=== PATIENT | male | born 1950 | race Caucasian/White ===

== ENCOUNTER 2024-02-06 06:22 | Inpatient (IN) ==
--- NOTE | 2024-01-31 10:17 | Anesthesiology Consultation ---
Date of Service January 31, 2024 Assessment & Plan (1) Encounter for pre-operative examination: - cardiology office visit 01/10/24 S: "...shortness of breath with exertion and recurrent episodes of syncope...worsening since 2019...multiple falls...2 week monitor...cardiac MRI...aortic root dilatation..." - Per vocational evaluator on 01/31/24: No known infectious disease contacts, current infectious disease symptoms in past 10 days or COVID positive test result in the past 30 days. Chart Review Chart Review: data entry initiated History Surgery Operation Date: 02/06/24 07:15 Proposed Procedures p Transesophageal Echo w/Anesthesia - Angel Gooden, Height/Weight Height: 5 ft 10 in Weight: 106.594 kg Allergies Allergy/AdvReac Type Severity Reaction Status Date / Time NSAIDS (Non-Steroidal Allergy Unknown unknown, Verified 01/31/24 10:12 Anti-Inflamma listed in [facility] EMR Medications Home Medications Medication Instructions Recorded Confirmed Last Taken amlodipine 2.5 mg tablet 2.5 mg PO QAM 01/31/24 01/31/24 Unknown aspirin 81 mg capsule 81 mg PO DAILY 01/31/24 01/31/24 Unknown atorvastatin 20 mg tablet 20 mg PO QAM 01/31/24 01/31/24 Unknown furosemide 20 mg tablet 20 mg PO QAM 01/31/24 01/31/24 Unknown magnesium 200 mg tablet 400 mg PO QPM 01/31/24 01/31/24 Unknown multivit,Ca,min-iron 8 mg-folic 1 tab PO QPM 01/31/24 01/31/24 Unknown acid 200 mcg-lycopene 600 mcg tablet (Centrum Men) potassium chloride 10 mEq 10 meq PO QAM 01/31/24 01/31/24 Unknown capsule,extended release valsartan 320 mg tablet 320 mg PO HS 01/31/24 01/31/24 Unknown vitamin B complex 2 tab PO DAILY 01/31/24 01/31/24 Unknown Past Medical History Medical History (Updated 01/31/24 @ 10:10 by Mily Bob PA-C) Aortic valve regurgitation had cardiac MRI last week, Dr. Gooden, also had echo recently - [address] History of melanoma (1997) left arm, removed HLD (hyperlipidemia) Hx of Crohn's disease > 30 years ago Hx of lower gastrointestinal bleeding (1985) due to chron's, had 2 units prbc's Hx of vertigo started getting episodes in 2020, where he had "chest pounding" symptoms and dizziness- worked up by pcp and then got new pcp- then got to dr. gooden, currently being worked up Hypertension Peripheral edema more on left side, takes lasix daily Past Surgical History Surgical History History of bowel resection (1985) 1.5 foot removed at ileum-cecum removed, due to tumor - benign - History of tonsillectomy and adenoidectomy (1955) Hx of bilateral cataract extraction (2022) Hx of colonoscopy Hx of hernia repair (2013) [facility], several years ago, right inguinal Hx of melanoma excision (1997) left arm, also had ln removed in arm pit Social History Smoking Status: Never smoker Do You Dip or Chew Tobacco: No Hx Alcohol Use: No Alcohol Intake Frequency Comment: quit in the Hx Substance Use: No substance use type: does not use Testing Laboratory Results 01/10/24 SODIUM: 142 POTASSIUM: 4.1 CHLORIDE: 104 CO2: 26 BUN: 30 CREATININE: 1.2 GLUCOSE: 95 Electrocardiogram Date: 12/29/23 Sinus rhythm with 1st degree AV block and with fusion complexes, rate 91 bpm RBBB Left anterior fascicular block Bifascicular block LVH with secondary repolarization abnormality Chest X-Ray Date: 09/30/23 No pulmonary infiltrate. Aortic atherosclerosis and ectasia or aneurysmal dilatation. Echocardiogram Date: 12/29/23 EF 50-54% Moderate cLVH Septal motion is abnormal consistent with intraventricular conduction delay Aortic valve is mildly calcified with moderate to severe aortic insufficiency in an eccentric jet coursing across the anterior mitral valve leaflet. Severity may be underestimated by current study. Moderately enlarged aortic root and proximal ascending aorta Other Testing Cardiac MRI 01/25/24 Mild aortic regurgitation Ascending aorta moderately dilated at 45 mm, root measures 46 mm EF 34% Chest CT 10/06/23 Ectasia of ascending thoracic aorta which measures up to 4.8 cm Solid pulmonary nodules
--- OUTSIDE RECORDS SUMMARY | 2024-02-06 06:35 | External Medical Summary | Summary of Care ---
Author Name Unknown Organization [facility] Address [address] [place] [address] Phone [phone] Care Team Providers Care Control Analyst Name Role Phone Gabriela Rangel MD Primary Care Provider [phone] Reason for Visit * Reason Onset Date Comments Medication Refill 01/27/2024 Encounter Details Date Type Department Care Team (Late st Contact Info) Description 01/27/2024 Refill General Internal Medicine [facility] [address] [facility] [place] [address] Gabriela Rangel MD [address] [place] [address] Nonrheumatic aortic valve insufficiency; Chronic diastolic heart failure due to valvular disease (HCC) Allergies Active Allergy Reactions Criticality Noted Date Comments Lactose Intolerance 01/29/2008 Nsaids Other (Please comment) 01/29/2008 Internal bleeding documented as of this encounter (statuses as of 01/30/2024) Medications MULTIVITAL-M PO TABS 4 Active Vitamin B Complex-C Oral Capsule Take 1 Capsule by mouth in the morning. 30 Capsule 3 Active amLODIPine Besylate 2.5 MG Oral Tablet (Norvasc) Take 1 Tablet by mouth in the morning. Active Valsartan 320 MG Oral Tablet (Diovan)Indicat ions:HTN, goal below 140/90 Take 1 Tablet by mouth in the morning. 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 with food.. 100 Tablet 5 4 Active Additional Information Patient not taking.Reported on 01/10/2024 Atorvastatin Calcium 20 MG Oral Tablet (Lipitor)Indica tions:Atheroscl erosis of [place] coronary artery of [place] heart without angina pectoris Take 1 Tablet by mouth in the morning. 90 Tablet 5 4 Active Furosemide 20 MG Oral Tablet (Lasix)Indicati ons:Nonrheumati c aortic valve insufficiency,C hronic diastolic heart failure due to valvular disease (HCC) Take 1 Tablet by mouth in the morning. 90 Tablet 1 4 Active Potassium Chloride ER 10 MEQ Oral Capsule Extended ReleaseIndicati ons:Nonrheumati c aortic valve insufficiency,C hronic diastolic heart failure due to valvular disease (HCC) Take 1 Capsule by mouth in the morning. 90 Capsule 1 4 Active documented as of this encounter (statuses as of 01/30/2024) Active Problems Problem Noted Date Diagnosed Date Crohn's disease of large intestine without compl ication 05/09/2023 Hx of actinic keratosis 09/06/2019 Crohn's disease, unspecified, without complicati ons 12/22/2016 History of basal cell carcinoma 07/16/2013 Overview (09/06/2019): Back 2010 HTN, goal below 140/90 05/03/2012 Hx of melanoma of skin 05/31/2011 Overview (09/06/2019): MM date 1997, Depth 3.38mm, Location left posterior arm SLN negative BMI 32.0-32.9,adult 07/21/2009 Overview (07/21/2009): Per Obesity Protocol, #19 documented as of this encounter (statuses as of 01/30/2024) Resolved Problems Problem Noted Date Diagnosed Date Resolved Date Prediabetes 03/22/2017 02/24/2018 Overview: Per Prediabetes protocol #1 Hearing loss 05/03/2012 02/13/2018 ADVANCE DIRECTIVE INFORMATION 01/25/2012 12/12/2023 Hemorrhoids, external without complications 01/29/2008 12/22/2016 documented as of this encounter (statuses as of 01/30/2024) Immunizations Name Administration Dates Next Due COVID-19 mRNA, LNP-s, No Pre serve, 2-Dose Series (Lulu) 05/22/2021,04/30/2020,04/04/2020 HEP A - Hepatitis A (Adult > 18 yrs) 02/22/2017 Pneumococcal Conjugate Vacc, 13 Valent (Prevnar) 05/06/2014 Pneumococcal Polysaccharide PPV23 (Pneumovax) 08/08/2017,05/03/2012 Season Influenza, Quad, PF, Adjuvanted, 65+ Yrs, IM (FLUAD) 10/23/2019 Seasonal Influenza Vac., MDV , IM, 0.5 mL (Fluzone) 11/05/2013,11/03/2012,05/03/2012,11/21,11/08/2007 Seasonal Influenza Virus Vac cine, Unspecified Formulation 11/08/2019,10/29/2018 Seasonal Influenza, High Dos e, Trivalent, PF, IM (Fluzone HD) 12/12/2018 Seasonal Influenza, PF, 6 M & above, IM , (FluLaval or Fluzone) 10/21/2020,02/13/2018,12/22/2016 Seasonal Influenza, Quadriva lent, No Preserve, IM 11/13/2015,11/07/2014 TDAP (age 10 and older)(Boostrix) 07/26/2018 TDAP, Age 7 and older, IM (Adacel) 01/29/2008 Varicella Zoster Vaccine (Adult) 11/03/2012 Zoster Vaccine Recombinant (Shingrix) 10/21/2020 ,06/06/2020 documented as of this encounter Social History Tobacco Use Types Packs/Day Years Used Date Smoking Tobacco: Some Days Cigars Smokeless Tobacco: Never Comments:cigar 3-4 times per week Alcohol Use Standard Drinks/Week Comments No 0 (1 standard drink = 0.6 oz pur e alcohol) PHQ-2 Answer Date Recorded PHQ Adult Total Score 0 12/15/2022 Hunger Vital Sign Answer Date Recorded Within the past 12 months, y ou worried that your food would run out before you got the money to buy more. Never true 12/07/19 23 Within the past 12 months, t he food you bought just didn't last and you didn't have money to get more. Never true 12/06/2022 Childcare Answer Date Recorded Do you feel overwhelmed with taking care of a child, family member or friend? No 12/06/2022 Does your family need help f inding childcare? (Household - for ages 0-17 years) Not on file 12/06/2022 Clothing Answer Date Recorded Have you been unable to get clothing when it was really needed? No 12/06/2022 Is your family able to get c lothes or diapers when needed? (Household - for ages 0-17 years) Not on file 12/06/2022 Personal Safety Answer Date Recorded Do you feel unsafe or have concerns for your saf ety? No 12/06/2022 Do you have concerns for you r family's safety? (Household - for ages 0-17 years) Not on file 12/06/2022 Utilities Answer Date Recorded Do you have trouble paying y our heating, water, or electric bill? (Adult - for ages 18 years and over) Not on file 12/10/2023 Is your family able to pay t he heat, water, or electric bill? (Household - for ages 0-17 years) Not on file 12/10/2023 Does your family have access to good internet? (Household - for ages 0-17 years) Not on file 12/10/2023 Employment Status Answer Date Recorded Are you unemployed or without regular income? No 12/06/2022 Does the household have a re gular source of income? (Household - for ages 0-17 years) Not on file 12/06/2022 Social Connections Answer Date Recorded How often do you feel lonely or isolated from those around you? (Adult - for ages 18 years and over) Not on file 12/10/2023 Financial Resource Strain Answer Date R ecorded Do you have any trouble payi ng for your medications, or do you think you might in the future? No 12/06/2022 Does your family have troubl e paying for medicine? (Household - for ages 0-17 years) Not on file 12/06/2022 Transportation Needs Answer Date Record ed READ ONLY Do you have troubl e getting a ride to medical visits or work? Never True 12/06/2022 Does your family have a hard time getting a ride to doctors visits? (Household - for ages 0-17 years) Not on file 12/06/2022 Has lack of transportation k ept you from medical appointments, meetings, work, or from getting things needed for daily living? Check all that apply. (Adult - for ages 18 years and over) Not on file 12/06/2022 Do you (or your family) have trouble finding or paying for a ride (transportation)? (Household - for ages 0-17 years) Not on file 12/06/2022 Housing Stability Answer Date Recorded Do you currently live in a s helter or have no steady place to sleep at night? No 12/06/2022 READ ONLY Do you think you a re at risk of becoming homeless? No 12/06/2022 Does your family worry about paying for your home or becoming homeless? (Household - for ages 0-17 years) Not on file 1 Are you homeless or worried that you might be in the future? (Adult - for ages 18 years and over) Not on file Are you (or your family) yefri eless or worried that you might be in the future? (Household - for ages 0-17 years) Not on file Food Insecurity Answer Date Recorded Do you need food for this week? No 12/06/2022 Are you able to get enough f ood for your family? (Household - for ages 0-17 years) Not on file 12/06/2022 Does your family need food t his week? (Household - for ages 0-17 years) Not on file 12/06/2022 Do you always have enough fo od for your family? (Household - for ages 0-17 years) Not on file 12/06/2022 Sex and Gender Information Value Date Recorded Sex Assigned at Male 06/05/2018 9:11 AM EDT Legal Sex Male 6:40 AM EST Gender Identity Male 06/05/2018 9:11 AM EDT Sexual Orientation Straight 06/05/2018 9: 11 AM EDT Occupation Industry Job Start Date Job End Date Not on file Not on file Not on file Not on file documented as of this encounter Plan of Treatment Upcoming Encounters Date Type Department Care Team (Late st Contact Info) Description 03/19/2024 9:00 AM EST Office Visit Cardiology, [facility] [address] [place] [address] Krys Garcia CRNP [address] [facility] [place] [address] 08/03/2024 3:45 PM EDT Office Visit Dermatology [facility] [address] [facility] [place] [address] Darin Tolbert MD [address] [facility] [place] [address] 10/12/2024 9:00 AM EDT Imaging Radiology [facility] [address] [facility] [address] [place] [address] Scheduled Procedures Name Priority Associated Diagnoses Date/Ti me COLONOSCOPY FLEXIBLE PROXIMAL DIAGNOSTIC Recall Crohn's disease (HCC) Health Maintenance Due Date Last Done Comments Adult Wellness Visit 06/06/2019 06/05/2018 COVID-19 Vaccine ( season) 2023 05/22/2021, 04/30/2020, 04/04/2020 Influenza Vaccine (FLU shot) (#1) 2023 10/21/2020, 11/08/2019, 10/23/2019, Additional history exists Depression Screening 12/16/2023 12/15/2022 *NEPHROLOGY REFERRAL DUE TO RESISTANT HTN 01/12/2024 GFR 01/09/2025 01/10/2024, 09/08, 05/09/2023, Additional history exists Albumin/Creatinine Ratio 04/20/2025 04/20/2022 Colonoscopy 06/05/2026 06/06/2023, 05/09, 04/11/2019, Additional history exists DTap/Tdap Vaccines (3 - Td or Tdap) 07/26/2028 07/26/2018, 01/29/2008 Pneumococcal Vaccine: 65+ Years Completed 08/08/2017, 05/06/2014, 05/03/2012 Zoster Vaccines Completed 10/21/2020, 05/10, 11/03/2012 HPV (Gardasil) Vaccine Aged Out No lo nger eligible based on patient's age to complete this topic Hepatitis B Vaccine Aged Out No longe r eligible based on patient's age to complete this topic MENINGOCOCCAL (MENACTRA/MENVEO) Aged Out No longer eligible based on patient's age to complete this topic documented as of this encounter Medical Devices Implanted Type Area Project Controller Device Identifier Shelf Expiration Date Model / Serial / Lot Lens Li61ao 13.00mm 21.00 - [id number] - [id number] Implanted:Qty: 1 on 12/21/2022 by Jose Mittal MD at OR [facility] Left: Eye [employer]OM[employer] 07/08/2027 [id number] / [id number] / [id number] Lens Li61ao 13.00mm 20.50 - [id number] - [id number] Implanted:Qty: 1 on 12/28/2022 by Jose Mittal MD at OR [facility] Right: Eye [employer] LOMB 09/07/2027 [id number] / [id number] / [id number] documented as of this encounter Visit Diagnoses Diagnosis Nonrheumatic aortic valve insufficiency Aortic valve disorders Chronic diastolic heart failure due to valvular disease (HCC) documented in this encounter Advance Directives * Full Code (Latest Code Status on File) Date Activated Date Inactivated Comments 12/28/2022 1:35 PM 12/28/2022 6:57 PM This order reflects the patients wishes and were consensually agreed upon. Question Answer Comments Discussion of Advance Directives occurred with: Patient Does the patient have a Living Will? No Does the patient have Health Care Power of Attor josh? No * Full Code Date Activated Date Inactivated Comments 12/21/2022 10:16 AM 12/21/2022 4:02 PM This orde r reflects the patients wishes and were consensually agreed upon. Question Answer Comments Discussion of Advance Directives occurred with: Patient Does the patient have a Living Will? No Does the patient have Health Care Power of Attor josh? No Care Teams Control Analyst Relationship Specialty Start Date End Date Gabriela Rangel MD [address] [place] [address] PCP - General Internal Medicine 10/05/23 documented as of this encounter
--- OUTSIDE RECORDS SUMMARY | 2024-02-06 06:35 | External Medical Summary | Summary of Care ---
Author Name Unknown Organization [facility] Address [address] [place] [address] Phone [phone] Care Team Providers Care Manager Of Data Name Role Phone Gabriela Rangel MD Primary Care Provider [phone] Reason for Referral * Precert (Diagnostic Medical) (Within 10 days (routine)) - Authorized Specialty Diagnoses / Procedures Referred By Contac t Referred To Contact Cardiac Studies Diagnoses Nonrheumatic aortic valve insufficiency Syncope, unspecified syncope type Procedures TRANSESOPHAGEAL ECHO (COMPLETE) Angel Gooden DO [address] [place] [address] Phone: tel: fax: Referral ID Status Reason Start Date Expiration Date V isits Requested Visits Authorized [id number] Authorized Precert 01/31/2024 999 999 Reason for Visit * Reason Onset Date Comments Abnormal Test Results 01/30/2024 Encounter Details Date Type Department Care Team (Late st Contact Info) Description 01/30/2024 Telephone Cardiology, [facility] [address] [place] [address] Angel Gooden DO [address] [place] [address] Abnormal Test Results Allergies Active Allergy Reactions Criticality Noted Date Comments Lactose Intolerance 01/29/2008 Nsaids Other (Please comment) 01/29/2008 Internal bleeding documented as of this encounter (statuses as of 01/31/2024) Medications MULTIVITAL-M PO TABS 4 Active Vitamin [...] MG Oral Tablet ChewableIndicat ions:Atheroscle rosis of [place] coronary artery of [place] heart without angina pectoris Take 1 Tablet by mouth in the morning. with food.. 100 Tablet 5 4 Active Additional Information Patient not taking.Reported on 01/10/2024 Atorvastatin Calcium 20 MG Oral Tablet (Lipitor)Indica tions:Atheroscl erosis of [place] coronary artery of [place] heart without angina pectoris Take 1 Tablet [...] as of this encounter (statuses as of 01/31/2024) Active Problems Problem Noted Date Diagnosed Date [...] as of this encounter (statuses as of 01/31/2024) Resolved Problems Problem Noted Date Diagnosed Date Resolved Date Prediabetes 03/22/2017 02/24/2018 Overview: Per Prediabetes protocol #1 Hearing loss 05/03/2012 02/13/2018 ADVANCE DIRECTIVE INFORMATION 01/25/2012 12/12/2023 Hemorrhoids, external without complications 01/29/2008 12/22/2016 documented as of this encounter (statuses as of 01/31/2024) Immunizations Name Administration Dates Next Due COVID-19 mRNA, LNP-s, No Pre serve, 2-Dose Series ([address]) 05/22/2021,04/30/2020,04/04/2020 HEP A - Hepatitis A (Adult [...] on file documented as of this encounter Miscellaneous Notes * Telephone Encounter - Ken Heath LPN - 01/31/2024 9:01 AM EST Procedure set up. Patient aware via phone call and MyChart instructions. * Telephone Encounter - Angel Gooden DO - 01/30/2024 5:16 PM EST I called and discussed recent test results with the patient. Findings are consistent with severe aortic stenosis with left ventricular systolic dysfunction which would correlate with his recent complaints of shortness of breath with exertion. Although the initial cardiac MRI report described mild aortic regurgitation, the measurements were reassessed and an addendum is in process that on recalculation cardiac MRI results are consistent with severe aortic valve regurgitation. Left ventricular ejection fraction by MRI is moderately reduced at 34%. Recommend proceeding with a transesophageal echocardiogram further assessment. Patient agreeable. Cardiology nursing, please help schedule MOHAMUD, perhaps with me and anesthesia on Tuesday02/06/2024 at [place]. Repeat lab work including a CBC, basic metabolic panel, and coagulation studies he had been ordered. Patient agreeable to MOHAMUD. Future considerations include cardiac catheterization and CT surgery referral. Angel Gooden DO documented in this encounter Plan of Treatment Upcoming Encounters Date Type Department Care Team (Late st Contact Info) Description 03/19/2024 9:00 AM EST Office Visit Cardiology, [facility] [address] [place] [address] Krys Garcia CRNP [address] [facility] [place] [address] 08/03/2024 3:45 PM EDT Office Visit Dermatology [facility] [address] [facility] [place] [address] Darin Tolbert MD [address] [facility] [address] 10/12/2024 9:00 AM EDT Imaging Radiology [address] [place] [address] Scheduled Orders Name Type Priority Associated Diagnoses Orde r Schedule CBC Lab Routine Nonrheumatic aortic valve insufficiency Syncope, unspecified syncope type Preoperative cardiovascular examination Expected: 01/31/2024, Expires: 05/04/2024 BASIC METABOLIC PANEL Lab Routine Nonrheumatic aortic valve insufficiency Syncope, unspecified syncope type Preoperative cardiovascular examination Expected: 01/31/2024, Expires: 05/04/2024 APTT Lab Routine Nonrheumatic aortic valve insufficiency Syncope, unspecified syncope type Preoperative cardiovascular examination Expected: 01/31/2024, Expires: 05/04/2024 PT INR Lab Routine Nonrheumatic aortic valve insufficiency Syncope, unspecified syncope type Preoperative cardiovascular examination Expected: 01/31/2024, Expires: 05/04/2024 TRANSESOPHAGEAL ECHO (COMPLETE) Echocardiology Routine Nonrheumatic aortic valve insufficiency Syncope, unspecified syncope type Expected: 01/31/2024, Expires: 05/30/2024 Scheduled Procedures Name Priority Associated Diagnoses Date/Ti [...] this encounter Medical Devices Implanted Type Area Diesel Mechanic Farm Device Identifier Shelf Expiration Date Model / Serial / Lot Lens Li61ao 13.00mm 21.00 - [id number] - [id number] Implanted:Qty: 1 on 12/21/2022 by Jose Mittal MD at OR [facility] Left: Eye [employer]CH [employer] LOMB 07/08/2027 [id number] / [id number] / [id number] Lens Li61ao 13.00mm 20.50 - [id number] - [id number] Implanted:Qty: 1 on 12/28/2022 by Jose Mittal MD at OR [facility] Right: Eye [employer]CH [employer] LOMB 09/07/2027 [id number] / [id number] / [id number] documented as of this encounter Visit Diagnoses Diagnosis Nonrheumatic aortic valve insufficiency- Primary Aortic valve disorders Syncope, unspecified syncope type Preoperative cardiovascular examination Pre-operative cardiovascular examination documented in this encounter Advance Directives * [...] Power of Attor josh? No Care Teams Manager Of Data Relationship Specialty Start Date End Date Gabriela Rangel MD [address] [place] [address] PCP - General Internal Medicine 10/05/23 documented as of this encounter
--- OUTSIDE RECORDS SUMMARY | 2024-02-06 06:35 | External Medical Summary | Summary of Care ---
Author Name Unknown Organization [facility] Address [address] [place] [address] Phone [phone] Care Team Providers Care Cyber Operator Name Role Phone Segundo Rangel MD Primary Care Provider [phone] Reason for Visit * Reason Onset Date Comments Medication Refill 01/25/2024 Encounter Details Date Type Department Care Team (Late st Contact Info) Description 01/25/2024 Refill General Internal Medicine [facility] 200 [facility] [place] [address] Segundo Rangel MD [address] [place] [address] Nonrheumatic aortic valve insufficiency; Chronic diastolic heart failure due to valvular disease (HCC) Allergies Active Allergy Reactions Criticality Noted Date Comments Lactose Intolerance 01/29/2008 Nsaids Other (Please comment) 01/29/2008 Internal bleeding documented as of this encounter (statuses as of 01/25/2024) Medications MULTIVITAL-M PO TABS 4 Active Vitamin B Complex-C Oral Capsule Take 1 Capsule by mouth in the morning. 30 Capsule 3 Active amLODIPine Besylate 2.5 MG Oral Tablet (Norvasc) Take 1 Tablet by mouth in the morning. Active Valsartan 320 MG Oral Tablet (Diovan)Indica tions:HTN, goal below 140/90 Take 1 Tablet by mouth in the morning. 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 with food.. 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 90 Tablet 5 4 Active Furosemide 20 MG Oral Tablet (Lasix)Indicat ions:Nonrheuma tic aortic valve insufficiency, Chronic diastolic heart failure due to valvular disease (HCC) Take 1 Tablet by mouth in the morning. 90 Tablet 1 4 Active Potassium Chloride ER 10 MEQ Oral Capsule Extended ReleaseIndicat ions:Nonrheuma tic aortic valve insufficiency, Chronic diastolic heart failure due to valvular disease (HCC) Take 1 Capsule by mouth in the morning. 90 Capsule 1 4 Active Furosemide 20 MG Oral Tablet (Lasix)Indicat ions:Nonrheuma tic aortic valve insufficiency, Chronic diastolic heart failure due to valvular disease (HCC) Take 1 Tablet by mouth in the morning. 30 Tablet 1 4 01/25/20 24 Discontin ued(Refil l) Potassium Chloride ER 10 MEQ Oral Capsule Extended ReleaseIndicat ions:Nonrheuma tic aortic valve insufficiency, Chronic diastolic heart failure due to valvular disease (HCC) Take 1 Capsule by mouth in the morning. 30 Capsule 1 4 01/25/20 24 Discontin ued(Refil l) Hospital, Clinic, or Other Facility Administered Medication Ordered Dose Route Frequency Start Date End Date Status sodium chloride 0.9 % flush/inj 50 mL 50 mL IV PUSH ONCE 01/25/2024 01/25/2024 Active documented as of this encounter (statuses as of 01/25/2024) Active Problems Problem Noted Date Diagnosed Date [...] as of this encounter (statuses as of 01/25/2024) Resolved Problems Problem Noted Date Diagnosed Date Resolved Date Prediabetes 03/22/2017 02/24/2018 Overview: Per Prediabetes protocol #1 Hearing loss 05/03/2012 02/13/2018 ADVANCE DIRECTIVE INFORMATION 01/25/2012 12/12/2023 Hemorrhoids, external without complications 01/29/2008 12/22/2016 documented as of this encounter (statuses as of 01/25/2024) Immunizations Name Administration Dates Next Due COVID-19 mRNA, LNP-s, No Pre serve, 2-Dose Series ([employer]) 05/22/2021,04/30/2020,04/04/2020 HEP A - Hepatitis A (Adult [...] 18 years and over) Not on file 10/30/202 3 Are you (or your family) yefri eless [...] encounter Miscellaneous Notes * Telephone Encounter - Segundo Rangel MD - 01/25/2024 1:25 PM ESTSigned Prescriptions: Disp Refills Furosemide 20 MG Oral Tablet (Lasix) 90 Tab*1 Sig: Take 1 Tablet by mouth in the morning. Authorizing Provider: SEGUNDO RANGEL Potassium Chloride ER 10 MEQ Oral Capsule *90 Cap*1 Sig: Take 1 Capsule by mouth in the morning. Authorizing Provider: SEGUNDO RANGEL * Telephone Encounter - Sara Alvarado CMA - 01/25/2024 11:50 AM ESTPending Prescriptions: Disp Refills Furosemide 20 MG Oral Tablet (Lasix) 90 Tab*1 Sig: Take 1 Tablet by mouth in the morning. Potassium Chloride ER 10 MEQ Oral Capsule *90 Cap*1 Sig: Take 1 Capsule by mouth in the morning. * Telephone Encounter - Sara Alvarado CMA - 01/25/2024 11:49 AM EST Did you pend patient's preferred pharmacy and medication before forwarding?yes Pharmacy: [id number] [facility] Pending Prescriptions: Disp Refills Furosemide 20 MG Oral Tablet (Lasix) 90 Tab*1 Sig: Take 1 Tablet by mouth in the morning. Potassium Chloride ER 10 MEQ Oral Capsule*90 Cap*1 Sig: Take 1 Capsule by mouth in the morning. Last Visit: 10/31/2023 (in office), Visit date not found (telemedicine) Next Visit: Visit date not found If no future appointments scheduled, and last appointment is greater than a year ago, please schedule patient for a follow-up appointment Last date the medication was ordered: 12/30/23 Is this request for a controlled substance?No Urine Drug Screen:No results found for this or any previous visit. Patient Phone Numbers Labs: Lab Results Component Value Date/Time CREAT 1.2 01/10/2024 10:37 AM CREAT 1.2 03/09/2019 09:35 AM POTASSIUM 4.1 01/10/2024 10:37 AM POTASSIUM 4.2 03/09/2019 09:35 AM LDL 57 01/10/2024 10:37 AM LDL 74 05/09/2023 09:22 AM LDL 79 03/09/2019 09:35 AM LDL NOT APPLICABLE 03/09/2019 09:35 AM ALT 36 01/10/2024 10:37 AM ALT 31 03/09/2019 09:35 AM HGBA1C 5.5 06/09/2023 09:45 AM HGBA1C 5.5 02/13/2018 09:49 AM * Telephone Encounter - Pau Enrique OSA - 01/25/2024 11:34 AM EST 90 day request * Telephone Encounter - Pau Enrique OSA - 01/25/2024 11:33 AM EST Did you pend patient's preferred pharmacy and medication before forwarding?yes Pharmacy: [id number] [id number] [facility] Pending Prescriptions: Disp Refills Furosemide 20 MG Oral Tablet (Lasix) 30 Tab*1 Sig: Take 1 Tablet by mouth in the morning. Potassium Chloride ER 10 MEQ Oral Capsule*30 Cap*1 Sig: Take 1 Capsule by mouth in the morning. Last Visit: 10/31/2023 (in office), Visit date not found (telemedicine) Next Visit: Visit date not found If no future appointments scheduled, and last appointment is greater than a year ago, please schedule patient for a follow-up appointment Last date the medication was ordered: [id number] Is this request for a controlled substance?No Urine Drug Screen:No results found for this or any previous visit. Patient Phone Numbers Labs: Lab Results Component Value Date/Time CREAT 1.2 01/10/2024 10:37 AM CREAT 1.2 03/09/2019 09:35 AM POTASSIUM 4.1 01/10/2024 10:37 AM POTASSIUM 4.2 03/09/2019 09:35 AM LDL 57 01/10/2024 10:37 AM LDL 74 05/09/2023 09:22 AM LDL 79 03/09/2019 09:35 AM LDL NOT APPLICABLE 03/09/2019 09:35 AM ALT 36 01/10/2024 10:37 AM ALT 31 03/09/2019 09:35 AM HGBA1C 5.5 06/09/2023 09:45 AM HGBA1C 5.5 02/13/2018 09:49 AM documented in this encounter Plan of Treatment Upcoming Encounters Date Type Department Care Team (Late st Contact Info) Description 03/19/2024 9:00 AM EST Office Visit Cardiology, [facility] [address] [facility] [place] [address] Krys Garcia CRNP [address] [place] [address] 08/03/2024 3:45 PM EDT Office Visit Dermatology [facility] [address] [place] [address] Darin Tolbert MD [address] [place] [address] 10/12/2024 9:00 AM EDT Imaging Radiology [facility] [address] [facility] [place] [address] Scheduled Procedures Name Priority Associated Diagnoses Date/Ti [...] 08/08/2017, 05/06/2014, 05/03/2012 Zoster Vaccines Completed 10/21/2020, 04/3 , 11/03/2012 HPV (Gardasil) Vaccine Aged Out No lo nger eligible based on patient's age to complete this topic Hepatitis B Vaccine Aged Out No longe r eligible based on patient's age to complete this topic MENINGOCOCCAL (MENACTRA/MENVEO) Aged Out No longer eligible based on patient's age to complete this topic documented as of this encounter Medical Devices Implanted Type Area Director Television Device Identifier Shelf Expiration Date Model / Serial / Lot Lens Li61ao 13.00mm 21.00 - [id number] - [id number] Implanted:Qty: 1 on 12/21/2022 by Jose Mittal MD at OR [facility] Left: Eye [employer] LOMB 07/08/2027 [id number] / [id number] / [id number] Lens Li61ao 13.00mm 20.50 - [id number] - [id number] Implanted:Qty: 1 on 12/28/2022 by Jose Mittal MD at OR [facility] Right: Eye BAUSCH [employer] LOMB 09/07/2027 [id number] / [id number] / [id number] documented as of this encounter Visit Diagnoses [...] Power of Attor josh? No Care Teams Cyber Operator Relationship Specialty Start Date End Date Segundo Rangel MD 200 [place] [address] PCP - General Internal Medicine 10/05/23 documented as of this encounter
--- OUTSIDE RECORDS SUMMARY | 2024-02-06 06:35 | External Medical Summary | Summary of Care ---
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 with food.. 100 Tablet 5 4 Active Additional Information Patient not taking.Reported on 01/10/2024 Furosemide 20 MG Oral Tablet (Lasix)Indicati ons:Nonrheumati c aortic valve insufficiency,C hronic diastolic heart failure due to valvular disease (HCC) Take 1 Tablet by mouth in the morning. 30 Tablet 1 4 Active Potassium Chloride ER 10 MEQ Oral Capsule Extended ReleaseIndicati ons:Nonrheumati c aortic valve insufficiency,C hronic diastolic heart failure due to valvular disease (HCC) Take 1 Capsule by mouth in the morning. 30 Capsule 1 4 Active Atorvastatin Calcium 20 MG Oral Tablet (Lipitor)Indica tions:Atheroscl erosis of [place] coronary artery of [place] heart without angina pectoris Take 1 Tablet by mouth in the morning. 30 Tablet 5 4 Active documented as of this encounter [...] mRNA, LNP-s, No Pre serve, 2-Dose Series ([employer]) 05/22/2021,04/30/2020,04/04/2020 HEP A - Hepatitis A (Adult [...] Team (Late st Contact Info) Description 01/25/2024 9:30 AM EST Imaging Radiology [address] 132 [facility] [place] [address] 03/19/2024 9:00 AM EST Office Visit Cardiology, [facility] 132 [facility] [place] [address] Krys Garcia CRNP 400 [facility] [place] [address] 08/03/2024 3:45 PM EDT Office Visit Dermatology [facility] 200 [facility] [place] [address] Darin Tolbert MD 200 [facility] [place] [address] 10/12/2024 9:00 AM EDT Imaging Radiology [address] 132 [facility] [place] [address] Scheduled Procedures Name Priority Associated Diagnoses Date/Ti [...] this encounter Medical Devices Implanted Type Area Area Field Person Device Identifier Shelf Expiration Date Model / Serial / Lot Lens Li61ao 13.00mm 21.00 - [id number] - [id number] Implanted:Qty: 1 on 12/21/2022 by Jose Mittal MD at OR [facility] Left: Eye [employer]OMB 07/08/2027 [id number] / [id number] / [id number] Lens Li61ao 13.00mm 20.50 - [id number] - [id number] Implanted:Qty: 1 on 12/28/2022 by Jose Mittal MD at OR [facility] Right: Eye [employer]CH [employer] LOMB 09/07/2027 [id number] / [id number] / [id number] documented as of this encounter Advance Directives * Full Code [...] Power of Attor josh? No Care Teams Card Decorator Relationship Specialty Start Date End Date Gabriela Rangel MD 200 [facility] [place] [address] PCP - General Internal Medicine 10/05/23 documented as of this encounter
--- OUTSIDE RECORDS SUMMARY | 2024-02-06 06:35 | External Medical Summary | Summary of Care ---
Author Name Unknown Organization [facility] Address [address] [place] [address] Phone [phone] Care Team Providers Care Spinning Frame Fixer Name Role Phone Gabriela Rangel MD Primary Care Provider [phone] Reason for Visit * Reason Onset Date Comments Appointment 01/23/2024 Encounter Details Date Type Department Care Team (Late st Contact Info) Description 01/23/2024 Telephone Radiology [address] [place], [place] [phone] Bárbara Bolanos, RT (R) Appointment Allergies Active Allergy Reactions Criticality Noted Date Comments Lactose Intolerance 01/29/2008 Nsaids Other (Please comment) 01/29/2008 Internal bleeding documented as of this encounter (statuses as of 01/23/2024) Medications MULTIVITAL-M PO TABS 4 Active Vitamin [...] MG Oral Tablet ChewableIndicat ions:Atheroscle 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 30 Tablet 5 4 Active documented as of this encounter (statuses as of 01/23/2024) Active Problems Problem Noted Date Diagnosed Date [...] as of this encounter (statuses as of 01/23/2024) Resolved Problems Problem Noted Date Diagnosed Date Resolved Date Prediabetes 03/22/2017 02/24/2018 Overview: Per Prediabetes protocol #1 Hearing loss 05/03/2012 02/13/2018 ADVANCE DIRECTIVE INFORMATION 01/25/2012 12/12/2023 Hemorrhoids, external without complications 01/29/2008 12/22/2016 documented as of this encounter (statuses as of 01/23/2024) Immunizations Name Administration Dates Next Due COVID-19 mRNA, LNP-s, No Pre serve, 2-Dose Series ([employer]) 05/22/2021,04/30/2020,04/04/2020 HEP A - Hepatitis A (Adult [...] encounter Miscellaneous Notes * Telephone Encounter - Bárbara Bolanos RT (R) - 01/23/2024 9:31 AM EST Name: Roberto Moore Do you have any of the following: Pacemaker, stents, heart valves, aneurysm clips? No Have you ever worked with metal or have you ever gotten metal in your eyes? No Have you had a colonoscopy in the last 30 days? No On dialysis? No Do you have any dermals or body piercing's? No or ? Do you wear an insulin pump or diabetic monitor? NO RT Florin (R) documented in this encounter Plan of Treatment Upcoming Encounters Date Type Department Care Team (Late st Contact Info) Description 01/25/2024 9:30 AM EST Imaging Radiology [address] [address] 03/19/2024 9:00 AM EST Office Visit Cardiology, [address] [address] Krys Garcia CRNP [address] [place] [address] 08/03/2024 3:45 PM EDT [facility] [address] [place] [address] Darin Tolbert MD [address] [place] [address] 10/12/2024 9:00 AM EDT Imaging Radiology [address] [place] [address] Scheduled Procedures Name Priority Associated Diagnoses Date/Ti [...] this encounter Medical Devices Implanted Type Area Loft Worker Head Device Identifier Shelf Expiration Date Model / Serial / Lot Lens Li61ao 13.00mm 21.00 - [id number] - [id number] Implanted:Qty: 1 on 12/21/2022 by Jose Mittal MD at OR [facility] Left: Eye [employer]OMB 07/08/2027 [id number] / [id number] / [id number] Lens Li61ao 13.00mm 20.50 - [id number] - [id number] Implanted:Qty: 1 on 12/28/2022 by Jose Mittal MD at [facility] Right: Eye BAUSCH [employer] LOMB 09/07/2027 [id number] / [id number] / [id number] documented as of this encounter Advance Directives [...] Power of Attor josh? No Care Teams Spinning Frame Fixer Relationship Specialty Start Date End Date Gabriela Rangel MD 200 [place] [address] PCP - General Internal Medicine 10/05/23 documented as of this encounter
--- OUTSIDE RECORDS SUMMARY | 2024-02-06 06:35 | External Medical Summary | Summary of Care ---
Author Name Unknown Organization [facility] Address [address] [place] [address] Phone [phone] Care Team Providers Care Cloth Dyeing Range Tender Name Role Phone Gabriela Rangel MD Primary Care Provider [phone] Encounter Details Date Type Department Care Team (Late st Contact Info) Description 01/16/2024 Orders Only Outcomes Research Department [address], [place] [id number] Tari Bowens CHRA MyCode Research Other*[id number] Allergies Active Allergy Reactions Criticality Noted Date Comments Lactose Intolerance 01/29/2008 Nsaids Other (Please comment) 01/29/2008 Internal bleeding documented as of this encounter (statuses as of 01/16/2024) Medications MULTIVITAL-M PO TABS 4 Active Vitamin [...] MG Oral Tablet ChewableIndicat ions:Atheroscle 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 with food.. 100 Tablet 5 4 Active Additional Information Patient not taking.Reported on 01/10/2024 Atorvastatin Calcium 20 MG Oral Tablet (Lipitor)Indica tions:Atheroscl e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 30 Tablet 5 4 Active Furosemide 20 MG [...] the morning. 30 Capsule 1 4 Active documented as of this encounter (statuses as of 01/16/2024) Active Problems Problem Noted Date Diagnosed Date [...] as of this encounter (statuses as of 01/16/2024) Resolved Problems Problem Noted Date Diagnosed Date Resolved Date Prediabetes 03/22/2017 02/24/2018 Overview: Per Prediabetes protocol #1 Hearing loss 05/03/2012 02/13/2018 ADVANCE DIRECTIVE INFORMATION 01/25/2012 12/12/2023 Hemorrhoids, external without complications 01/29/2008 12/22/2016 documented as of this encounter (statuses as of 01/16/2024) Immunizations Name Administration Dates Next Due COVID-19 mRNA, LNP-s, No Pre serve, 2-Dose Series ([employer]) 05/22/2021,04/30/2020,04/04/2020 HEP A - Hepatitis A (Adult [...] 12/06/2022 Does the household have a re lar source of income? (Household - for ages [...] 03/19/2024 9:00 AM EST Office Visit Cardiology, [facility] 132 [facility] [place] [address] Krys Garcia CRNP [address] [place] [address] 08/03/2024 3:45 PM EDT Office Visit Dermatology [facility] 200 [facility] [place] [address] Darin Tolbert MD 200 [facility] [place] [address] 10/12/2024 9:00 AM EDT Imaging Radiology [address] 132 [facility] [place] [address] Scheduled Orders Name Type Priority Associated Diagnoses Orde r Schedule MYCODE SUBSEQUENT ADULT Lab Routine MyCode Research Other*[id number] Every 6 Months for 2 Occurrences starting 01/16/2024 until 02/04/2025 Scheduled Procedures Name Priority Associated Diagnoses Date/Ti [...] this encounter Medical Devices Implanted Type Area Seafood Harvester Device Identifier Shelf Expiration Date Model / Serial / Lot Lens Li61ao 13.00mm 21.00 - [id number] - [id number] Implanted:Qty: 1 on 12/21/2022 by Jose Mittal MD at OR [facility] Left: Eye [employer]USCH [employer] LOMB 07/08/2027 [id number] / [id number] / [id number] Lens Li61ao 13.00mm 20.50 - [id number] - [id number] Implanted:Qty: 1 on 12/28/2022 by Jose Mittal MD at OR [facility] Right: Eye BAUSCH & LOMB 09/07/2027 [id number] / [id number] / [id number] documented as of this encounter Visit Diagnoses Diagnosis MyCode Research Other*[id number] documented in this encounter Advance Directives * [...] Power of Attor josh? No Care Teams Cloth Dyeing Range Tender Relationship Specialty Start Date End Date Gabriela Rangel MD 200 [place] [address] PCP - General Internal Medicine 10/05/23 documented as of this encounter
--- OUTSIDE RECORDS SUMMARY | 2024-02-06 06:35 | External Medical Summary ---
Author Name Unknown Address Unknown Organization K01:[facility] - [facility] [address] Laboratory Report Ordering Provider Test Date Status JOSEPH BENAVIDEZ 02/02/2024 11:30:29 Final Anticoagulation may affect t esting. Refer to [facility] Test Catalog for a list of effects. Observation Date Value Abnormality Reference (Units ) Status aPTT panel - Platelet poor plasma 02/02/2024 11:30:29 28 21-38 (seconds) Final Performing Location [facility] [place] - [address] [facility] [address]
--- OUTSIDE RECORDS SUMMARY | 2024-02-06 06:35 | External Medical Summary | Summary of Care ---
Author Name Unknown Organization [facility] Address [address] [place] [address] Phone [phone] Care Team Providers Care Turnaround Planner Name Role Phone Gabriela Rangel MD Primary Care Provider [phone] Reason for Referral * Precert (Diagnostic Medical) (Within 10 days (routine)) - Authorized Specialty Diagnoses / Procedures Referred By Contac t Referred To Contact Cardiac Studies Diagnoses Nonrheumatic aortic valve insufficiency Syncope, unspecified syncope type Procedures TRANSESOPHAGEAL ECHO (COMPLETE) Angel Gooden DO [address] [place] [address] Phone: tel: fax: Referral ID Status Reason Start Date Expiration Date V isits Requested Visits Authorized [id number] Authorized Precert 01/31/2024 999 999 Reason for Visit * Reason Onset Date Comments Abnormal Test Results 01/30/2024 Encounter Details Date Type Department Care Team (Late st Contact Info) Description 01/30/2024 Telephone Cardiology, [facility] [address] [place] [address] Angel Gooden DO [address] [place] [address] Abnormal Test Results Allergies Active Allergy Reactions [...] MG Oral Tablet ChewableIndicat ions:Atheroscle rosis of [place] coronary artery of [place] heart without angina pectoris Take 1 Tablet by mouth in the morning. with food.. 100 Tablet 5 4 Active Additional Information Patient not taking.Reported on 01/10/2024 Atorvastatin Calcium 20 MG Oral Tablet (Lipitor)Indica tions:Atheroscl erosis of [place] coronary artery of [place] heart without angina pectoris Take 1 Tablet [...] mRNA, LNP-s, No Pre serve, 2-Dose Series ([employer] 05/22/2021,04/30/2020,04/04/2020 HEP A - Hepatitis A (Adult [...] Miscellaneous Notes * Telephone Encounter - Ken Hetah LPN - 01/31/2024 9:01 AM EST Procedure [...] with me and anesthesia on Tuesday02/06/2024 at ID. Repeat lab work including a CBC, basic metabolic panel, and coagulation studies he had been ordered. Patient agreeable to MOHAMUD. Future considerations include cardiac catheterization and CT surgery referral. Angel Gooden DO documented in this encounter Plan of Treatment Upcoming Encounters Date Type Department Care Team (Late st Contact Info) Description 03/19/2024 9:00 AM EST Office Visit Cardiology, [facility] [address] [place] [address] Krys Garcia CRNP [address] [facility] [place] [address] 08/03/2024 3:45 PM EDT Office Visit Dermatology [facility] 200 [facility] [place] [address] Darin Tolbert MD 200 [facility] [place] [address] 10/12/2024 9:00 AM EDT Imaging Radiology [address] [place] [address] Scheduled Orders Name Type Priority Associated Diagnoses [...] this encounter Medical Devices Implanted Type Area Customer Sales Distributor Device Identifier Shelf Expiration Date Model / Serial / Lot Lens Li61ao 13.00mm 21.00 - [id number] - [id number] Implanted:Qty: 1 on 12/21/2022 by Jose Mittal MD at OR [facility] Left: Eye [employer]OMB 07/08/2027 [id number] / [id number] / [id number] Lens Li61ao 13.00mm 20.50 - [id number] - [id number] Implanted:Qty: 1 on 12/28/2022 by Jose Mittal MD at OR [facility] Right: Eye [employer]CH [employer] LOMB 09/07/2027 [id number] / [id number] / [id number] documented as of this encounter Visit Diagnoses [...] Power of Attor josh? No Care Teams Turnaround Planner Relationship Specialty Start Date End Date Gabriela Rangel MD [address] [place] [address] PCP - General Internal Medicine 10/05/23 documented as of this encounter
--- OUTSIDE RECORDS SUMMARY | 2024-02-06 06:35 | External Medical Summary ---
Author Name Unknown Address Unknown Organization [facility] [address] [place] [address] Laboratory Report Ordering Provider Test Date Status JOSEPH BENAVIDEZ 02/02/2024 11:30:16 Final Warfarin Therapy
INR: 2 .0-3.0 conventional anticoagulation
INR: 2.5- 3.5 high intensity anticoagulation Observation Date Value Abnormality Reference (Units ) Status PT 02/02/2024 11:30:16 14.1 11.6-15.2 (seconds) Final INR 02/02/2024 11:30:16 1.1 0.8-1.2 Final Performing Location [facility] [place] [address]
--- OUTSIDE RECORDS SUMMARY | 2024-02-06 06:35 | External Medical Summary ---
Author Name Unknown Address Unknown Organization [facility] [place] [place] [address] Laboratory Report Ordering Provider Test Date Status JOSEPH BENAVIDEZ 02/02/2024 11:30:16 Final Observation Date Value Abnormality Reference (Units ) Status WBC, Total 02/02/2024 11:30:16 7.03 4.00-10.8 0 (K/uL) Final RBC 02/02/2024 11:30:16 4.69 4.50-5.25 (M/uL) Final Hemoglobin 02/02/2024 11:30:16 15.1 14.0-16.8 (g/dL) Final HCT 02/02/2024 11:30:16 44.1 40.0-48.4 (%) Final MCV 02/02/2024 11:30:16 94.0 82.0-99.5 (fL) Final MCH 02/02/2024 11:30:16 32.2 27.0-34.0 (pg) Final MCHC 02/02/2024 11:30:16 34.2 32.0-36.0 (g/dL) Final RDW 02/02/2024 11:30:16 13.0 11.5-15.5 (%) Final Platelets 02/02/2024 11:30:16 213 140-400 (K /uL) Final MPV 02/02/2024 11:30:16 10.6 6.6-11.1 ( fL) Final Performing Location [facility] [place] [address]
--- OUTSIDE RECORDS SUMMARY | 2024-02-06 06:35 | External Medical Summary | Summary of Care ---
Author Name Unknown Organization [facility] Address [address] [place] [address] Phone [phone] Care Team Providers Care Swing Frame Grinder Operator Name Role Phone Gabriela Rangel MD Primary Care Provider [phone] Reason for Visit * Reason Onset Date Comments Appointment 01/11/2024 PT- Roberto Pink RN: [id number] Please triage for MRI Cardiac Thank you Encounter Details Date Type Department Care Team (Late st Contact Info) Description 01/11/2024 Telephone Radiology, [address] [address] Requisition, External Radiology [address] [place] [address] Appointment (MENDOZA Moore/ ... Allergies Active Allergy Reactions Criticality Noted Date Comments Lactose Intolerance 01/29/2008 Nsaids Other (Please comment) 01/29/2008 Internal bleeding documented as of this encounter (statuses as of 01/11/2024) Medications MULTIVITAL-M PO TABS 4 Active Vitamin [...] MG Oral Tablet ChewableIndicat ions:Atheroscle rosis of [place] coronary artery of [place] heart without angina pectoris Take 1 Tablet by mouth in the morning. with food.. 100 Tablet 5 4 Active Additional Information Patient not taking.Reported on 01/10/2024 Atorvastatin Calcium 20 MG Oral Tablet (Lipitor)Indica tions:Atheroscl erosis of [place] coronary artery of [place] heart without angina pectoris Take 1 Tablet [...] as of this encounter (statuses as of 01/11/2024) Active Problems Problem Noted Date Diagnosed Date [...] as of this encounter (statuses as of 01/11/2024) Resolved Problems Problem Noted Date Diagnosed Date Resolved Date Prediabetes 03/22/2017 02/24/2018 Overview: Per Prediabetes protocol #1 Hearing loss 05/03/2012 02/13/2018 ADVANCE DIRECTIVE INFORMATION 01/25/2012 12/12/2023 Hemorrhoids, external without complications 01/29/2008 12/22/2016 documented as of this encounter (statuses as of 01/11/2024) Immunizations Name Administration Dates Next Due COVID-19 mRNA, LNP-s, No Pre serve, 2-Dose Series ([employer]) 05/22/2021,04/30/2020,04/04/2020 HEP A - Hepatitis A [...] encounter Miscellaneous Notes * Telephone Encounter - Melissa Walden OSA - 01/11/2024 1:38 PM EST PT- Roberto Moore Please triage for MRI Cardiac Thank you documented in this encounter Plan of Treatment Upcoming Encounters Date Type Department Care Team (Late st Contact Info) Description 03/19/2024 9:00 AM EST Office Visit Cardiology, [address] [place] [address] Krys Garcia CRNP 400 [facility] [place] [address] 08/03/2024 3:45 PM EDT Office Visit Dermatology [facility] 200 [facility] [place] [address] Darin Tolbert MD 200 [facility] [place] [address] 10/12/2024 9:00 AM EDT Imaging Radiology [facility] [address] [place] [address] Scheduled Procedures Name Priority Associated Diagnoses Date/Ti me COLONOSCOPY FLEXIBLE PROXIMAL DIAGNOSTIC Recall Crohn's disease (HCC) Health Maintenance Due Date Last Done Comments Adult Wellness Visit 06/06/2019 06/05/2018 COVID-19 Vaccine ( season) 2023 05/22/2021, 04/30/2020, 04/04/2020 Influenza Vaccine (FLU shot) (#1) 2023 10/21/2020, 11/08/2019, 10/23/2019, Additional history exists Depression Screening 12/16/2023 12/15/2022 GFR 01/09/2025 01/10/2024, 09/08, 05/09/2023, Additional history [...] this encounter Medical Devices Implanted Type Area Occasional Caregiver Device Identifier Shelf Expiration Date Model / Serial / Lot Lens Li61ao 13.00mm 21.00 - [id number] - [id number] Implanted:Qty: 1 on 12/21/2022 by Jose Mittal MD at OR [facility] Left: Eye [employer] LOMB 07/08/2027 [id number] / [id number] / [id number] Lens Li61ao 13.00mm 20.50 - [id number] - [id number] Implanted:Qty: 1 on 12/28/2022 by Jose Mittal MD at OR [facility] Right: Eye [employer]OMB 09/07/2027 [id number] / [id number] / [id number] documented as of this encounter Advance Directives [...] Power of Attor josh? No Care Teams Swing Frame Grinder Operator Relationship Specialty Start Date End Date Gabriela Rangel MD 200 [place] [address] PCP - General Internal Medicine 10/05/23 documented as of this encounter
--- OUTSIDE RECORDS SUMMARY | 2024-02-06 06:35 | External Medical Summary | Summary of Care ---
Author Name Unknown Organization [facility] Address [address] [place] [address] Phone [phone] Care Team Providers Care Workforce Planning Analyst Name Role Phone Gabriela Rangel MD Primary Care Provider [phone] Reason for Visit * Reason Onset Date Comments Appointment 01/16/2024 Encounter Details Date Type Department Care Team (Late st Contact Info) Description 01/16/2024 Telephone Radiology, [place] [address] [place], [place] [id number] Services, [facility] [address] [place] [address] Appointment Allergies Active Allergy Reactions Criticality Noted [...] MG Oral Tablet ChewableIndicat ions:Atheroscle rosis of [place] coronary artery of [place] heart without angina pectoris Take 1 Tablet [...] mRNA, LNP-s, No Pre serve, 2-Dose Series ([employer]) 05/22/2021,04/30/2020,04/04/2020 HEP A - Hepatitis A (Adult [...] encounter Miscellaneous Notes * Telephone Encounter - iBll Bah, BUDDY - 01/16/2024 2:01 PM EST Patient called to schedule his Cardiac MRI. I seen your triage notes, patient is scheduled on 01/25/24 and Labs were done on 01/10/24. documented in this encounter Plan of Treatment Upcoming Encounters Date Type Department Care Team (Late st Contact Info) Description 01/25/2024 9:30 AM EST Imaging Radiology [address] [place] [address] 03/19/2024 9:00 AM EST Office Visit Cardiology, [address] [place] [address] Krys Garcia CRNP 400 [facility] [place] [address] 08/03/2024 3:45 PM EDT Office Visit Dermatology [facility] 200 [facility] [place] [address] Darin Tolbert MD [address] [place] [address] 10/12/2024 9:00 AM EDT Imaging Radiology [address] [place] [address] Scheduled Procedures Name Priority Associated Diagnoses Date/Ti [...] this encounter Medical Devices Implanted Type Area Laser Set Up Operator Device Identifier Shelf Expiration Date Model / Serial / Lot Lens Li61ao 13.00mm 21.00 - [id number] - [id number] Implanted:Qty: 1 on 12/21/2022 by Jose Mittal MD at OR [facility] Left: Eye [employer]OMB 07/08/2027 [id number] / [id number] / [id number] Lens Li61ao 13.00mm 20.50 - [id number] - [id number] Implanted:Qty: 1 on 12/28/2022 by Jose Mittal MD at OR [facility] Right: Eye [employer]OMB 09/07/2027 [id number] / [id number] / [id number] documented as of this encounter Advance Directives [...] Power of Attor josh? No Care Teams Workforce Planning Analyst Relationship Specialty Start Date End Date Gabriela Rangel MD [address] [place] [address] PCP - General Internal Medicine 10/05/23 documented as of this encounter
--- OUTSIDE RECORDS SUMMARY | 2024-02-06 06:35 | External Medical Summary | Summary of Care ---
Author Name Unknown Organization [facility] Address [address] [place] [address] Phone [phone] Care Team Providers Care College Or University Business Manager Name Role Phone Gabriela Rangel MD Primary Care Provider [phone] Reason for Visit * Reason Onset Date Comments Medication Refill 01/25/2024 Encounter Details Date Type Department Care Team (Late st Contact Info) Description 01/25/2024 Refill General Internal Medicine [facility] 200 [place] [address] Gabriela Rangel MD [address] [place] [address] Atherosclerosis of [place] coronary artery of [place] heart without angina pectoris Allergies Active Allergy Reactions Criticality Noted Date [...] MG Oral Tablet ChewableIndica tions:Atherosc lerosis of [place] coronary artery of [place] heart without angina pectoris Take 1 Tablet by mouth in the morning. with food.. 100 Tablet 5 4 Active Additional Information Patient not taking.Reported on 01/10/2024 Furosemide 20 MG Oral Tablet (Lasix)Indicat ions:Nonrheuma [...] Active Atorvastatin Calcium 20 MG Oral Tablet (Lipitor)Indic ations:Atheros clerosis of [place] coronary artery of [place] heart without angina pectoris Take 1 Tablet by mouth in the morning. 90 Tablet 5 4 Active Atorvastatin Calcium 20 MG Oral Tablet (Lipitor)Indic ations:Atheros clerosis of [place] coronary artery of [place] heart without angina pectoris Take 1 Tablet by mouth in the morning. 30 Tablet 5 4 01/25/20 24 Discontin ued(Refil l) documented as of this encounter (statuses as [...] mRNA, LNP-s, No Pre serve, 2-Dose Series ([employer]) 05/22/2021,04/30/2020,04/04/2020 HEP A - Hepatitis A (Adult [...] encounter Miscellaneous Notes * Telephone Encounter - Gabriela Rangel MD - 01/25/2024 9:34 AM ESTSigned Prescriptions: Disp Refills Atorvastatin Calcium 20 MG Oral Tablet (Li*90 Tab*5 Sig: Take 1 Tablet by mouth in the morning. Authorizing Provider: GABRIELA RANGEL * Telephone Encounter - Sara Alvarado CMA - 01/25/2024 9:13 AM ESTPending Prescriptions: Disp Refills Atorvastatin Calcium 20 MG Oral Tablet (Li*90 Tab*5 Sig: Take 1 Tablet by mouth in the morning. * Telephone Encounter - Sara Alvarado CMA - 01/25/2024 9:12 AM EST Did you pend patient's preferred pharmacy and medication before forwarding?yes Pharmacy: [id number] [place] [address] Pending Prescriptions: Disp Refills Atorvastatin Calcium 20 MG Oral Tablet (L*90 Tab*5 Sig: Take 1 Tablet by mouth in the morning. Last Visit: 10/31/2023 (in office), Visit date not found (telemedicine) Next Visit: Visit date not found If no future appointments scheduled, and last appointment is greater than a year ago, please schedule patient for a follow-up appointment Last date the medication was ordered: 01/20/24 Is this request for a controlled substance?No [...] Encounter - Pau Enrique OSA - 01/25/2024 9:09 AM EST 90 day request * Telephone Encounter - Pau Enrique OSA - 01/25/2024 9:09 AM EST Did you pend patient's preferred pharmacy and medication before forwarding?yes Pharmacy: [id number] [facility] Pending Prescriptions: Disp Refills Atorvastatin Calcium 20 MG Oral Tablet (L*30 Tab*5 Sig: Take 1 Tablet by mouth in the morning. Last Visit: 10/31/2023 (in office), Visit date not found (telemedicine) Next Visit: Visit date not found If no future appointments scheduled, and last appointment is greater than a year ago, please schedule patient for a follow-up appointment Last date the medication was ordered: [id number] Is this request for a controlled substance?No [...] 03/19/2024 9:00 AM EST Office Visit Cardiology, [address] [place] [address] Krys Garcia CRNP [address] [place] [address] [place] [address] 08/03/2024 3:45 PM EDT Office [facility] [address] [place] [address] Darin Tolbert MD [address] [place] [address] 10/12/2024 9:00 AM EDT Imaging Radiology [facility] 1st [facility] 132 [facility] [place] [address] Scheduled Procedures Name Priority Associated Diagnoses Date/Ti [...] this encounter Medical Devices Implanted Type Area Descriptive Catalog Librarian Device Identifier Shelf Expiration Date Model / Serial / Lot Lens Li61ao 13.00mm 21.00 - [id number] - [id number] Implanted:Qty: 1 on 12/21/2022 by Jose Mittal MD at OR [facility] Left: Eye [employer]OMB 07/08/2027 [id number] / [id number] / [id number] Lens Li61ao 13.00mm 20.50 - [id number] - [id number] Implanted:Qty: 1 on 12/28/2022 by oJse Mittal MD at OR [facility] Right: Eye BA[employer]CH [employer] LOMB 09/07/2027 [id number] / [id number] / [id number] documented as of this encounter Visit Diagnoses Diagnosis Atherosclerosis of [place] coronary artery of [place] heart without angina pectoris documented in this encounter Advance Directives * [...] Power of Attor josh? No Care Teams College Or University Business Manager Relationship Specialty Start Date End Date Gabriela Rangel MD [address] [place] [address] PCP - General Internal Medicine 10/05/23 documented as of this encounter
--- OUTSIDE RECORDS SUMMARY | 2024-02-06 06:35 | External Medical Summary | Summary of Care ---
Author Name Unknown Organization [facility] Address [address] [place] [address] Phone [phone] Care Team Providers Care Household Chores Name Role Phone Gabriela Rangel MD Primary Care Provider [phone] Reason for Visit * Reason Comments Outpatient Testing Encounter Details Date Type Department Care Team (Late st Contact Info) Description 02/02/2024 11:30 AM EST Laboratory Laboratory [facility] [address] [place] [id number] [place], Lab Scenery [address] [place] [address] Nonrheumatic aortic valve insufficiency; Syncope, unspecified syncope type; Preoperative cardiovascular examination Allergies Active Allergy Reactions Criticality Noted Date Comments Lactose Intolerance 01/29/2008 Nsaids Other (Please comment) 01/29/2008 Internal bleeding documented as of this encounter (statuses as of 02/02/2024) Medications MULTIVITAL-M PO TABS 4 Active Vitamin [...] MG Oral Tablet ChewableIndicat ions:Atheroscle rosis of [place] coronary artery of [place] heart without angina pectoris Take 1 Tablet by mouth in the morning. with food.. 100 Tablet 5 4 Active Additional Information Patient not taking.Reported on 01/10/2024 Atorvastatin Calcium 20 MG Oral Tablet (Lipitor)Indica tions:Atheroscl erosis of [place] coronary artery of [place] heart without angina pectoris Take 1 Tablet [...] as of this encounter (statuses as of 02/02/2024) Active Problems Problem Noted Date Diagnosed Date [...] as of this encounter (statuses as of 02/02/2024) Resolved Problems Problem Noted Date Diagnosed Date Resolved Date Prediabetes 03/22/2017 02/24/2018 Overview: Per Prediabetes protocol #1 Hearing loss 05/03/2012 02/13/2018 ADVANCE DIRECTIVE INFORMATION 01/25/2012 12/12/2023 Hemorrhoids, external without complications 01/29/2008 12/22/2016 documented as of this encounter (statuses as of 02/02/2024) Immunizations Name Administration Dates Next Due COVID-19 mRNA, LNP-s, No Pre serve, 2-Dose Series ([email or web address]) 05/22/2021,04/30/2020,04/04/2020 HEP A - Hepatitis A (Adult [...] 03/19/2024 9:00 AM EST Office Visit Cardiology, [facility] [address] [place] [address] Krys Garcia CRNP 400 [facility] [place] [address] 08/03/2024 3:45 PM EDT Office Visit Dermatology [facility] 200 [facility] [place] [address] Darin Tolbert MD 200 [facility] [place] [address] 10/12/2024 9:00 AM EDT Imaging Radiology [facility] 1st [facility] [address] [place] [address] Pending Results Name Type Priority Associated Diagnoses Date /Time CBC Lab Routine Nonrheumatic aortic valve insufficiency Syncope, unspecified syncope type Preoperative cardiovascular examination 02/02/2024 11:30 AM EST BASIC METABOLIC PANEL Lab Routine Nonrheumatic aortic valve insufficiency Syncope, unspecified syncope type Preoperative cardiovascular examination 02/02/2024 11:30 AM EST PT INR Lab Routine Nonrheumatic aortic valve insufficiency Syncope, unspecified syncope type Preoperative cardiovascular examination 02/02/2024 11:30 AM EST APTT Lab Routine Nonrheumatic aortic valve insufficiency Syncope, unspecified syncope type Preoperative cardiovascular examination 02/02/2024 11:30 AM EST Scheduled Procedures Name Priority Associated Diagnoses Date/Ti [...] or Tdap) 07/26/2028 07/26/2018, 01/29/2008 Pneumococcal Vaccine: 50+ Years Completed 08/08/2017, 05/06/2014, 05/03/2012 Zoster Vaccines [...] this encounter Medical Devices Implanted Type Area Conference Producer Device Identifier Shelf Expiration Date Model / Serial / Lot Lens Li61ao 13.00mm 21.00 - [id number] - [id number] Implanted:Qty: 1 on 12/21/2022 by Jose Mittal MD at OR [facility] Left: Eye [employer]CH [employer] LOMB 07/08/2027 [id number] / [id number] / [id number] Lens Li61ao 13.00mm 20.50 - [id number] - [id number] Implanted:Qty: 1 on 12/28/2022 by Jose Mittal MD at OR [facility] Right: Eye [employer]CH [employer] LOMB 09/07/2027 [id number] / [id number] / [id number] documented as of this encounter Visit Diagnoses Diagnosis Nonrheumatic aortic valve insufficiency Aortic valve disorders Syncope, unspecified syncope type [...] Power of Attor josh? No Care Teams Household Chores Relationship Specialty Start Date End Date Gabriela Rangel MD [address] [place] [address] PCP - General Internal Medicine 10/05/23 documented as of this encounter
--- OUTSIDE RECORDS SUMMARY | 2024-02-06 06:35 | External Medical Summary ---
Author Name Unknown Address Unknown Organization K[facility] [place] [address] Laboratory Report Ordering Provider Test Date Status JOSEPH BENAVIDEZ 02/02/2024 11:30:16 Final Observation Date Value Abnormality Reference (Units ) Status BUN 02/02/2024 11:30:16 30 Above high normal 6-20 (mg/dL) Final Creatinine 02/02/2024 11:30:16 1.0 0.6-1.2 (mg/dL) Final Glomerular filtration rate/1.73 sq M.predicted [Volume Rate/Area] in Serum, Plasma or Blood by Creatinine-based formula (CKD-EPI) 02/02/2024 11:30:16 78 >=60 (mL/min) Final eGFR is calculated based on the CKD-EPI 2020 equation. Sodium 02/02/2024 11:30:16 142 135-146 (m mol/L) Final Potassium 02/02/2024 11:30:16 4.1 3.5-5.1 (m mol/L) Final Cl 02/02/2024 11:30:16 106 98-107 (mm ol/L) Final CO2 02/02/2024 11:30:16 26 22-32 (mmo l/L) Final Anion gap 02/02/2024 11:30:16 10 7-15 (mmol /L) Final Glucose 02/02/2024 11:30:16 97 70-120 (mg /dL) Final Calcium 02/02/2024 11:30:16 9.4 8.4-10.2 ( mg/dL) Final Performing Location [facility] [place] [address]
--- OUTSIDE RECORDS SUMMARY | 2024-02-06 06:35 | External Medical Summary | Summary of Care ---
Author Name Unknown Organization [facility] Address [address] [place] [address] Phone [phone] Care Team Providers Care Superintendent Oil Field Drilling Name Role Phone Gabriela Rangel MD Primary Care Provider [phone] Reason for Visit * Reason Onset Date Comments Medication Refill 01/20/2024 Encounter Details Date Type Department Care Team (Late st Contact Info) Description 01/20/2024 Refill General Internal Medicine [facility] 200 [facility] [place] [address] Gabriela Rangel MD [address] [place] [address] Atherosclerosis of [place] coronary artery of [place] heart without angina pectoris Allergies Active Allergy Reactions Criticality Noted Date Comments Lactose Intolerance 01/29/2008 Nsaids Other (Please comment) 01/29/2008 Internal bleeding documented as of this encounter (statuses as of 01/20/2024) Medications MULTIVITAL-M PO TABS 4 Active Vitamin [...] MG Oral Tablet ChewableIndica tions:Atherosc lerosis of [place] coronary artery of [place] heart without angina pectoris Take 1 Tablet [...] MG Oral Tablet (Lipitor)Indic ations:Atheros clerosis of [place] coronary artery of [place] heart without angina pectoris Take 1 Tablet by mouth in the morning. 30 Tablet 5 4 Active Atorvastatin Calcium 20 MG Oral Tablet (Lipitor)Indic ations:Atheros clerosis of [place] coronary artery of [place] heart without angina pectoris Take 1 Tablet by mouth in the morning. 30 Tablet 5 4 01/20/20 24 Discontin ued(Refil l) documented as of this encounter (statuses as of 01/20/2024) Active Problems Problem Noted Date Diagnosed Date [...] as of this encounter (statuses as of 01/20/2024) Resolved Problems Problem Noted Date Diagnosed Date Resolved Date Prediabetes 03/22/2017 02/24/2018 Overview: Per Prediabetes protocol #1 Hearing loss 05/03/2012 02/13/2018 ADVANCE DIRECTIVE INFORMATION 01/25/2012 12/12/2023 Hemorrhoids, external without complications 01/29/2008 12/22/2016 documented as of this encounter (statuses as of 01/20/2024) Immunizations Name Administration Dates Next Due COVID-19 mRNA, LNP-s, No Pre serve, 2-Dose Series (KienVe) 05/22/2021,04/30/2020,04/04/2020 HEP A - Hepatitis A (Adult [...] Telephone Encounter - Gabriela Rangel MD - 01/20/2024 4:15 PM ESTSigned Prescriptions: Disp Refills Atorvastatin Calcium 20 MG Oral Tablet (Li*30 Tab*5 Sig: Take 1 Tablet by mouth in the morning. Authorizing Provider: GABRIELA RANGEL * Telephone Encounter - Emory Amezcua CMA - 01/20/2024 3:05 PM ESTPending Prescriptions: Disp Refills Atorvastatin Calcium 20 MG Oral Tablet (Li*30 Tab*5 Sig: Take 1 Tablet by mouth in the morning. * Telephone Encounter - Pau Enrique OSA - 01/20/2024 1:12 PM EST 90 day request * Telephone Encounter - Pau Enrique OSA - 01/20/2024 1:11 PM EST Did you pend patient's preferred pharmacy and medication before forwarding?yes Pharmacy: [id number] [address] Pending Prescriptions: Disp Refills Atorvastatin Calcium 20 [...] appointment Last date the medication was ordered: [id number] Is this request for a controlled substance?No [...] Description 01/25/2024 9:30 AM EST Imaging Radiology [facility] 1st [facility] 132 [facility] [place] [address] 03/19/2024 9:00 AM EST Office Visit Cardiology, [address] [place] [address] Krys Garcia CRNP [address] [place] [address] [place] [address] 08/03/2024 3:45 PM EDT Office Visit [facility]at[facility] 200 [facility] [place] [address] Darin Tolbert MD [address] [place] [address] 10/12/2024 9:00 AM EDT Imaging Radiology [facility] 1st [facility] [address] [facility] [place] [address] Scheduled Procedures Name Priority Associated Diagnoses Date/Ti [...] this encounter Medical Devices Implanted Type Area Hand Assembler For Puller Over Device Identifier Shelf Expiration Date Model / Serial / Lot Lens Li61ao 13.00mm 21.00 - [id number] - [id number] Implanted:Qty: 1 on 12/21/2022 by Jose Mittal MD at OR [facility] Left: Eye [employer]OMB 07/08/2027 [id number] / [id number] / [id number] Lens Li61ao 13.00mm 20.50 - [id number] - [id number] Implanted:Qty: 1 on 12/28/2022 by Jose Mittal MD at OR [facility] Right: Eye BAUSCH [employer] LOMB 09/07/2027 [id number] / [id number] / [id number] documented as of this encounter Visit Diagnoses Diagnosis Atherosclerosis of [place] coronary artery of [place] heart without angina pectoris documented in this [...] Power of Attor josh? No Care Teams Superintendent Oil Field Drilling Relationship Specialty Start Date End Date Gabriela Rangel MD 200 [place] [address] PCP - General Internal Medicine 10/05/23 documented as of this encounter
--- OUTSIDE RECORDS SUMMARY | 2024-02-06 06:35 | External Medical Summary | Summary of Care ---
Author Name Unknown Organization [facility] Address [address] [place] [address] Phone [phone] Care Team Providers Care Boilermaking Supervisor Name Role Phone Gabriela Rangel MD Primary Care Provider [phone] Reason for Visit * Reason Onset Date Comments Nurse Documentation 01/13/2024 CMRI/Triaged Encounter Details Date Type Department Care Team (Late st Contact Info) Description 01/13/2024 Telephone Cardiac Studies [facility] [address] [place], [place] [id number] Miriam Townsend, RN Nurse Documentation (CMRI/Triaged) Allergies Active Allergy Reactions Criticality Noted Date Comments Lactose Intolerance 01/29/2008 Nsaids Other (Please comment) 01/29/2008 Internal bleeding documented as of this encounter (statuses as of 01/13/2024) Medications MULTIVITAL-M PO TABS 4 Active Vitamin [...] MG Oral Tablet ChewableIndicat ions:Atheroscle rosis of [place] coronary artery of [place] heart without angina pectoris Take 1 Tablet by mouth in the morning. with food.. 100 Tablet 5 4 Active Additional Information Patient not taking.Reported on 01/10/2024 Atorvastatin Calcium 20 MG Oral Tablet (Lipitor)Indica tions:Atheroscl erosis of [place] coronary artery of [place] heart without angina pectoris Take 1 Tablet [...] as of this encounter (statuses as of 01/13/2024) Active Problems Problem Noted Date Diagnosed Date [...] as of this encounter (statuses as of 01/13/2024) Resolved Problems Problem Noted Date Diagnosed Date Resolved Date Prediabetes 03/22/2017 02/24/2018 Overview: Per Prediabetes protocol #1 Hearing loss 05/03/2012 02/13/2018 ADVANCE DIRECTIVE INFORMATION 01/25/2012 12/12/2023 Hemorrhoids, external without complications 01/29/2008 12/22/2016 documented as of this encounter (statuses as of 01/13/2024) Immunizations Name Administration Dates Next Due COVID-19 mRNA, LNP-s, No Pre serve, 2-Dose Series ([employer]) 05/22/2021,04/30/2020,04/04/2020 HEP A - Hepatitis A (Adult [...] encounter Miscellaneous Notes * Telephone Encounter - Miriam Townsend RN - 01/13/2024 9:39 AM EST This patient has been triaged and cleared by the cardiac nurse to be scheduled for the CMRI. A message has been sent to the schedulers to please call the patient and they will need labs drawn within 30 days prior to the date of the CMRI. Miriam Townsend doctor of naprapathic medicine Imaging Nurse [phone] documented in this encounter Plan of Treatment Upcoming Encounters Date Type Department Care Team (Late st Contact Info) Description 03/19/2024 9:00 AM EST Office Visit Cardiology, [address] [place] [address] Krys Garcia CRNP [address] [place] [address] 08/03/2024 3:45 PM EDT Office Visit Dermatology [facility] 200 [facility] [place] [address] Darin Tolbert MD 200 [facility] [place] [address] 10/12/2024 9:00 AM EDT Imaging Radiology [facility] 1st [address] [place] [address] Scheduled Procedures Name Priority Associated Diagnoses Date/Ti [...] this encounter Medical Devices Implanted Type Area Correction Officer Device Identifier Shelf Expiration Date Model / Serial / Lot Lens Li61ao 13.00mm 21.00 - [id number] - [id number] Implanted:Qty: 1 on 12/21/2022 by Jose Mittal MD at OR [facility] Left: Eye [employer] LOMB 07/08/2027 [id number] / [id number] / [id number] Lens Li61ao 13.00mm 20.50 - [id number] - [id number] Implanted:Qty: 1 on 12/28/2022 by Jose Mittal MD at OR [facility] Right: Eye [employer]CH [employer] LOMB 09/07/2027 [id number] / [id number] / [id number] documented as of this encounter Advance Directives [...] Power of Attor josh? No Care Teams Boilermaking Supervisor Relationship Specialty Start Date End Date Gabriela Rangel MD [address] [place] [address] PCP - General Internal Medicine 10/05/23 documented as of this encounter
--- OUTSIDE RECORDS SUMMARY | 2024-02-06 06:36 | External Medical Summary | Summary of Care ---
Author Name Unknown Organization [facility] Address [address] [place] [address] Phone [phone] Care Team Providers Care Choker Hooker Name Role Phone Gabriela Rangel MD Primary Care Provider [phone] Reason for Visit * Reason Onset Date Comments Short of Breath 12/29/2023 Encounter Details Date Type Department Care Team (Late st Contact Info) Description 12/29/2023 Telephone General Internal Medicine [facility] 200 [place] [address] Gabriela Rangel MD [address] [place] [address] Short of Breath Allergies Active Allergy Reactions Criticality Noted Date Comments Lactose Intolerance 01/29/2008 Nsaids Other (Please comment) 01/29/2008 Internal bleeding documented as of this encounter (statuses as of 12/29/2023) Medications MULTIVITAL-M PO TABS 05/03/2013 Active Vitamin B Complex-C Oral Capsule Take 1 Capsule by mouth in the morning. 30 Capsule 04/28/2022 Active amLODIPine Besylate 2.5 MG Oral Tablet (Norvasc) Take 1 Tablet by mouth in the morning. Active Valsartan 320 MG Oral Tablet (Diovan)Indicat ions:HTN, goal below 140/90 Take 1 Tablet by mouth in the morning. 90 Tablet 1 09/29/2023 Active Fluticasone Propionate 50 MCG/ACT Nasal Suspension (Flonase) SPRAY 2 SPRAYS INTO EACH NOSTRIL EVERY DAY 48 mL 1 10/07/2023 Active Aspirin 81 MG Oral Tablet ChewableIndicat ions:Atheroscle rosis of [place] coronary artery of [place] heart without angina pectoris Take 1 Tablet by mouth in the morning. with food.. 100 Tablet 5 10/31/2023 Active Atorvastatin Calcium 20 MG Oral Tablet (Lipitor)Indica tions:Atheroscl erosis of [place] coronary artery of [place] heart without angina pectoris Take 1 Tablet by mouth in the morning. 30 Tablet 5 11/01/2023 Active documented as of this encounter (statuses as of 12/29/2023) Active Problems Problem Noted Date Diagnosed Date [...] as of this encounter (statuses as of 12/29/2023) Resolved Problems Problem Noted Date Diagnosed Date Resolved Date Prediabetes 03/22/2017 02/24/2018 Overview: Per Prediabetes protocol #1 Hearing loss 05/03/2012 02/13/2018 ADVANCE DIRECTIVE INFORMATION 01/25/2012 12/12/2023 Hemorrhoids, external without complications 01/29/2008 12/22/2016 documented as of this encounter (statuses as of 12/29/2023) Immunizations Name Administration Dates Next Due COVID-19 mRNA, LNP-s, No Pre serve, 2-Dose Series ([employer]) 05/22/2021,04/30/2020,04/04/2020 HEP A - Hepatitis A (Adult [...] encounter Miscellaneous Notes * Telephone Encounter - Kashif Mitchell RN - 12/29/2023 4:36 PM EST Pt in Echo dept. Noted irregular HB on auscultation Kashif Mitchell RN documented in this encounter Plan of Treatment Upcoming Encounters Date Type Department Care Team (Late st Contact Info) Description 08/03/2024 3:45 PM EDT Office Visit Dermatology [facility] 200 [facility] [place] [address] Darin Tolbert MD 200 [place] [address] 10/12/2024 9:00 AM EDT Imaging Radiology [facility] 1st [facility] [address] [facility] [place] [address] Scheduled Orders Name Type Priority Associated Diagnoses Orde r Schedule EKG COMPLETE (TRACING AND INTERP) EKG Routine VALDES (dyspnea on exertion) Ordered: 12/29/2023 Scheduled Procedures Name Priority Associated Diagnoses Date/Ti me COLONOSCOPY FLEXIBLE PROXIMAL DIAGNOSTIC Recall Crohn's disease (HCC) Health Maintenance Due Date Last Done Comments Adult Wellness Visit 06/06/2019 06/05/2018 COVID-19 Vaccine ( season) 2023 05/22/2021, 04/30/2020, 04/04/2020 Influenza Vaccine (FLU shot) (#1) 2023 10/21/2020, 11/08/2019, 10/23/2019, Additional history exists Depression Screening 12/16/2023 12/15/2022 GFR 10/02/2024 10/03/2023, 04/0 02/2023, 04/20/2022, Additional history exists Albumin/Creatinine Ratio 04/20/2025 04/20/2022 Colonoscopy 06/05/2026 06/06/2023, 042 10/2023, 04/11/2019, Additional history exists DTap/Tdap Vaccines (3 [...] this encounter Medical Devices Implanted Type Area Risk Control Consultant Device Identifier Shelf Expiration Date Model / Serial / Lot Lens Li61ao 13.00mm 21.00 - [id number] - [id number] Implanted:Qty: 1 on 12/21/2022 by Jose Mittal MD at OR [facility] Left: Eye BAUSCH [employer] LOMB 07/08/2027 [id number] / [id number] / [id number] Lens Li61ao 13.00mm 20.50 - [id number] - [id number] Implanted:Qty: 1 on 12/28/2022 by Jose Mittal MD at OR [facility] Right: Eye BAUSCH & LOMB 09/07/2027 [id number] / [id number] / [id number] documented as of this encounter Visit Diagnoses Diagnosis VALDES (dyspnea on exertion)- Primary Other dyspnea and respiratory abnormality documented in this encounter Advance Directives * [...] Power of Attor josh? No Care Teams Choker Hooker Relationship Specialty Start Date End Date Gabriela Rangel MD 200 [place] [address] PCP - General Internal Medicine 10/05/23 documented as of this encounter
--- OUTSIDE RECORDS SUMMARY | 2024-02-06 06:36 | External Medical Summary ---
Author Name Unknown Address Unknown Organization K01:[facility] - [facility] [address] [facility] [place] [address] Laboratory Report Ordering Provider Test Date Status FRANCESCO HIGGINS 01/10/2024 10:37:55 Final Observation Date Value Abnormality Reference (Units ) Status MYCODE SPECIMEN-SST 01/10/2024 10:37:55 Freezing of extracted DNA, whole blood and/or serum. Final Performing Location [facility] - [address] [place] [address]
--- OUTSIDE RECORDS SUMMARY | 2024-02-06 06:36 | External Medical Summary ---
Author Name Unknown Address Unknown Organization K09:[facility] [address] [place] [address] Laboratory Report Ordering Provider Test Date Status BRIAN RAYMOND 01/10/2024 10:37:55 Final Observation Date Value Abnormality Reference (Units ) Status BUN 01/10/2024 10:37:55 30 Above high normal 6-20 (mg/dL) Final Creatinine 01/10/2024 10:37:55 1.2 0.6-1.2 (mg/dL) Final Glomerular filtration rate/1.73 sq M.predicted [Volume Rate/Area] in Serum, Plasma or Blood by Creatinine-based formula (CKD-EPI) 01/10/2024 10:37:55 65 >=60 (mL/min) Final eGFR is calculated based on the CKD-EPI 2020 equation. Sodium 01/10/2024 10:37:55 142 135-146 (m mol/L) Final Potassium 01/10/2024 10:37:55 4.1 3.5-5.1 (m mol/L) Final Cl 01/10/2024 10:37:55 104 98-107 (mm ol/L) Final CO2 01/10/2024 10:37:55 26 22-32 (mmo l/L) Final Anion gap 01/10/2024 10:37:55 12 7-15 (mmol /L) Final Glucose 01/10/2024 10:37:55 95 70-120 (mg /dL) Final Albumin 01/10/2024 10:37:55 4.4 3.8-5.0 (g /dL) Final AST (Aspartate aminotransferase) 01/10/2024 10:37:55 34 10-50 (U/L) Final Alk Phos 01/10/2024 10:37:55 127 35-130 (U/ L) Final Bilirubin, Total 01/10/2024 10:37:55 0.8 <=1 .2 (mg/dL) Final Calcium 01/10/2024 10:37:55 9.7 8.4-10.2 ( mg/dL) Final Protein 01/10/2024 10:37:55 7.2 6.0-8.3 (g /dL) Final ALT (Alanine aminotransferase) 01/10/2024 10:37:55 36 10-50 (U/L) Final Performing Location [facility] [place] [address]
--- OUTSIDE RECORDS SUMMARY | 2024-02-06 06:36 | External Medical Summary | Summary of Care ---
Author Name Unknown Organization [facility] Address [address] [place] [address] Phone [phone] Care Team Providers Care Cop Name Role Phone Gabriela Rangel MD Primary Care Provider [phone] Reason for Visit * Reason Onset Date Comments MyCode Consent 10/31/2023 Encounter Details Date Type Department Care Team (Late st Contact Info) Description 10/31/2023 Orders Only Outcomes Research Department [address] [place], [place] [id number] Thomas Pickens CHRA MyCode Research Other*[id number]* Allergies Active Allergy Reactions Criticality Noted Date Comments Salicylates Other (Please comment) 05/12/2010 Internal bleeding Lactose Intolerance 01/29/2008 Nsaids Other (Please comment) 01/29/2008 Internal bleeding documented as of this encounter (statuses as of 10/31/2023) Medications Medication Sig Dispensed Refills Start Date End Date Status MULTIVITAL-M PO TABS 05/03/2013 Acti ve Vitamin B Complex-C Oral Capsule Take 1 Capsule by mouth in the morning. 30 Capsule 04/28/2022 Active amLODIPine Besylate 2.5 MG Oral Tablet (Norvasc) Take 1 Tablet by mouth in the morning. Active Valsartan 320 MG Oral Tablet (Diovan)Indications: HTN, goal below 140/90 Take 1 Tablet by mouth in the morning. 90 Tablet 1 09/29/2023 Active Fluticasone Propionate 50 MCG/ACT Nasal Suspension (Flonase) SPRAY 2 SPRAYS INTO EACH NOSTRIL EVERY DAY 48 mL 1 10/07/2023 Active Atorvastatin Calcium 20 MG Oral Tablet (Lipitor)Indications :Atherosclerosis of [place] coronary artery of [place] heart without angina pectoris Take 1 Tablet by mouth in the morning. 30 Tablet 5 10/27/2023 Active documented as of this encounter (statuses as of 10/31/2023) Active Problems Problem Noted Date Diagnosed Date Crohn's disease of large intestine without compl ication 05/09/2023 Hx of actinic keratosis 09/06/2019 Crohn's disease, unspecified, without complicati ons 12/22/2016 History of basal cell carcinoma 07/16/2013 Overview: Back 2010 HTN, goal below 140/90 05/03/2012 ADVANCE DIRECTIVE INFORMATION 01/25/2012 Hx of melanoma of skin 05/31/2011 Overview: MM date 1997, Depth 3.38mm, Location left posterior arm SLN negative BMI 32.0-32.9,adult 07/21/2009 Overview: Per Obesity Protocol, #19 documented as of this encounter (statuses as of 10/31/2023) Resolved Problems Problem Noted Date Diagnosed Date Resolved Date Prediabetes 03/22/2017 02/24/2018 Overview: Per Prediabetes protocol #1 Hearing loss 05/03/2012 02/13/2018 Hemorrhoids, external without complications 01/29/2008 12/22/2016 documented as of this encounter (statuses as of 10/31/2023) Immunizations Name Administration Dates Next Due COVID-19 mRNA, LNP-s, No Pre serve, 2-Dose Series ([employer]) 05/22/2021,04/30/2020,04/04/2020 HEP A - Hepatitis A (Adult > 18 yrs) 02/22/2017 Pneumococcal Conjugate Vacc, 13 Valent (Prevnar) 05/06/2014 Pneumococcal Polysaccharide PPV23 (Pneumovax) 08/08/2017,05/03/2012 Season Influenza, Quad, PF, Adjuvanted, 65+ Yrs, IM (FLUAD) 10/23/2019 Seasonal Influenza Virus Vac cine, Unspecified Formulation 11/08/2019,10/29/2018 Seasonal Influenza, High Dos e, Trivalent, PF, IM (Fluzone HD) 12/12/2018 Seasonal Influenza, PF, 6 M & above, IM , (FluLaval or Fluzone) 10/21/2020,02/13/2018,12/22/2016 Seasonal Influenza, Quadriva lent, No Preserve, IM 11/13/2015,11/07/2014 Seasonal Influenza, Trivalen t, (IIV3), with Preserv, (Fluzone) 11/05/2013,11/03/2012,05/03/2012,11/21,11/08/2007 TDAP (age 10 and older)(Boostrix) 07/26/2018 TDAP, [...] y our heating, water, or electric bill? No 12/06/2022 Is your family able to pay t he heat, water, or electric bill? (Household - for ages 0-17 years) Not on file 12/06/2022 Does your family have access to good internet? (Household - for ages 0-17 years) Not on file 12/06/2022 Employment Status Answer Date Recorded Are you unemployed or without regular income? No 12/06/2022 Does the household have a re gular source of income? (Household - for ages 0-17 years) Not on file 12/06/2022 Social Connections Answer Date Recorded How often do you feel lonely or isolated from th ose around you? Never 12/06/2022 Financial Resource Strain Answer Date R ecorded [...] Assigned at Male 06/05/2018 9:11 AM EDT Gender Identity Male 06/05/2018 9:11 AM EDT Sexual Orientation Straight 06/05/2018 9: 11 AM EDT Job Start Date Occupation Industry Not on file Not on file Not on file documented as of this encounter Progress Notes * Thomas Pickens CHRA - 10/31/2023 12:05 PM EDT MyCode Consent Documentation Roberto Moore provided consent/authorization to participate in the [employer]. documented in this encounter Plan of Treatment Upcoming Encounters Date Type Department Care Team (Late st Contact Info) Description 08/03/2024 3:45 PM EDT Office Visit Dermatology [facility] [place] [address] [place] [address] Darin Tolbert MD [address] [place] [address] 10/12/2024 9:00 AM EDT Imaging Radiology [address] 132 [facility] [place] [address] Scheduled Orders Name Type Priority Associated Diagnoses Orde r Schedule MYCODE INITIAL ADULT Lab Routine MyCode Research Other*[id number] Expected: 10/31/2023 (Approximate), Expires: 11/19/2024 Scheduled Procedures Name Priority Associated Diagnoses Date/Ti me COLONOSCOPY FLEXIBLE PROXIMAL DIAGNOSTIC Recall Crohn's disease (HCC) Health Maintenance Due Date Last Done Comments Adult Wellness Visit 06/06/2019 06/05/2018 Influenza Vaccine (FLU shot) (#1) 2023 10/21/2020, 11/08/2019, 10/23/2019, Additional history exists COVID-19 Vaccine ( season) 2023 05/22/2021, 04/30/2020, 04/04/2020 Postponed from 10/09/2023 (Unavailable) Depression Screening 12/16/2023 12/15/2022 GFR 10/02/2024 10/03/2023, 04/0 02/2023, 04/20/2022, Additional history exists Albumin/Creatinine Ratio 04/20/2025 04/20/2022 Colonoscopy 06/05/2026 06/06/2023, 04/2 10/2023, 04/11/2019, Additional history exists DTap/Tdap Vaccines (3 - Td or Tdap) 07/26/2028 07/26/2018, 01/29/2008 Pneumococcal Vaccine: 65+ Years Completed 08/08/2017, 05/06/2014, 05/03/2012 Zoster Vaccines Completed 10/21/2020, /3 , 11/03/2012 HPV (Gardasil) Vaccine Aged Out No lo nger eligible based on patient's age to complete this topic Hepatitis B Vaccine Aged Out No longe r eligible based on patient's age to complete this topic MENINGOCOCCAL (MENACTRA/MENVEO) Aged Out No longer eligible based on patient's age to complete this topic documented as of this encounter Medical Devices Implanted Type Area Back Grinder Device Identifier Shelf Expiration Date Model / Serial / Lot Lens Li61ao 13.00mm 21.00 - [id number] - [id number] Implanted:Qty: 1 on 12/21/2022 by Jose Mittal MD at OR [facility] Left: Eye [employer]CH [employer] LOMB 07/08/2027 [id number] / [id number] / [id number] Lens Li61ao 13.00mm 20.50 - [id number] - [id number] Implanted:Qty: 1 on 12/28/2022 by Jose Mittal MD at OR [facility] Right: Eye [employer]USCH [employer] LOMB 09/07/2027 [id number] / [id number] / [id number] documented as of this encounter Visit Diagnoses Diagnosis MyCode Research Other*[id number]- Primary documented in this encounter Advance Directives * [...] Power of Attor josh? No Care Teams Cop Relationship Specialty Start Date End Date Gabriela Rangel MD [address] [facility] [place] [address] PCP - General Internal Medicine 10/05/23 documented as of this encounter
--- OUTSIDE RECORDS SUMMARY | 2024-02-06 06:36 | External Medical Summary ---
Author Name Unknown Address Unknown Organization [id number]:[place] [facility] [place] [facility] [address] [facility] [place] [address] Laboratory Report Ordering Provider Test Date Status BRIAN RAYMOND 01/10/2024 10:37:55 Final Exclude Heart Failure: <300 pg/mL
Diagnose Heart Failure:
Age <50 yr: >450 pg/mL
50-75 yr: >900 pg/mL
>75 yr: >1800 pg/mL
GFR is 30-59 mL/min: >1200 pg/mL or Age- adjusted values
GFR <30 mL/min: do not use, not reliable

Prognostic threshold: 1000 pg/mL Observation Date Value Abnormality Reference (Units ) Status BNP, Pro-hormone 01/10/2024 10:37:55 371 Above high no rmal <300 (pg/mL) Final Performing Location [place] [facility] [place] [facility] [address] [place] [address]
--- OUTSIDE RECORDS SUMMARY | 2024-02-06 06:36 | External Medical Summary ---
Author Name Unknown Address Unknown Organization [id number]:LABORATORY [facility] [place] - [address] [facility] [address] Laboratory Report Ordering Provider Test Date Status BRIAN RAYMOND 10/31/2023 13:43:44 Final Observation Date Value Abnormality Reference (Units ) Status SARS Coronavirus 2 10/31/2023 13:43:44 Negative N egative Final No SARS-CoV2 Coronavirus RNA detected by PCR (amplified probe).
This express test was developed and its performance characteristics determined by [facility]. It has not been cleared or approved by the U.S. Food and Drug Administration (FDA). FDA does not require this test to go thru premarket FDA review. This test is used for clinical purposes. It should not be regarded as investigational or for research. This laboratory is certified under the Clinical Laboratory Improvement Amendments (CLIA) as qualified to perform high complexity clinical laboratory testing.

This test is a nucleic acid amplification test (NAAT), a reverse transcriptase polymerase chain reaction (RT-PCR) test, or a Centers for Disease Control-acceptable equivalent. The test is performed in a high complexity Clinical Laboratory Improvement Amendments-(CLIA) certified laboratory. The test is acceptable for SARS-CoV-2 diagnosis, surveillance, and travel within the [place] and to most countries. Please check with local testing authorities about requirements before travel.

The validation of bronchial specimens, tracheal aspirates, and sputum for this assay was developed and performance characteristics determined by [facility]. The validation of alternate specimen types has not been cleared or approved by the U.S. Food and Drug Administration (FDA). It has been determined that such clearance is not necessary. Influenza virus A RNA [Prese nce] in Specimen by L[facility]HA[facility] with probe detection 10/31/2023 13:43:44 Negative Negative Final No Influenza A RNA detected by PCR (amplified probe) Influenza virus B RNA [Prese nce] in Specimen by LASHAUN with probe detection 10/31/2023 13:43:44 Negative Negative Final No Influenza B RNA detected by PCR (amplified probe) Respiratory syncytial virus RNA [Identifier] in Specimen by LASHAUN with probe detection 10/31/2023 13:43:44 Negative Negative Final No Respiratory Syncytial Vir us RNA detected by PCR (amplified probe) Performing Location [address]ATORY [address] [facility] [address]
--- OUTSIDE RECORDS SUMMARY | 2024-02-06 06:36 | External Medical Summary | Summary of Care ---
Author Name Unknown Organization [facility] Address [address] [place] [address] Phone [phone] Care Team Providers Care Telesales Supervisor Name Role Phone Gabriela Rangel MD Primary Care Provider [phone] Reason for Referral * Precert (Diagnostic Medical) (Within 10 days (routine)) - Authorized Specialty Diagnoses / Procedures Referred By Contac t Referred To Contact Cardiac Studies Diagnoses VALDES (dyspnea on exertion) Procedures ECHO, COMPLETE (2D), TRANS-THORACIC Gabriela Rangel MD [address] [facility] [place] [address] Referral ID Status Reason Start Date Expiration Date V isits Requested Visits Authorized [id number] Authorized Precert 10/31/2023 999 999 Reason for Visit * Reason Comments Follow Up Encounter Details Date Type Department Care Team (Late st Contact Info) Description 10/31/2023 11:40 AM EDT Office Visit General Internal Medicine [facility] [place] [address] [place], [place] [address] Gabriela Rangel MD [address] [facility] [place] [address] VALDES (dyspnea on exertion)*; Upper respiratory tract infection, unspecified type; HTN, goal below 140/90; History of basal cell carcinoma; Crohn's disease of large intestine without complication (HCC); Atherosclerosis of [place] coronary artery of [place] heart without angina pectoris Allergies Active Allergy [...] 20 MG Oral Tablet (Lipitor)Indications :Atherosclerosis of [place] coronary artery of [place] heart without angina pectoris Take 1 Tablet by mouth in the morning. 30 Tablet 5 10/27/2023 Active Aspirin 81 MG Oral Tablet ChewableIndications: Atherosclerosis of [place] coronary artery of [place] heart without angina pectoris Take 1 Tablet by mouth in the morning. with food.. 100 Tablet 5 10/31/2023 Active documented as of this encounter (statuses [...] mRNA, LNP-s, No Pre serve, 2-Dose Series (Lagiar) 05/22/2021,04/30/2020,04/04/2020 HEP A - Hepatitis A (Adult [...] Tobacco: Some Days Cigars Smokeless Tobacco: Never Tobacco Cessation:Ready to Q uit: No; Counseling Given: No Comments:cigar 3-4 times per week Alcohol Use [...] on file documented as of this encounter Last Filed Vital Signs Vital Sign Reading Time Taken Comments Blood Pressure 156/88 10/31/2023 12:03 PM EDT Pulse 88 10/31/2023 12:03 PM EDT Temperature 36.7 C (98 F) 10/31/2023 12: 03 PM EDT Respiratory Rate 16 10/31/2023 12:0 3 PM EDT Oxygen Saturation 95% 10/31/2023 12: 03 PM EDT Inhaled Oxygen Concentration - - Weight 106.9 kg (235 lb 11.2 oz) 2023 12:03 PM EDT Height 177.8 cm (5' 10") 10/31/2023 12: 03 PM EDT Body Mass Index 33.82 10/31/2023 12:03 PM EDT documented in this encounter Progress Notes * Gabriela Rangel MD - 10/31/2023 12:15 PM EDT Images from the original note were not included. History of Present Illness Roberto Moore is a 73 year old male that presents for Follow Up 73 year oldYOmale with PMH significant for hypertension, hyperlipidemia, ectasia thoracic aorta presents here for recheck. Acute concern :- -some cold and congestion for last 3 days. No body aches, fever chills or shortness of breath more than usual. Has not had COVID booster and flu shot. Has been taking some DayQuil/NyQuil and ibuprofen until last night -patient continues to have short of breath with exertion especially walking up hill. No chest pain or palpitation. CT chest did show some pulmonary nodule and ectasia of thoracic aorta but no blood clots and nothing to explain the symptoms. Never had echocardiogram done Interimmedical history : As above. Blood pressure was overall better and leg swelling went away with medication change except today the blood pressure is a bit high. No more dizziness and happy Watching diet and exercise : Usually yes but can watch more diet and regular walks. Does play golf Routine labs : Due in December Routine HM : Agreeable to catch up except COVID booster Chronic medical problem: reviewed and stable Physical Exam Vitals: 10/31/23 1203 Temp: 36.7 C (98 F) Pulse: 88 Resp: 16 SpO2: 95% BP: 156/88 BMI: 33.82 Physical Exam Constitutional: General: He is not in acute distress. Appearance: Normal appearance. HENT: Head: Normocephalic. Right Ear: Ear canal and external ear normal. Left Ear: Ear canal and external ear normal. Nose: Congestion and rhinorrhea present. Mouth/Throat: Mouth: Mucous membranes are moist. Pharynx: Posterior oropharyngeal erythema present. No oropharyngeal exudate. Cardiovascular: Rate and Rhythm: Normal rate and regular rhythm. Heart sounds: No murmur heard. No gallop. Pulmonary: Effort: Pulmonary effort is normal. Breath sounds: No stridor. No wheezing or rhonchi. Chest: Chest wall: No tenderness. Abdominal: General: There is no distension. Palpations: Abdomen is soft. There is no mass. Tenderness: There is no abdominal tenderness. Musculoskeletal: General: No swelling or tenderness. Cervical back: No rigidity or tenderness. Right lower leg: No edema. Left lower leg: No edema. Lymphadenopathy: Cervical: No cervical adenopathy. Neurological: Mental Status: He is alert. I have reviewed the following results: Assessment and Plan VALDES (dyspnea on exertion) If echocardiogram is unremarkable suggest to get dobutamine stress echo and PFT - ECHO, COMPLETE (2D), TRANS-THORACIC; Future Upper respiratory tract infection, unspecified type Natural course of viral infection discussed Conservative measures like rest, fluid, humidifier in room Saline nasal drop 2-3 times a day OTC decongestant for congestion- only as needed otherwise none Tylenol every 6 hours for fever - INFLUENZA A/B RSV SARS-COV2,PCR; Future - INFLUENZA A/B RSV SARS-COV2,PCR HTN, goal below 140/90 Continue same medications as high blood pressure is likely from OTC cough medicine and ibuprofen Nurse check in 2 weeks and if it is still high will add hydrochlorothiazide 12.5 mg History of basal cell carcinoma Crohn's disease of large intestine without complication (HCC) In remission Atherosclerosis of [place] coronary artery of [place] heart without angina pectoris Continue Lipitor and tolerating well - Aspirin 81 MG Oral Tablet Chewable; Take 1 Tablet by mouth in the morning. with food.. Wrap-Up Time: I spent a total of 30-39 minutes (exact time 35 mins) on the date of service in preparation, delivery, and documentation of the care provided to Roberto Moore excluding any time spent in the performance of separately billed services. documented in this encounter Nursing Notes * Jasmyne Mcguire, MED ASSIST - 10/31/2023 12:03 PM EDT Roberto Moore presents for 1 month recheck. He has been checking his blood pressures at home and they have been elevated. He declines his flu vaccine today. Medications & HM reviewed. documented in this encounter Plan of Treatment Upcoming Encounters Date Type Department Care Team (Late st Contact Info) Description 08/03/2024 3:45 PM EDT Office Visit Dermatology [facility] [address] [facility] [place] [address] Darin Tolbert MD [address] [place] [address] 10/12/2024 9:00 AM EDT Imaging Radiology [facility] [facility] [address] [facility] [place] [id number] Pending Results Name Type Priority Associated Diagnoses Date /Time INFLUENZA A/B RSV SARS-COV2,PCR Lab Routine Upper respiratory tract infection, unspecified type 10/31/2023 1:43 PM EDT Scheduled Orders Name Type Priority Associated Diagnoses Orde r Schedule ECHO, COMPLETE (2D), TRANS-THORACIC Echocardiology Routine VALDES (dyspnea on exertion) Expected: 10/31/2023, Expires: 11/29/2025 INFLUENZA A/B RSV SARS-COV2,PCR Lab Routine Upper respiratory tract infection, unspecified type Expected: 10/31/2023 (Approximate), Expires: 10/30/2024 Scheduled Procedures Name Priority Associated Diagnoses Date/Ti [...] this encounter Medical Devices Implanted Type Area Online Services Manager Device Identifier Shelf Expiration Date Model / Serial / Lot Lens Li61ao 13.00mm 21.00 - [id number] - [id number] Implanted:Qty: 1 on 12/21/2022 by Jose Mittal MD at OR [facility] Left: Eye [employer] 07/08/2027 [id number] / [id number] / [id number] Lens Li61ao 13.00mm 20.50 - [id number] - [id number] Implanted:Qty: 1 on 12/28/2022 by Jose Mittal MD at OR [facility] Right: Eye [employer]OM[employer] 09/07/2027 [id number] / [id number] / [id number] documented as of this encounter Visit Diagnoses Diagnosis VALDES (dyspnea on exertion)- Primary Other dyspnea and respiratory abnormality Upper respiratory tract infection, unspecified type HTN, goal below 140/90 Unspecified essential hypertension History of basal cell carcinoma Personal history of other malignant neoplasm of skin Crohn's disease of large intestine without complication (HCC) Regional enteritis of large intestine Atherosclerosis of [place] coronary artery of [place] heart without angina pectoris documented in this [...] Power of Attor josh? No Care Teams Telesales Supervisor Relationship Specialty Start Date End Date Gabriela Rangel MD [address] [place] [id number] PCP - General Internal Medicine 10/05/23 documented as of this encounter
--- OUTSIDE RECORDS SUMMARY | 2024-02-06 06:36 | External Medical Summary ---
Author Name Unknown Address Unknown Organization K01:LABORATORY [facility] [place] - [address] [place] [address] Laboratory Report Ordering Provider Test Date Status BRIAN RAYMOND 01/10/2024 10:37:55 Final Observation Date Value Abnormality Reference (Units ) Status LDL, (direct) 01/10/2024 10:37:55 57 <=129 (mg/dL) Final LDL Cholesterol Reference Ra nges (mg/dL):
<70 Target level for high risk ASCVD patient
<100 Optimal for general population
100-129 Near optimal for general population
130-159 Borderline high
160-189 High
>=190 Very high Performing Location LABORATORY [facility] - [address] [place] [address]
--- OUTSIDE RECORDS SUMMARY | 2024-02-06 06:36 | External Medical Summary ---
Author Name Unknown Address Unknown Organization K01:LABORATORY [facility] [place] - [address] [place] [address] Laboratory Report Ordering Provider Test Date Status FRANCESCO HIGGINS 01/10/2024 10:37:55 Final Observation Date Value Abnormality Reference (Units ) Status JOSÉ MIGUEL SPECIMEN-LAV 01/10/2024 10:37:55 Freezing of extracted DNA, whole blood and/or serum. Final Performing Location LABORATORY [facility] [place] - [address] [place] [address]
--- OUTSIDE RECORDS SUMMARY | 2024-02-06 06:36 | External Medical Summary | Summary of Care ---
Author Name Unknown Organization [facility] Address [address] [place] [address] Phone [phone] Care Team Providers Care Solution Make Up Operator Name Role Phone Gabriela Rangel MD Primary Care Provider [phone] Reason for Visit * Reason Onset Date Comments Medication Refill 11/01/2023 Encounter Details Date Type Department Care Team (Late st Contact Info) Description 11/01/2023 Refill General Internal Medicine [facility] [address] [place] [address] Gabriela Rangel MD [address] [place] [address] Atherosclerosis of [place] coronary artery of [place] heart without angina pectoris Allergies Active Allergy Reactions Criticality Noted Date Comments Lactose Intolerance 01/29/2008 Nsaids Other (Please comment) 01/29/2008 Internal bleeding documented as of this encounter (statuses as of 11/01/2023) Medications Medication Sig Dispensed Refills Start Date End Date Status MULTIVITAL-M PO TABS 05/03/2013 Active Vitamin B Complex-C Oral Capsule Take 1 Capsule by mouth in the morning. 30 Capsule 04/28/2022 Active amLODIPine Besylate 2.5 MG Oral Tablet (Norvasc) Take 1 Tablet by mouth in the morning. Active Valsartan 320 MG Oral Tablet (Diovan)Indicatio ns:HTN, goal below 140/90 Take 1 Tablet by mouth in the morning. 90 Tablet 1 09/29/2023 Active Fluticasone Propionate 50 MCG/ACT Nasal Suspension (Flonase) SPRAY 2 SPRAYS INTO EACH NOSTRIL EVERY DAY 48 mL 1 10/07/2023 Active Aspirin 81 MG Oral Tablet ChewableIndicatio ns:Atherosclerosi s of [place] coronary artery of [place] heart without angina pectoris Take 1 Tablet by mouth in the morning. with food.. 100 Tablet 5 10/31/2023 Active Atorvastatin Calcium 20 MG Oral Tablet (Lipitor)Indicati ons:Atheroscleros is of [place] coronary artery of [place] heart without angina pectoris Take 1 Tablet by mouth in the morning. 30 Tablet 5 11/01/2023 Active Atorvastatin Calcium 20 MG Oral Tablet (Lipitor)Indicati ons:Atheroscleros is of [place] coronary artery of [place] heart without angina pectoris Take 1 Tablet by mouth in the morning. 30 Tablet 5 10/27/2023 11/01/2023 Discontinued (Refill) documented as of this encounter (statuses as of 11/01/2023) Active Problems Problem Noted Date Diagnosed Date [...] as of this encounter (statuses as of 11/01/2023) Resolved Problems Problem Noted Date Diagnosed Date Resolved Date Prediabetes 03/22/2017 02/24/2018 Overview: Per Prediabetes protocol #1 Hearing loss 05/03/2012 02/13/2018 Hemorrhoids, external without complications 01/29/2008 12/22/2016 documented as of this encounter (statuses as of 11/01/2023) Immunizations Name Administration Dates Next Due COVID-19 mRNA, LNP-s, No Pre serve, 2-Dose Series ([employer]) 05/22/2021,04/30/2020,04/04/2020 HEP A - Hepatitis A (Adult [...] No 12/06/2022 Does the household have a [facility] source of income? (Household - for ages [...] Telephone Encounter - Gabriela Rangel MD - 11/01/2023 2:07 PM EDTSigned Prescriptions: Disp Refills Atorvastatin Calcium 20 MG Oral Tablet (Li*30 Tab*5 Sig: Take 1 Tablet by mouth in the morning. Authorizing Provider: GABRIELA RANGEL * Telephone Encounter - Demi Yao, [employer] - 11/01/2023 1:57 PM EDT Pending Prescriptions: Disp Refills Atorvastatin Calcium 20 MG Oral Tablet (Li*30 Tab*5 Sig: Take 1 Tablet by mouth in the morning. * Telephone Encounter - Demi Yao [employer] - 11/01/2023 1:55 PM EDT Did you pend patient's preferred pharmacy and medication before forwarding?yes Pharmacy: [id number] [address] [place] [address] Pending Prescriptions: Disp Refills Atorvastatin Calcium 20 [...] appointment Last date the medication was ordered: 10/27/23 Is this request for a controlled substance?No Urine Drug Screen:No results found for this or any previous visit. Patient Phone Numbers Labs: Lab Results Component Value Date/Time CREAT 1.0 10/03/2023 10:27 AM CREAT 1.2 03/09/2019 09:35 AM POTASSIUM 4.2 10/03/2023 10:27 AM POTASSIUM 4.2 03/09/2019 09:35 AM LDL 74 05/09/2023 09:22 AM LDL 79 03/09/2019 09:35 AM LDL NOT APPLICABLE 03/09/2019 09:35 AM ALT 29 05/09/2023 09:22 AM ALT 31 03/09/2019 09:35 AM HGBA1C 5.5 06/09/2023 09:45 AM HGBA1C 5.5 02/13/2018 09:49 AM * Telephone Encounter - Cindy Rangel OSA - 11/01/2023 10:35 AM EDT Did you pend patient's preferred pharmacy and medication before forwarding?yes Pharmacy: [id number] [address] [place] [address] Pending Prescriptions: Disp Refills Atorvastatin Calcium 20 [...] appointment Last date the medication was ordered: 10/27/2023 Is this request for a controlled substance?No Urine Drug Screen:No results found for this or any previous visit. Patient Phone Numbers Labs: Lab Results Component Value Date/Time CREAT 1.0 10/03/2023 10:27 AM CREAT 1.2 03/09/2019 09:35 AM POTASSIUM 4.2 10/03/2023 10:27 AM POTASSIUM 4.2 03/09/2019 09:35 AM LDL 74 05/09/2023 09:22 AM LDL 79 03/09/2019 09:35 AM LDL NOT APPLICABLE 03/09/2019 09:35 AM ALT 29 05/09/2023 09:22 AM ALT 31 03/09/2019 09:35 AM HGBA1C 5.5 06/09/2023 09:45 AM HGBA1C 5.5 02/13/2018 09:49 AM documented in this encounter Plan of Treatment Upcoming Encounters Date Type Department Care Team (Late st Contact Info) Description 08/03/2024 3:45 PM EDT Office Visit Dermatology [facility] [address] [place] [address] Darin Tolbert MD [address] [place] [address] 10/12/2024 9:00 AM EDT Imaging Radiology [address] [place] [address] Scheduled Procedures Name Priority Associated Diagnoses Date/Ti me COLONOSCOPY FLEXIBLE PROXIMAL DIAGNOSTIC Recall Crohn's disease (HCC) Health Maintenance Due Date Last Done Comments Adult Wellness Visit 06/06/2019 06/05/2018 Influenza Vaccine (FLU shot) (#1) 2023 10/21/2020, 11/08/2019, 10/23/2019, Additional history exists COVID-19 Vaccine (2023- season) 2023 05/22/2021, 04/30/2020, 04/04/2020 Postponed from [...] this encounter Medical Devices Implanted Type Area Senior Lead Project Manager Device Identifier Shelf Expiration Date Model / Serial / Lot Lens Li61ao 13.00mm 21.00 - [id number] - [id number] Implanted:Qty: 1 on 12/21/2022 by Jose Mittal MD at OR [facility] Left: Eye [employer] 07/08/2027 [id number] / [id number] / [id number] Lens Li61ao 13.00mm 20.50 - [id number] - [id number] Implanted:Qty: 1 on 12/28/2022 by Jose Mittal MD at OR [facility] Right: Eye [employer] 09/07/2027 [id number] / [id number] / [id number] documented as of this encounter Visit Diagnoses Diagnosis Atherosclerosis of [place] coronary artery of [place] heart without angina pectoris documented in this [...] Power of Attor josh? No Care Teams Solution Make Up Operator Relationship Specialty Start Date End Date Gabriela Rangel MD [address] [place] [address] PCP - General Internal Medicine 10/05/23 documented as of this encounter
--- OUTSIDE RECORDS SUMMARY | 2024-02-06 06:36 | External Medical Summary | Summary of Care ---
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 [facility] To which of the following clinics are you referring your patient? General Cardiology Clinic Comments Abnormal Echo and VALDES Reason for Visit * Reason Onset Date Comments Test Results 12/30/2023 Encounter Details Date Type Department Care Team (Late st Contact Info) Description 12/30/2023 Telephone General Internal Medicine [place] [place] 200 [facility] [place] [address] Gabriela Rangel MD 200 [facility] [place] [address] Test Results Allergies Active Allergy Reactions Criticality [...] MG Oral Tablet ChewableIndicat ions:Atheroscle rosis of [place] coronary artery of [place] heart without angina pectoris Take 1 Tablet by mouth in the morning. with food.. 100 Tablet 5 4 Active Additional Information Patient not taking.Reported on 01/10/2024 Atorvastatin Calcium 20 MG Oral Tablet (Lipitor)Indica tions:Atheroscl erosis of [place] coronary artery of [place] heart without angina pectoris Take 1 Tablet [...] mRNA, LNP-s, No Pre serve, 2-Dose Series ([employer]) 05/22/2021,04/30/2020,04/04/2020 HEP A - Hepatitis A (Adult [...] encounter Miscellaneous Notes * Telephone Encounter - Marcelina Thayer OSA - 01/11/2024 12:04 PM EST Pt seen cardio on 01/09. * Telephone Encounter - Cydney Ramírez RN - 12/30/2023 3:14 PM EST Spoke with Roberto, he verbalizes understanding and will comply. He will await cardiology schedulingto reach out to set up appt. * Telephone Encounter - Gabriela Rangel MD - 12/30/2023 2:57 PM EST Yes I would start him on Lasix and potassium while waiting for cardiology appoint - please clarify potassium dose to be 10 meq . - sent to pharmacy . Reminder to get lab in 1 week. Please convey to him "it's my pleasure " Cariology within 10 days okay - sending to scheduling * Telephone Encounter - Cydney Ramírez RN - 12/30/2023 2:06 PM EST Spoke with patient, he denies having any swelling. Would you still recommend lasix without swellingpresent? He wanted to thank you for your great care Dr. Rangel, Cardio referral pended (3 day urgent?) thanks Provider to address: Reason for Call: Test Results Contact: Telephone Call Contact Type: Test Results Provider In-Basket: Yes Outcome: spoke with patient in detail. He verbalizes understanding and is agreeable to cardiology referral. Face to face time spent with Patient (minutes): 0 Total Time including non face to face (minutes): 10 * Telephone Encounter - Cydney Ramírez RN - 12/30/2023 1:54 PM EST ----- Message from Gabriela Rangel MD sent at 12/29/2023 9:53 PM EST ----- ECHO - at least moderate to severe aortic valve leaking with left ventricle wall borderline weak ( hypokinesis ) - this could be causing shortness of breath with exertion -significant 1st degree AV block with interventricular conduction delay - these are abnormal rhythmissue -stiffness of heart due to abnormal valve and rhythm issue -moderately enlarged aortic root and enlarged ascending aorta Suggest cardiology consult for further eval - within few weeks . Since his last BP was high and if he has some swelling suggest to lasix 20 mg daily along with KCL 20 meq daily and repeat BMP and pro-BNP in 1 week. Let me know documented in this encounter Plan of Treatment Upcoming Encounters Date Type Department Care Team (Late st Contact Info) Description 03/19/2024 9:00 AM EST Office Visit Cardiology, [facility] 132 [facility] [place] [address] Krys Garcia CRNP [address] [place] [address], [place] [address] 08/03/2024 3:45 PM EDT Office Visit Dermatology [facility] 200 [facility] [place] [address] Darin Tolbert MD 200 [facility] [place] [address] 10/12/2024 9:00 AM EDT Imaging Radiology [address] 132 [facility] [place] [address] Scheduled Procedures Name Priority Associated Diagnoses Date/Ti me COLONOSCOPY FLEXIBLE PROXIMAL DIAGNOSTIC Recall Crohn's disease (HCC) Scheduled Referrals Name Type Priority Associated Diagnoses Orde r Schedule CARDIOLOGY REFERRAL OP Referral Within 10 days (routine) 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) Ordered: 12/30/2023 Health Maintenance Due Date Last Done Comments [...] this encounter Medical Devices Implanted Type Area Fibreglass Laminator Device Identifier Shelf Expiration Date Model / Serial / Lot Lens Li61ao 13.00mm 21.00 - [id number] - [id number] Implanted:Qty: 1 on 12/21/2022 by Jose Mittal MD at OR [facility] Left: Eye [employer]OM[employer] 07/08/2027 [id number] / [id number] / [id number] Lens Li61ao 13.00mm 20.50 - [id number] - [id number] Implanted:Qty: 1 on 12/28/2022 by Jose Mittal MD at OR [facility] Right: Eye BAUSCH [employer] LOMB 09/07/2027 [id number] / [id number] / [id number] documented as of this encounter Results * (ABNORMAL) BNP, NT-PRO (01/10/2024 10:37 AM EST) BNP, NT-Pro 371(H) <300 pg/mL 01/10/2024 6:18 PM EST LAB[facility] Blood Venous blood specimen / Unknown Venipuncture / Unknown 01/10/2024 10:37 AM EST 01/10/2024 10:37 AM EST Narrative LAB[facility]ORY [facility] - 01/10/2024 6:18 PM EST Exclude Heart Failure: <300 pg/mL Diagnose Heart Failure: Age <50 yr: >450 pg/mL 50-75 yr: >900 pg/mL >75 yr: >1800 pg/mL GFR is 30-59 mL/min: >1200 pg/mL or Age-adjusted values GFR <30 mL/min: do not use, not reliable Prognostic threshold: 1000 pg/mL us Gabriela Rangel MD LAB BLOOD ORDERABLES Final Res ult LABORATORY [facility] [address] [place] [address] documented in this encounter Visit Diagnoses Diagnosis Nonrheumatic aortic valve insufficiency- Primary Aortic valve disorders Chronic diastolic heart failure [...] Power of Attor josh? No Care Teams Regulatory Affairs Assistant Relationship Specialty Start Date End Date Gabriela Rangel MD 200 [place] [address] PCP - General Internal Medicine 10/05/23 documented as of this encounter
--- OUTSIDE RECORDS SUMMARY | 2024-02-06 06:36 | External Medical Summary | Summary of Care ---
Author Name Unknown Organization [facility] Address [address] [place] [address] Phone [phone] Care Team Providers Care Management Intern Name Role Phone Segundo Rangel MD Primary Care Provider [phone] Reason for Visit * Reason Onset Date Comments Medication Refill 10/27/2023 Encounter Details Date Type Department Care Team (Late st Contact Info) Description 10/27/2023 Refill General Internal Medicine [facility] 200 [place] [address] Segundo Rangel MD 200 [place] [address] Atherosclerosis of [place] coronary artery of [place] heart without angina pectoris Allergies Active Allergy Reactions Criticality Noted Date Comments Salicylates Other (Please comment) 05/12/2010 Internal bleeding Lactose Intolerance 01/29/2008 Nsaids Other (Please comment) 01/29/2008 Internal bleeding documented as of this encounter (statuses as of 10/27/2023) Medications Medication Sig Dispensed Refills Start Date [...] MG Oral Tablet (Lipitor)Indicati ons:Atheroscleros is of [place] coronary artery of [place] heart without angina pectoris Take 1 Tablet by mouth in the morning. 30 Tablet 5 10/27/2023 Active Atorvastatin Calcium 20 MG Oral Tablet (Lipitor)Indicati ons:Atheroscleros is of [place] coronary artery of [place] heart without angina pectoris Take 1 Tablet by mouth in the morning. 30 Tablet 5 10/04/2023 10/27/2023 Discontinued (Refill) documented as of this encounter (statuses as of 10/27/2023) Active Problems Problem Noted Date Diagnosed Date [...] Location left posterior arm SLN negative BMI 35-39 ISOLATED (SEE ACTUAL BMI) 07/21/2009 Overview: Per Obesity Protocol, #19 documented as of this encounter (statuses as of 10/27/2023) Resolved Problems Problem Noted Date Diagnosed Date Resolved Date Prediabetes 03/22/2017 02/24/2018 Overview: Per Prediabetes protocol #1 Hearing loss 05/03/2012 02/13/2018 Hemorrhoids, external without complications 01/29/2008 12/22/2016 documented as of this encounter (statuses as of 10/27/2023) Immunizations Name Administration Dates Next Due COVID-19 mRNA, LNP-s, No Pre serve, 2-Dose Series ([employer]) 05/22/2021,04/30/2020,04/04/2020 HEP A - Hepatitis A (Adult [...] No 12/06/2022 Does the household have a [facility] hospital[facility] source of income? (Household - for ages [...] Telephone Encounter - Segundo Rangel MD - 10/27/2023 7:23 PM EDTSigned Prescriptions: Disp Refills Atorvastatin Calcium 20 MG Oral Tablet (Li*30 Tab*5 Sig: Take 1 Tablet by mouth in the morning. Authorizing Provider: SEGUNDO RANGEL * Telephone Encounter - Emoyr Amezcua CMA - 10/27/2023 3:07 PM EDTPending Prescriptions: Disp Refills Atorvastatin Calcium 20 MG Oral Tablet (Li*30 Tab*5 Sig: Take 1 Tablet by mouth in the morning. * Telephone Encounter - Cindy Rangel OSA - 10/27/2023 2:09 PM EDT Did you pend patient's preferred pharmacy and medication before forwarding?yes Pharmacy: [id number] [address] [facility] Pending Prescriptions: Disp Refills Atorvastatin Calcium 20 MG Oral Tablet (L*30 Tab*5 Sig: Take 1 Tablet by mouth in the morning. Last Visit: 09/29/2023 (in office), Visit date not found (telemedicine) Next Visit: 11/15/2023 If no future appointments scheduled, and last appointment is greater than a year ago, please schedule patient for a follow-up appointment Last date the medication was ordered: 10/04/2023 Is this request for a controlled substance?No [...] Care Team (Late st Contact Info) Description 11/15/2023 9:40 AM EDT Office Visit General Internal Medicine [facility] 200 [place] [address] Segundo Rangel MD 200 [place] [address] 08/03/2024 3:45 PM EDT Office Visit Dermatology [facility] 200 [place] [address] Darin Tolbert MD 200 [place] [address] 10/12/2024 9:00 AM EDT Imaging Radiology [address] 132 [facility] [place] [address] Scheduled Procedures Name Priority Associated Diagnoses Date/Ti [...] this encounter Medical Devices Implanted Type Area Campaign Director Device Identifier Shelf Expiration Date Model / Serial / Lot Lens Li61ao 13.00mm 21.00 - [id number] - [id number] Implanted:Qty: 1 on 12/21/2022 by Jose Mittal MD at OR [facility] Left: Eye [employer]OMB 07/08/2027 [id number] / [id number] / [id number] Lens Li61ao 13.00mm 20.50 - [id number] - [id number] Implanted:Qty: 1 on 12/28/2022 by Jose Mittal MD at OR [facility] Right: Eye [employer]CH [employer] LOMB 09/07/2027 [id number] / [id number] / [id number] documented as of this encounter Visit Diagnoses Diagnosis Atherosclerosis of [place] coronary artery of [place] heart without angina pectoris documented in this [...] Power of Attor josh? No Care Teams Management Intern Relationship Specialty Start Date End Date Segundo Rangel MD [address] [place] [address], [place] [address] PCP - General Internal Medicine 10/05/23 documented as of this encounter
--- OUTSIDE RECORDS SUMMARY | 2024-02-06 06:36 | External Medical Summary | Summary of Care ---
Author Name Unknown Organization [facility] Address [address] [place] [address] Phone [phone] Care Team Providers Care Mortgage Closing Clerk Name Role Phone Gabriela Rangel MD Primary Care Provider [phone] Reason for Visit * Reason Comments Outpatient Testing Encounter Details Date Type Department Care Team (Latest Contact Info) Description 01/10/2024 10:40 AM EST Laboratory Laboratory 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 with food.. 100 Tablet 5 10/31/2023 Active Atorvastatin Calcium 20 MG Oral Tablet (Lipitor)Indica tions:Atheroscl erosis of [place] coronary artery of [place] heart without angina pectoris Take 1 Tablet by mouth in the morning. 30 Tablet 5 11/01/2023 Active Furosemide 20 MG Oral Tablet (Lasix)Indicati ons:Nonrheumati c aortic valve insufficiency,C hronic diastolic heart failure due to valvular disease (HCC) Take 1 Tablet by mouth in the morning. 30 Tablet 1 12/30/2023 Active Potassium Chloride ER 10 MEQ Oral Capsule Extended ReleaseIndicati ons:Nonrheumati c aortic valve insufficiency,C hronic diastolic heart failure due to valvular disease (HCC) Take 1 Capsule by mouth in the morning. 30 Capsule 1 12/30/2023 Active documented as of this encounter (statuses as of 01/10/2024) Active Problems Problem Noted Date Diagnosed Date [...] as of this encounter (statuses as of 01/10/2024) Resolved Problems Problem Noted Date Diagnosed Date Resolved Date Prediabetes 03/22/2017 02/24/2018 Overview: Per Prediabetes protocol #1 Hearing loss 05/03/2012 02/13/2018 ADVANCE DIRECTIVE INFORMATION 01/25/2012 12/12/2023 Hemorrhoids, external without complications 01/29/2008 12/22/2016 documented as of this encounter (statuses as of 01/10/2024) Immunizations Name Administration Dates Next Due COVID-19 mRNA, LNP-s, No Pre serve, 2-Dose Series ([employer]) 05/22/2021,04/30/2020,04/04/2020 HEP A - Hepatitis A (Adult [...] Care Team (Late st Contact Info) Description 01/10/2024 2:00 PM EST Office Visit Cardiology, [facility] 132 [facility] [place] [address] Angel Gooden, 132 [facility] [place] [address] 08/03/2024 3:45 PM EDT Office Visit Dermatology [facility] 200 [facility] [place] [address] Darin Tolbert MD 200 [facility] [place] [address] 10/12/2024 9:00 AM EDT Imaging Radiology [facility] 1st [facility] 132 [facility] [place] [address] Pending Results Name Type Priority Associated Diagnoses Date /Time COMPREHENSIVE METABOLIC PANEL Lab Routine Atherosclerosis of [place] coronary artery of [place] heart without angina pectoris 01/10/2024 10:37 AM EST LIPID PANEL WITH DIRECT LDL IF TG IS HIGH Lab Routine Atherosclerosis of [place] coronary artery of [place] heart without angina pectoris 01/10/2024 10:37 AM EST MYCODE INITIAL ADULT Lab Routine [employer] Other*[id number] 01/10/2024 10:37 AM EST BNP, NT-PRO Lab Routine 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) 01/10/2024 10:37 AM EST MYCODE INITIAL ADULT-PINK Lab Routine [employer] Other*[id number] 01/10/2024 10:37 AM EST MYCODE SST1 Lab Routine [employer] Other*[id number] 01/10/2024 10:37 AM EST MYCODE SST2 Lab Routine [employer] Other*[id number] 01/10/2024 10:37 AM EST Scheduled Procedures Name Priority Associated [...] this encounter Medical Devices Implanted Type Area Correspondence Review Clerk Device Identifier Shelf Expiration Date Model / Serial / Lot Lens Li61ao 13.00mm 21.00 - [id number] - [id number] Implanted:Qty: 1 on 12/21/2022 by Jose Mittal MD at OR [facility] Left: Eye [employer] LOMB 07/08/2027 [id number] / [id number] / [id number] Lens Li61ao 13.00mm 20.50 - [id number] - [id number] Implanted:Qty: 1 on 12/28/2022 by Jose Mittal MD at OR [facility] Right: Eye BAUSCH & LOMB 09/07/2027 [id number] / [id number] / [id number] documented as of this encounter Visit Diagnoses Diagnosis Atherosclerosis of [place] coronary artery of [place] heart without angina pectoris [employer] Other*[id number] Nonrheumatic aortic valve insufficiency Aortic valve disorders [...] Power of Attor josh? No Care Teams Mortgage Closing Clerk Relationship Specialty Start Date End Date Gabriela Rangel MD 200 [place] [address] PCP - General Internal Medicine 10/05/23 documented as of this encounter
--- OUTSIDE RECORDS SUMMARY | 2024-02-06 06:36 | External Medical Summary | Summary of Care ---
Author Name Unknown Organization [facility] Address [address] [place] [address] Phone [phone] Care Team Providers Care Director Of Diagnostic Imaging Name Role Phone Gabriela Rangel MD Primary Care Provider [phone] Reason for Visit * Reason Onset Date Comments Appointment 01/10/2024 Encounter Details Date Type Department Care Team (Late st Contact Info) Description 01/10/2024 Telephone Cardiology, [facility] [address] [place] [address] Angel Gooden, [address] [place] [address] Appointment Allergies Active Allergy Reactions Criticality Noted Date Comments Lactose Intolerance 01/29/2008 Nsaids Other (Please comment) 01/29/2008 Internal bleeding documented as of this encounter (statuses as of 01/10/2024) Medications MULTIVITAL-M PO TABS 4 Active Vitamin [...] MG Oral Tablet ChewableIndicat ions:Atheroscle rosis of [place] coronary artery of [place] heart without angina pectoris Take 1 Tablet by mouth in the morning. with food.. 100 Tablet 5 4 Active Additional Information Patient not taking.Reported on 01/10/2024 Atorvastatin Calcium 20 MG Oral Tablet (Lipitor)Indica tions:Atheroscl erosis of [place] coronary artery of [place] heart without angina pectoris Take 1 Tablet [...] mRNA, LNP-s, No Pre serve, 2-Dose Series ([employer]) 05/22/2021,04/30/2020,04/04/2020 HEP A - Hepatitis A (Adult [...] encounter Miscellaneous Notes * Telephone Encounter - Jessica Murphy OSA - 01/10/2024 3:36 PM EST Patient is ordered a cardiac study, please assist patient to schedule, thank you. MRI CARDIAC, ADULT W WO CONTRAST [[id number]] (Order [id number]) documented in this encounter Plan of Treatment Upcoming Encounters Date Type Department Care Team (Late st Contact Info) Description 03/19/2024 9:00 AM EST Office Visit Cardiology, [address] [place] [address] Krys Garcia CRNP 400 [facility] [place] [address] 08/03/2024 3:45 PM EDT Office Visit Dermatology [facility] 200 [facility] [place] [address] Darin Tolbert MD 200 [facility] [place] [address] 10/12/2024 9:00 AM EDT Imaging Radiology [facility] [address] [place] [address] Scheduled Procedures Name Priority Associated Diagnoses Date/Ti [...] this encounter Medical Devices Implanted Type Area Telemarketing Fundraiser Device Identifier Shelf Expiration Date Model / Serial / Lot Lens Li61ao 13.00mm 21.00 - [id number] - [id number] Implanted:Qty: 1 on 12/21/2022 by Jose Mittal MD at OR [facility] Left: Eye BAUSCH [employer] LOMB 07/08/2027 [id number] / [id number] / [id number] Lens Li61ao 13.00mm 20.50 - [id number] - [id number] Implanted:Qty: 1 on 12/28/2022 by Jose Mittal MD at OR [facility] Right: Eye BAUSCH & LOMB 09/07/2027 [id number] / [id number] / [id number] documented as of this encounter Advance Directives [...] Power of Attor josh? No Care Teams Director Of Diagnostic Imaging Relationship Specialty Start Date End Date Gabriela Rangel MD 200 [facility] [place] [address] PCP - General Internal Medicine 10/05/23 documented as of this encounter
--- OUTSIDE RECORDS SUMMARY | 2024-02-06 06:36 | External Medical Summary ---
Author Name Unknown Address Unknown Organization [id number]:[facility] [address] [facility] [place] [address] Laboratory Report Ordering Provider Test Date Status FRANCESCO HIGGINS 01/10/2024 10:37:55 Final Observation Date Value Abnormality Reference (Units ) Status MYCODE SPECIMEN-SST 01/10/2024 10:37:55 Freezing of extracted DNA, whole blood and/or serum. Final Performing Location [facility] [place] [address] [place] [address]
--- OUTSIDE RECORDS SUMMARY | 2024-02-06 06:36 | External Medical Summary ---
Author Name Unknown Address Unknown Organization [id number]:[facility] [place] - [address] [facility] [address] Laboratory Report Ordering Provider Test Date Status BRIAN RAYMOND 01/10/2024 10:37:55 Final Observation Date Value Abnormality Reference (Units ) Status Triglyceride 01/10/2024 10:37:55 157 <=174 ( mg/dL) Final Triglyceride Reference Range s (mg/dL):
<150 Acceptable
150-174 Borderline high
175-499 High
>=500 Very high Cholesterol 01/10/2024 10:37:55 132 <200 (mg /dL) Final Total Cholesterol Reference Ranges (mg/dL):
<200 Desirable
200-239 Borderline high
>=240 High HDL 01/10/2024 10:37:55 55 >39 (mg/dL ) Final HDL Cholesterol Reference Ra nges (mg/dL):
>=60 High (Desirable)
<50 Low (Undesirable) For Females
<40 Low (Undesirable) For Males NON-HDL CHOLESTEROL 01/10/2024 10:37:55 77 <=159 (mg/dL) Final Non-HDL Cholesterol Referenc e Range (mg/dL):
<100 Target level for high risk ASCVD patient
<130 Optimal for general population
130-159 Near optimal for general population
160-189 Borderline High
190-219 High
>=220 Very High Performing Location LABORATORY [facility] - [address] [place] [address]
--- OUTSIDE RECORDS SUMMARY | 2024-02-06 06:36 | External Medical Summary | Summary of Care ---
Author Name Unknown Organization [facility] Address [address] [place] [address] Phone [phone] Care Team Providers Care Animal Keeper Head Name Role Phone Gabriela Rangel MD Primary Care Provider Reason for Referral * Precert (Within 10 days (routine)) - Authorized Specialty Diagnoses / Procedures Referred By Contac t Referred To Contact Radiology Diagnoses Nonrheumatic aortic valve insufficiency Aortic root enlargement (HCC) Ascending aorta enlargement (HCC) Procedures MRI CARDIAC, ADULT W WO CONTRAST Angel Gooden DO [address] [place] [address] Phone: tel: fax: Referral ID Status Reason Start Date Expiration Date V isits Requested Visits Authorized [id number] Authorized Precert 01/11/2024 999 999 Reason for Visit * Reason Comments NEW PATIENT * Evaluate & Treat - Unlimited Visits (Within 10 days (routine)) - Authorized Specialty Diagnoses / Procedures Referred By Contact Referred To Contact Cardiovascular Medicine / Cardiology Diagnoses 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) Gabriela Rangel MD [address] [place] [address] Phone: tel: fax: Referral ID Status Reason Start Date Expiration Date Visits Requested Visits Authorized [id number] Authorized Specialty Services Required 4 [id number] Encounter Details Date Type Department Care Team (Late st Contact Info) Description 01/10/2024 2:00 PM EST Office Visit Cardiology, [facility] [address] [place] [address] Angel Gooden DO [address] [place] [address] Syncope, unspecified syncope type*; Bifascicular bundle branch block; Nonrheumatic aortic valve insufficiency; Aortic root enlargement (HCC); Ascending aorta enlargement (HCC) Allergies Active Allergy Reactions Criticality Noted [...] MG Oral Tablet ChewableIndicat ions:Atheroscle rosis of [place] coronary artery of [place] heart without angina pectoris Take 1 Tablet by mouth in the morning. with food.. 100 Tablet 5 4 Active Additional Information Patient not taking.Reported on 01/10/2024 Atorvastatin Calcium 20 MG Oral Tablet (Lipitor)Indica tions:Atheroscl erosis of [place] coronary artery of [place] heart without angina pectoris Take 1 Tablet [...] mRNA, LNP-s, No Pre serve, 2-Dose Series (MyFeelBack) 05/22/2021,04/30/2020,04/04/2020 HEP A - Hepatitis A (Adult [...] No 12/06/2022 Does the household have a [facility]? (Household - for ages [...] Sign Reading Time Taken Comments Blood Pressure 148/86 01/10/2024 2:10 PM EST Pulse 82 01/10/2024 2:10 PM EST Temperature - - Respiratory Rate 16 01/10/2024 2:10 PM EST Oxygen Saturation - - Inhaled Oxygen Concentration - - Weight 107.6 kg (237 lb 3.2 oz) 01/10/2024 2:10 PM EST Height - - Body Mass Index 34.03 10/31/2023 12:03 PM EDT documented in this encounter Progress Notes * Angel Gooden, - 01/10/2024 2:09 PM EST Cardiology Consultation [facility] 01/10/2024 Reason for Consultation: Syncope, dyspnea on exertion, abnormal EKG, abnormal echocardiogram. Provider Requesting Consultation: PCP: [place] [address] [phone] History of Present Illness Roberto Moore, a 73-year-old male with a history of high blood pressure and Crohn's disease, presents with a chief complaint of shortness of breath with exertion and recurrent episodes of syncope. The patient reports that these symptoms have been progressively worsening since 2019. The patient's episodes of syncope are often preceded by dizziness and have resulted in multiple falls, including instances at home, in public places, and while golfing. The patient has also experienced episodes of seeing stars at night and has had to reduce physical activity due to these symptoms. The patient's shortness of breath has been particularly noticeable during physical exertion, such as walking up stairs or golfing. The patient has adapted by pacing himself during these activities and has received assistance from family members for more strenuous tasks. The patient's medical history includes high blood pressure, for which he is currently taking amlodipine and valsartan, and Crohn's disease, which was diagnosed approximately 40 years ago. The patientalso has a family history of heart disease, with a sister who may have had a stent placement. The patient's symptoms prompted a series of diagnostic tests, including an EKG and an echocardiogram. The EKG revealed a bifascicular block and a prolonged FL interval, suggesting conduction system disease. The echocardiogram showed moderate to severe aortic valve regurgitation and an enlarged aorta. The patient's ejection fraction was at the lower limit of normal, suggesting possible heart failure. In summary, this patient presents with a complex constellation of symptoms, including shortness of breath, recurrent syncope, and dizziness, in the context of an abnormal EKG and echocardiogram. These findings suggest possible conduction system disease and aortic valve dysfunction, which will require further investigation and management. Review of Systems: All systems reviewed & are unremarkable except as noted in HPI & below Past Medical History: Patient Active Problem List Diagnosis BMI 32.0-32.9,adult Hx of melanoma of skin HTN, goal below 140/90 History of basal cell carcinoma Crohn's disease, unspecified, without complications (HCC) Hx of actinic keratosis Crohn's disease of large intestine without complication (HCC) Past Surgical History: Procedure Laterality Date COLONOSCOPY W/ BIOPSY (RECTUM) 05/12/2010 diverticulosis,bxs done path shows some inflammation but negative for dysplasia repeat in 3 years COLONOSCOPY, DIAGNOSTIC (RECTUM) 06/20/2013 inflammation at anastamosis site, repeat 3 yrs/COLONOSCOPY FLEXIBLE PROXIMAL DIAGNOSTIC performed by Lance Fried MD at ENDOSCOPY [facility] COLONOSCOPY, DIAGNOSTIC (RECTUM) 11/02/2016 inflammation on bx, repeat 2 yrs/COLONOSCOPY FLEXIBLE PROXIMAL DIAGNOSTIC performed by Lance Fried MD at ENDOSCOPY [facility] COLONOSCOPY, DIAGNOSTIC (RECTUM) 04/11/2019 normal bx, repeat 3 yrs / COLONOSCOPY FLEXIBLE PROXIMAL DIAGNOSTIC performed by Lance Fried MD at ENDOSCOPY [facility] COLONOSCOPY, DIAGNOSTIC (RECTUM) 06/06/2023 patent end-side ileo-colonic anastomosis/mild diverticulosis/hemorrhoids/biopsies normal/recall 3 years/COLONOSCOPY FLEXIBLE PROXIMAL DIAGNOSTIC performed by Apollo Seay DO at ENDOSCOPY [facility] MELANOMA EDU 1 melanoma OTHER 1989 bowel non cancer probable Crohn's resection OTHER sebacious cyst back REMOVE CATARACT, INSERT LENS PROSTH Left 12/21/2022 LEFT EXTRACAPSULAR CATARACT REMOVAL WITH INTRAOCULAR LENS performed by Jose Mittal MD at OR [facility] REMOVE CATARACT, INSERT LENS PROSTH Right 12/28/2022 RIGHT EXTRACAPSULAR CATARACT REMOVAL WITH INTRAOCULAR LENS performed by Jose Mittal MDa OR [facility] REMOVE TONSILS & ADENOIDS, UNDER 12 REPAIR INITIAL INGUINAL HERNIA REDUCIBLE AGE 5 OR MORE R Family History: Father: at the age of 54, metastatic cancer, details unknown Mother: at the age of 93, of "old age" Sibling: sister , possibly has coronary heart disease Social History: Social History Socioeconomic History Marital status: Spouse name: Susu Number of children: 3 sons, two are local, one lives in [place], [place] Occupational History Comment: retired Sales and management with [employer] Tobacco Use Smoking status: Some Days Types: Cigars Smokeless tobacco: Never Tobacco comments: cigar 3-4 times per week Vaping Use Vaping status: Never Used Substance and Sexual Activity Alcohol use: No Drug use: No Sexual activity: Yes Partners: Female Allergies: Lactose intolerance and Nsaids Medications: Current Outpatient Medications Medication Sig Dispense Refill MULTIVITAL-M PO TABS Vitamin B Complex-C Oral Capsule Take 1 Capsule by mouth in the morning. 30 Capsule 0 amLODIPine Besylate 2.5 MG Oral Tablet (Norvasc) Take 1 Tablet by mouth in the morning. Valsartan 320 MG Oral Tablet (Diovan) Take 1 Tablet by mouth in the morning. 90 Tablet 1 Fluticasone Propionate 50 MCG/ACT Nasal Suspension (Flonase) SPRAY 2 SPRAYS INTO EACH NOSTRIL EVERYDAY 48 mL 1 Aspirin 81 MG Oral Tablet Chewable Take 1 Tablet by mouth in the morning. with food.. 100 Tablet 5 Atorvastatin Calcium 20 MG Oral Tablet (Lipitor) Take 1 Tablet by mouth in the morning. 30 Tablet 5 Furosemide 20 MG Oral Tablet (Lasix) Take 1 Tablet by mouth in the morning. 30 Tablet 1 Potassium Chloride ER 10 MEQ Oral Capsule Extended Release Take 1 Capsule by mouth in the morning. 30 Capsule 1 No current facility-administered medications for this visit. OBJECTIVE/PHYSICAL EXAMINATION: BP 148/86 (BP Site: Left Arm) | Pulse 82 | Resp 16 | Wt 107.6 kg (237 lb 3.2 oz) | BMI 34.03 kg/m| BSA 2.31 m BP Readings from Last 4 Encounters: 01/10/24 148/86 10/31/23 156/88 09/29/23 132/86 06/09/23 140/84 General: no acute distress and stated age Eyes: conjunctiva are pink and non-injected, sclera clear Neck: normal jugular venous pulse, no hepatojugular reflux Chest: normal shape and normal respiratory effort Lungs: clear to auscultation and percussion Cardiac Exam: - regular heart sounds, 1/6 diastolic murmur Abdomen: abdomen soft, non-tender, no abnormal masses and no hepatosplenomegaly Musculoskeletal: no gait disturbance, no weakness Extremities: no edema and no cyanosis Neuro: grossly normal exam Psych: appropriate affect and insight. Data: Summary of ttecho performed 12/29/23: The left ventricular cavity size is normal. The LV wall thickness is moderately increased (concentric). The septal motion is abnormal consistent with intrventricular conduction delay. The remaining left ventricular wall segments are borderline hypokinetic. The qualitative LV ejection fraction is 50-54% (normal). The left ventricular diastolic function is abnormal by 2-D findings. The aortic valve is mildly calcified. There is moderate to severe aortic insufficiency in an eccentric jet coursing across the anterior mitral valve leaflet. Severity may be underestimated by current study The aortic root and proximal ascending aorta are moderately enlarged. (4.6 cm/4.4 cm) There is no evidence of pulmonary hypertension. Rhythm during procedure sinus with marked first-degree AV block and interventricular conduction delay Summary of non contrast CT chest 10/06/23: 1. There is ectasia of the ascending thoracic aorta which measures up to 4.8 cm. 2. Solid pulmonary nodules measuring less than 6 mm. For patients at low risk (minimal or absent history of smoking and of other known risk factors), no routine follow-up is indicated. For patients at high risk (history of smoking or of other known risk factors), consider optional CT Chest at 12 months. (Reference: JeetUt). Latest Reference Range & Units 05/09/23 09:22 Triglycerides <=174 mg/dL 129 Cholesterol <200 mg/dL 159 Non-HDL Cholesterol <=159 mg/dL 100 HDL Cholesterol >39 mg/dL 59 LDL Cholesterol <=129 mg/dL 74 Results LABS Kidney panel: Normal (01/10/2024) RADIOLOGY CT scan: Aortic root 4.8 cm (09/2023) DIAGNOSTIC EKG: Heart rate 91 bpm, bifascicular block, prolonged conduction time, electrical system disease (12/29/2023) Echocardiogram: Moderate to severe aortic valve regurgitation, ejection fraction 50-54%, mild calcification of aortic valve, aortic root 4.6 cm, ascending aorta 4.4 cm Assessment & Plan Syncope Recurrent episodes of syncope and dizziness since 2020, progressively worsening. Associated with exertion and positional changes. Differential includes cardiac etiology due to abnormal EKG findings (bifascicular block, prolonged conduction times) and possible conduction system disease. Discussed potential heart rhythm abnormalities causing syncope, including the risk of heart rate dropping below t he threshold of maintaining blood pressure, leading to syncope. - Order 2-week heart monitor to screen for heart rhythm abnormalities Aortic Valve Regurgitation Moderate to severe aortic valve regurgitation with symptoms of shortness of breath and decreased activity tolerance. Echocardiogram shows mild aortic valve calcification and incomplete closure of theaortic valve. Ejection fraction is at the lower limit of normal (50-54%). Discussed potential need for aortic valve replacement and aortic root repair surgery depending on MRI results. Transcatheter aortic valve implantation is not typically the treatment of choice for aortic regurgitation, especially with an enlarged aorta. - Order cardiac MRI to assess ejection fraction and for quantification of aortic regurgitation. - Discuss potential need for aortic valve replacement and aortic root repair surgery depending on MRI results Aortic Root Dilation Mild to moderate enlargement of the aortic root (4.6-4.8 cm) noted on echocardiogram and CT scan. Requires monitoring due to risk of aortic dissection. Discussed risk of aortic dissection if the aorta enlarges beyond 5 cm, necessitating surgical intervention. If valve surgery is indicated, aortic root repair may be performed simultaneously to prevent future complications. - Monitor aortic root size with cardiac MRI - Discuss potential surgical intervention if aortic root size exceeds 5 cm or if valve surgery is indicated Hypertension Hypertension managed with valsartan and amlodipine. Recent adjustment of amlodipine dose due to legswelling. Blood pressure improved but not optimal. Discussed importance of blood pressure control in managing aortic valve regurgitation and aortic root dilation. - Continue valsartan 320 mg daily - Continue amlodipine 2.5 mg daily - Monitor blood pressure regularly Hyperlipidemia Well-controlled on atorvastatin 20 mg daily. Cholesterol levels are within target range. - Continue atorvastatin 20 mg daily General Health Maintenance Routine health maintenance discussed. No new issues identified. - Continue current medications including furosemide 20 mg daily and potassium supplement - Monitor kidney function if MRI is delayed beyond 4 weeks Follow-up - Schedule cardiac MRI - Follow-up with cardiology after MRI results Follow Up: Return in about 2 months (around 03/12/2024) for Clinic Visit. | For: Clinic Visit Angel Gooden DO Cardiology, [address] [address] This chart was completed in part utilizing [employer] Speech Voice Recognition Software. Grammatical errors, random word insertions, prounoun errors, and incomplete sentences are an occasional consequence of this system due to software limitations, ambient noise, and hardware issues. Any formal questions or concerns about the content, text, or information contained within the body of this dictation should be directly addressed to the provider for clarification. documented in this encounter Nursing Notes * Brittnee Levy CMA - 01/10/2024 2:01 PM EST Examination Room: 10 Name: Roberto Moore Date of : (1950). Reason for Visit: 10 Interim Hospitalization(s): denies Problems/Concerns: Discuss echo, EKG, dizzy spells, says this came on after covid. Chest Pain/SOB: SOB with exertion. SOB sometimes accompanies dizzy spells. Chest pain with minimal-moderate exertion, did have palps that havent been a problem recently. [facility] Discussed: Not applicable [facility] is a way you can talk to your provider online through e-mail. Would you like to sign up? I can activate it for you? ALREADY ACTIVE Patient was instructed to not get up on the exam table until directed and assisted by their provider; patient is to remain seated in the chair/ wheelchair/ exam table for fall prevention and safety reasons. Patient is aware to have assistance to step down off exam table with personnel. Patient voiced full comprehension of instructions. documented in this encounter Plan of Treatment Upcoming Encounters Date Type Department Care Team (Late st Contact Info) Description 03/19/2024 9:00 AM EST Office Visit [facility], [facility] [address] [facility] [facility] [address] Krys Garcia CRNP [address] [facility] [place] [address] 08/03/2024 3:45 PM EDT Office Visit Dermatology [facility] [address] [facility] [place] [address] Darin Tolbert MD [address] [facility] [place] [address] 10/12/2024 9:00 AM EDT Imaging Radiology [address] [facility] [place] [address] Scheduled Orders Name Type Priority Associated Diagnoses Orde r Schedule EXTERNAL EKG 8 TO 15 DAYS Holter Routine Syncope, unspecified syncope type Bifascicular bundle branch block Expected: 01/11/2024 (Approximate), Expires: 01/09/2025 MRI CARDIAC, ADULT W WO CONTRAST Medical Imaging Routine Nonrheumatic aortic valve insufficiency Aortic root enlargement (HCC) Ascending aorta enlargement (HCC) Expected: 01/11/2024, Expires: 02/09/2025 BASIC METABOLIC PANEL Lab Routine Nonrheumatic aortic valve insufficiency Expected: 01/17/2024, Expires: 01/09/2025 Scheduled Procedures Name Priority Associated Diagnoses Date/Ti [...] this encounter Medical Devices Implanted Type Area Snath Handle Assembler Device Identifier Shelf Expiration Date Model / Serial / Lot Lens Li61ao 13.00mm 21.00 - [id number] - [id number] Implanted:Qty: 1 on 12/21/2022 by Jose Mittal MD at OR [facility] Left: Eye [employer] 07/08/2027 [id number] / [id number] / [id number] Lens Li61ao 13.00mm 20.50 - [id number] - [id number] Implanted:Qty: 1 on 12/28/2022 by Jose Mittal MD at OR [facility] Right: Eye [employer] 09/07/2027 [id number] / [id number] / [id number] documented as of this encounter Visit Diagnoses Diagnosis Syncope, unspecified syncope type- Primary Bifascicular bundle branch block Other bilateral bundle branch block Nonrheumatic aortic valve insufficiency Aortic valve disorders Aortic root enlargement (HCC) Other specified disorders of arteries and arterioles Ascending aorta enlargement (HCC) Other specified disorders of arteries and arterioles documented in this encounter Advance Directives * [...] Power of Attor josh? No Care Teams Animal Keeper Head Relationship Specialty Start Date End Date Gabriela Rangel MD [address] [facility] [place] [address] PCP - General Internal Medicine 10/05/23 documented as of this encounter
--- OUTSIDE RECORDS SUMMARY | 2024-02-06 06:36 | External Medical Summary | Summary of Care ---
Author Name Unknown Organization [facility] Address [address] [place] [address] Phone [phone] Care Team Providers Care Lumber Material Handler Name Role Phone Gabriela Rangel MD Primary Care Provider [phone] Reason for Referral * Precert (Within 10 days (routine)) - Authorized Specialty Diagnoses / Procedures Referred By Shalini sandoval Referred To Contact Radiology Diagnoses Atherosclerosis of [place] coronary artery of [place] heart without angina pectoris Pulmonary nodule Procedures CT CHEST WO CONTRAST Gabriela Rangel MD [address] [place] [address] Referral ID Status Reason Start Date Expiration Date V isits Requested Visits Authorized [id number] Authorized 10/11/2024 999 999 * Precert (Within 10 days (routine)) - Authorized Specialty Diagnoses / Procedures Referred By Shalini sandoval Referred To Contact Radiology Diagnoses Atherosclerosis of [place] coronary artery of [place] heart without angina pectoris Abnormal chest x-ray Procedures CT CHEST WO CONTRAST Gabriela Rangel MD [address] [place] [address] Referral ID Status Reason Start Date Expiration Date V isits Requested Visits Authorized [id number] Authorized 10/04/2023 999 999 Reason for Visit * Reason Onset Date Comments Appointment 10/03/2023 Encounter Details Date Type Department Care Team (Late st Contact Info) Description 10/03/2023 Telephone General Internal Medicine [facility] [address] [facility] [place] [address] Gabriela Rangel MD [address] [facility] [place] [address] Appointment Allergies Active Allergy Reactions Criticality Noted Date Comments Salicylates Other (Please comment) 05/12/2010 Internal bleeding Lactose Intolerance 01/29/2008 Nsaids Other (Please comment) 01/29/2008 Internal bleeding documented as of this encounter (statuses as of 10/12/2023) Medications Medication Sig Dispensed Refills Start Date [...] the morning. 90 Tablet 1 09/29/2023 Active Atorvastatin Calcium 20 MG Oral Tablet (Lipitor)Indicati ons:Atheroscleros is of [place] coronary artery of [place] heart without angina pectoris Take 1 Tablet by mouth in the morning. 30 Tablet 5 10/04/2023 Active Fluticasone Propionate 50 MCG/ACT Nasal Suspension (Flonase) SPRAY 2 SPRAYS INTO EACH NOSTRIL EVERY DAY 48 mL 1 04/04/2023 10/07/2023 Discontinued documented as of this encounter (statuses as of 10/12/2023) Active Problems Problem Noted Date Diagnosed Date [...] as of this encounter (statuses as of 10/12/2023) Resolved Problems Problem Noted Date Diagnosed Date Resolved Date Prediabetes 03/22/2017 02/24/2018 Overview: Per Prediabetes protocol #1 Hearing loss 05/03/2012 02/13/2018 Hemorrhoids, external without complications 01/29/2008 12/22/2016 documented as of this encounter (statuses as of 10/12/2023) Immunizations Name Administration Dates Next Due COVID-19 mRNA, LNP-s, No Pre serve, 2-Dose Series ([employer]) 05/22/2021,04/30/2020,04/04/2020 HEP A - Hepatitis A (Adult [...] as of this encounter Miscellaneous Notes * Addendum Note - Gabriela Rangel MD - 10/12/2023 2:09 PM EDTAddended by: GABRIELA RANGEL on: 10/12/2023 02:09 PM Modules accepted: Orders * Telephone Encounter - Gabriela Rangel MD - 10/04/2023 3:17 PM EDT Signed and sent to scheduling * Telephone Encounter - Kari Frederick LPN - 10/04/2023 2:55 PM EDT Called patient, he is agreeable to CT scan and starting Lipitor * Telephone Encounter - Kari Frederick LPN - 10/04/2023 2:53 PM EDT ----- Message from Gabriela Rangel MD sent at 09/30/2023 4:04 PM EDT ----- CXR - no heart failure but incidental aortic atherosclerosis which means plaques build up with ? Aneurysm. Suggest to gets CT chest without contrast for eval if agreeable, can discuss with PCP in next appoint as well Although his cholesterol is not bad due to atherosclerosis suggest to take lipitor 20 mg at night to reduce risk of heart attack - can discuss with PCP as well * Telephone Encounter - Gabriela Rangel MD - 10/03/2023 1:16 PM EDT Noted I see he is already scheduled * Telephone Encounter - Khloe Riddle LPN - 10/03/2023 11:03 AM EDT Ok to schedule him for a follow up with you, please advise? * Telephone Encounter - Kassandra De La Rosa OSA - 10/03/2023 10:42 AM EDT Pt asking to see Uche for a follow up Nothing avail added pt to the list Pt stated he really wants to see her only documented in this encounter Plan of Treatment Upcoming Encounters Date Type Department Care Team (Late st Contact Info) Description 11/15/2023 9:40 AM EDT Office Visit General Internal Medicine [facility] [address] [facility] [place] [address] Gabriela Rangel MD [address] [facility] [place] [address] 08/03/2024 3:45 PM EDT Office Visit Dermatology [facility] [address] [facility] [place] [address] Darin Tolbert MD [address] [facility] [place] [address] Scheduled Orders Name Type Priority Associated Diagnoses Orde r Schedule COMPREHENSIVE METABOLIC PANEL Lab Routine Atherosclerosis of [place] coronary artery of [place] heart without angina pectoris Expected: 01/04/2024, Expires: 10/03/2024 LIPID PANEL WITH DIRECT LDL IF TG IS HIGH Lab Routine Atherosclerosis of [place] coronary artery of [place] heart without angina pectoris Expected: 01/04/2024, Expires: 10/03/2024 CT CHEST WO CONTRAST Medical Imaging Routine Atherosclerosis of [place] coronary artery of [place] heart without angina pectoris Pulmonary nodule Expected: 10/11/2024, Expires: 11/10/2024 Scheduled Procedures Name Priority Associated Diagnoses Date/Ti [...] this encounter Medical Devices Implanted Type Area Field Hand Device Identifier Shelf Expiration Date Model / Serial / Lot Lens Li61ao 13.00mm 21.00 - [id number] - [id number] Implanted:Qty: 1 on 12/21/2022 by Jose Mittal MD at OR [facility] Left: Eye [employer] 07/08/2027 [id number] / [id number] / [id number] Lens Li61ao 13.00mm 20.50 - [id number] - [id number] Implanted:Qty: 1 on 12/28/2022 by Jose Mittal MD at OR [facility] Right: Eye [employer]OM[employer] 09/07/2027 [id number] / [id number] / [id number] documented as of this encounter Results * CT CHEST WO CONTRAST (10/06/2023 7:52 AM EDT) Anatomical Region Laterality Modality Chest, Body, Cardio Computed Yuri ography 10/06/2023 7:38 AM EDT Impressions 10/09/2023 12:02 AM EDT IMPRESSION: 1. There is ectasia of the ascending [...] optional CT Chest at 12 months. (Reference: Gracie). REFERENCES: Gracie Pereyra, et al. Guidelines for Management of Incidental Pulmonary Nodules Detected on CT Images: From the Fleischner Society 2017. Radiology. 2017;284(1):228-243. THIS DOCUMENT HAS BEEN ELECTRONICALLY SIGNED BY TIMUR JACKSON MD Narrative 10/09/2023 12:02 AM EDT PROCEDURE INFORMATION: Exam: CT Chest Without Contrast; Diagnostic Exam date and time: 10/06/2023 7:38 AM Age: 73 years old Clinical indication: Atherosclerotic heart disease of [place] coronary artery without angina pectoris; Abnormal findings on diagnostic imaging of other specified body structures; Additional info: Atherosclerosis with ectasia vs aortic aneurysm on chest x-ray TECHNIQUE: Imaging protocol: Diagnostic computed tomography of the chest without contrast. Radiation optimization: All CT scans at this facility use at least one of these dose optimization techniques: automated exposure control; mA and/or kV adjustment per patient size (includes targeted exams where dose is matched to clinical indication); or iterative reconstruction. COMPARISON: 1. CR CHEST PA 09/30/2023 11:46 AM 2. US AAA SCREEN, RADIOLOGY 05/17/2018 8:33 AM FINDINGS: Lungs: There are small pulmonary nodules such as a 6 mm nodule (image 198 series 9) and a 4 mm left upper lobe subpleural nodule (image 78 series 9). Fleischner Society guidelines for follow-up are detailed below. Pleural spaces: Pleural surfaces are smooth, and there are no pleural effusions, pneumothoraces, or pleural plaques noted. Heart: The heart size is within normal limits, and the pericardium appears clear with no signs of pericardial effusion or thickening. Coronary arteries: The coronary arteries are not well-visualized in this non-gated study, but nosignificant calcification is seen. Mediastinal space: The mediastinum appears unremarkable with no evidence of masses, lymphadenopathy, or mediastinal widening. Hilar structures including the major bronchi and vessels appear intact. Lymph nodes: Unremarkable. No enlarged lymph nodes. Vasculature: There is a bovine configuration of the aortic arch. There is ectasia of the ascending thoracic aorta which measures up to 4.8 cm. Bones/joints: Osseous structures within the field of view, including the ribs and the visualized portions of the thoracic spine, are normal in appearance. There is no evidence of acute fractures, lytic lesions, or sclerotic foci. The osseous structures appear age-appropriate, with no abnormal curvature or deformity. Soft tissues: Unremarkable. Procedure Note Timur Jackson MD - 10/09/2023 PROCEDURE INFORMATION: Exam: CT Chest Without Contrast; Diagnostic Exam date and time: 10/06/2023 7:38 AM Age: 73 years old Clinical indication: Atherosclerotic heart disease of [place] coronaryartery without angina pectoris; Abnormal findings on diagnostic imaging of other specified body structures; Additional info: Atherosclerosis with ectasiavs aortic aneurysm on chest x-ray TECHNIQUE: Imaging protocol: Diagnostic computed tomography of the chest withoutcontrast. Radiation optimization: All CT scans at this facility use at least one ofthese dose optimization techniques: automated exposure control; mA and/or kV adjustment per patient size (includes targeted exams where dose is matchedto clinical indication); or iterative reconstruction. COMPARISON: 1. CR CHEST PA 09/30/2023 11:46 AM 2. US AAA SCREEN, RADIOLOGY 05/17/2018 8:33 AM FINDINGS: Lungs: There are small pulmonary nodules such as a 6 mm nodule (image 198 series 9) and a 4 mm left upper lobe subpleural nodule (image 78 series9). Fleischner Society guidelines for follow-up are detailed below. Pleural spaces: Pleural surfaces are smooth, and there are no pleural effusions, pneumothoraces, or pleural plaques noted. Heart: The heart size is within normal limits, and the pericardium appears clear with no signs of pericardial effusion or thickening. Coronary arteries: The coronary arteries are not well-visualized in this non-gated study, but nosignificant calcification is seen. Mediastinal space: The mediastinum appears unremarkable with no evidenceof masses, lymphadenopathy, or mediastinal widening. Hilar structuresincluding the major bronchi and vessels appear intact. Lymph nodes: Unremarkable. No enlarged lymph nodes. Vasculature: There is a bovine configuration of the aortic arch. There is ectasia of the ascending thoracic aorta which measures up to 4.8 cm. Bones/joints: Osseous structures within the field of view, including theribs and the visualized portions of the thoracic spine, are normal inappearance. There is no evidence of acute fractures, lytic lesions, or sclerotic foci.The osseous structures appear age-appropriate, with no abnormal curvature or deformity. Soft tissues: Unremarkable. IMPRESSION IMPRESSION: 1. There is ectasia of the ascending thoracic aorta which measures up to4.8 cm. 2. Solid pulmonary nodules measuring less than 6 mm. For patients at lowrisk (minimal or absent history of smoking and of other known risk factors), no routine follow-up is indicated. For patients at high risk (history ofsmoking or of other known risk factors), consider optional CT Chest at 12 months. (Reference: Gracie). REFERENCES: Gracie H, et al. Guidelines for Management of Incidental PulmonaryNodules Detected on CT Images: From the Fleischner Society 2017. Radiology. 2017;284(1):228-243. THIS DOCUMENT HAS BEEN ELECTRONICALLY SIGNED BY TIMUR JACKSON MD Gabriela Rangel MD RAD CT documented in this encounter Visit Diagnoses Diagnosis Atherosclerosis of [place] coronary artery of [place] heart without angina pectoris- Primary Abnormal chest x-ray Other nonspecific abnormal finding of lung field Pulmonary nodule Solitary pulmonary nodule Atherosclerosis of [place] coronary artery of [place] heart without angina pectoris Abnormal chest x-ray Other nonspecific abnormal finding of lung field documented in this encounter Advance Directives * [...] Power of Attor josh? No Care Teams Lumber Material Handler Relationship Specialty Start Date End Date Gabriela Rangel MD [address] [place] [address] PCP - General Internal Medicine 10/05/23 documented as of this encounter
--- OUTSIDE RECORDS SUMMARY | 2024-02-06 06:36 | External Medical Summary | Summary of Care ---
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) Gabriela Rangel MD [address] [place] [address] [place] [address] Phone: tel: fax: Referral ID Status Reason Start Date Expiration Date Visits Requested Visits Authorized [id number] Authorized Specialty Services Required 4 999 999 [...] 12/30/2023 Telephone General Internal Medicine [facility] [place] [address] [facility] [place] [address] Gabriela Rangel MD [address] [facility] [place] [address] Test Results Allergies Active Allergy Reactions Criticality Noted Date Comments Lactose Intolerance 01/29/2008 Nsaids Other (Please comment) 01/29/2008 Internal bleeding documented as of this encounter (statuses as of 12/30/2023) Medications MULTIVITAL-M PO TABS 05/03/2013 Active Vitamin [...] MG Oral Tablet ChewableIndicat ions:Atheroscle rosis of [place] coronary artery of [place] heart without angina pectoris Take 1 Tablet by mouth in the morning. with food.. 100 Tablet 5 10/31/2023 Active Atorvastatin Calcium 20 MG Oral Tablet (Lipitor)Indica tions:Atheroscl erosis of [place] coronary artery of [place] heart without angina pectoris Take 1 Tablet [...] as of this encounter (statuses as of 12/30/2023) Active Problems Problem Noted Date Diagnosed Date [...] as of this encounter (statuses as of 12/30/2023) Resolved Problems Problem Noted Date Diagnosed Date Resolved Date Prediabetes 03/22/2017 02/24/2018 Overview: Per Prediabetes protocol #1 Hearing loss 05/03/2012 02/13/2018 ADVANCE DIRECTIVE INFORMATION 01/25/2012 12/12/2023 Hemorrhoids, external without complications 01/29/2008 12/22/2016 documented as of this encounter (statuses as of 12/30/2023) Immunizations Name Administration Dates Next Due COVID-19 mRNA, LNP-s, No Pre serve, 2-Dose Series ([employer]) 05/22/2021,04/30/2020,04/04/2020 HEP A - Hepatitis A (Adult [...] encounter Miscellaneous Notes * Telephone Encounter - Cydney Ramírez RN [...] 08/03/2024 3:45 PM EDT Office Visit Dermatology [facility] [address] [facility] [place] [address] Darin Tolbert MD [address] [facility] [place] [address] 10/12/2024 9:00 AM EDT Imaging Radiology [facility] [address] [facility] [address] [facility] [place] [address] Scheduled Orders Name Type Priority Associated Diagnoses Orde r Schedule BASIC METABOLIC PANEL Lab Routine 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) Expected: 01/06/2024, Expires: 12/29/2024 BNP, NT-PRO Lab Routine 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) Expected: 01/06/2024, Expires: 12/29/2024 Scheduled Procedures Name Priority Associated Diagnoses Date/Ti [...] this encounter Medical Devices Implanted Type Area Airline Pilot Flight Instructor Device Identifier Shelf Expiration Date Model / Serial / Lot Lens Li61ao 13.00mm 21.00 - [id number] - [id number] Implanted:Qty: 1 on 12/21/2022 by Jose Mittal MD at OR [facility] Left: Eye [employer] 07/08/2027 [id number] / [id number] / [id number] Lens Li61ao 13.00mm 20.50 - [id number] - [id number] Implanted:Qty: 1 on 12/28/2022 by Jose Mittal MD at OR [facility] Right: Eye [employer]OM[employer] 09/07/2027 [id number] / [id number] / [id number] documented as of this encounter Visit Diagnoses [...] Power of Attor josh? No Care Teams Senior Pensions Administrator Relationship Specialty Start Date End Date Gabriela Rangel MD [address] [place] [address] PCP - General Internal Medicine 10/05/23 documented as of this encounter
--- OUTSIDE RECORDS SUMMARY | 2024-02-06 06:37 | External Medical Summary | Summary of Care ---
Author Name Unknown Organization [facility] Address [address] [place] [address] Phone [phone] Care Team Providers Care Auto Fleet Maintenance Manager Name Role Phone Vick HALE MD, Abdullahi Mcleod Primary Care Provider [phone] Reason for Visit * Reason Comments Blood Pressure Check Encounter Details Date Type Department Care Team (Late st Contact Info) Description 09/29/2023 6:40 PM EDT Office Visit General Internal Medicine [facility] [address] [place] [address] Gabriela Rangel MD [address] [place] [address] HTN, goal below 140/90*; VALDES (dyspnea on exertion); Generalized edema; Crohn's disease of large intestine without complication (HCC) Allergies Active Allergy Reactions Criticality Noted Date Comments Salicylates Other (Please comment) 05/12/2010 Internal bleeding Lactose Intolerance 01/29/2008 Nsaids Other (Please comment) 01/29/2008 Internal bleeding documented as of this encounter (statuses as of 10/07/2023) Medications Medication Sig Dispensed Refills Start Date End Date Status MULTIVITAL-M PO TABS 05/03/2013 Active Vitamin B Complex-C Oral Capsule Take 1 Capsule by mouth in the morning. 30 Capsule 04/28/2022 Active amLODIPine Besylate 2.5 MG Oral Tablet (Norvasc) Take 1 Tablet by mouth in the morning. Active Valsartan 320 MG Oral Tablet (Diovan)Indicati ons:HTN, goal below 140/90 Take 1 Tablet by mouth in the morning. 90 Tablet 1 09/29/2023 Active Vitamin D 25 MCG (1000 UT) Oral Tablet Take by mouth . 4 Discontinued(Keila ent preference/discon tinuation) NATURAL SUPPLEMENT Takes two 200mg coq 10 tabs 60 mg 04/28/2022 4 Discontinued(Keila ent preference/discon tinuation) Fluticasone Propionate 50 MCG/ACT Nasal Suspension (Flonase) SPRAY 2 SPRAYS INTO EACH NOSTRIL EVERY DAY 48 mL 1 04/04/2023 4 Discontinued amLODIPine Besylate 5 MG Oral Tablet (Norvasc) Take 1 Tablet by mouth in the morning. 90 Tablet 3 08/24/2023 4 Discontinued(End of Procedure) documented as of this encounter (statuses as of 10/07/2023) Active Problems Problem Noted Date Diagnosed Date [...] as of this encounter (statuses as of 10/07/2023) Resolved Problems Problem Noted Date Diagnosed Date Resolved Date Prediabetes 03/22/2017 02/24/2018 Overview: Per Prediabetes protocol #1 Hearing loss 05/03/2012 02/13/2018 Hemorrhoids, external without complications 01/29/2008 12/22/2016 documented as of this encounter (statuses as of 10/07/2023) Immunizations Name Administration Dates Next Due COVID-19 mRNA, LNP-s, No Pre serve, 2-Dose Series (Melophone) 05/22/2021,04/30/2020,04/04/2020 HEP A - Hepatitis A (Adult [...] Sign Reading Time Taken Comments Blood Pressure 132/86 09/29/2023 6:46 PM EDT Pulse 88 09/29/2023 6:46 PM EDT Temperature 37.1 C (98.8 F) 09/29/2023 6:46 PM ED T Respiratory Rate 14 09/29/2023 6:46 PM EDT Oxygen Saturation 96% 09/29/2023 6:46 PM EDT Inhaled Oxygen Concentration - - Weight 105.9 kg (233 lb 8 oz) 09/29/2023 6:46 PM EDT Height 177.8 cm (5' 10") 09/29/2023 6:46 PM EDT Body Mass Index 33.5 09/29/2023 6:46 PM EDT documented in this encounter Progress Notes * Gabriela Rangel MD - 09/29/2023 6:53 PM EDT Images from the original note were not included. History of Present Illness Roberto Moore is a 73 year old male that presents for Blood Pressure Check Patient has a history of hypertension for a long time was on different medications including hydrochlorothiazide different kind of ACEI and on valsartan and was doing okay except lately that blood pressures been running high so he was switched from valsartan to amlodipine 2.5 mg 1st it was better bu t not under control so increase to 5 mg since when he started to notice leg swelling. Upon questioning also has some shortness of breath with climbing stairs and going up hill but no chest pain. Never has echo or stress echo done before. No history of lung disease or heart failure butno chest x-ray available Hypertension This is a chronic problem. The current episode started more than 1 month ago. The problem has been waxing and waning since onset. The problem is uncontrolled. Associated symptoms include peripheral edema and shortness of breath. Pertinent negatives include no chest pain, orthopnea, palpitations or sweats. There are no associated agents to hypertension. Risk factors for coronary artery disease incl ude male gender, obesity and family history. Past treatments include VERNELL inhibitors and calcium channel blockers. Improvement on treatment: Not completely controlled with valsartan and went switch toamlodipine under control but developed leg swelling. Compliance problems include medication side effects. There is no history of angina, kidney disease, CVA, heart failure or PVD. Physical Exam Vitals: 09/29/23 1846 Temp: 37.1 C (98.8 F) Pulse: 88 Resp: 14 SpO2: 96% BP: 132/86 BMI: 33.5 Physical Exam Vitals and nursing note reviewed. Constitutional: General: He is not in acute distress. Appearance: He is normal weight. HENT: Head: Normocephalic. Cardiovascular: Rate and Rhythm: Normal rate and regular rhythm. Pulmonary: Effort: Pulmonary effort is normal. No respiratory distress. Breath sounds: No wheezing. Abdominal: General: Bowel sounds are normal. There is no distension. Palpations: Abdomen is soft. There is no mass. Musculoskeletal: General: No swelling, tenderness or signs of injury. Cervical back: Neck supple. No rigidity. Right lower leg: Edema present. Left lower leg: Edema present. Skin: General: Skin is warm. Findings: No lesion or rash. Neurological: Mental Status: He is alert. I have reviewed the following results: CMP Assessment and Plan HTN, goal below 140/90 - Valsartan 320 MG Oral Tablet (Diovan); Take 1 Tablet by mouth in the morning. Resumed Also take amlodipine 2.5 mg daily VALDES (dyspnea on exertion) We will rule out heart failure or angina equivalent if continues - CBC WITH WBC DIFFERENTIAL AND ANEMIA REFLEX WORKUP; Future - BASIC METABOLIC PANEL; Future - XR CHEST 2 VIEWS; Future Generalized edema Likely from amlodipine but need to rule out heart failure - BASIC METABOLIC PANEL; Future - XR CHEST 2 VIEWS; Future Crohn's disease of large intestine without complication (HCC) Wrap-Up Time: I spent a total of 30-39 minutes (exact time 35 mins) on the date of service in preparation, delivery, and documentation of the care provided to Roberto Moore excluding any time spent in the performance of separately billed services. documented in this encounter Nursing Notes * Jasmyne Mcguire MED ASSIST - 09/29/2023 6:48 PM EDT Patient was at the eye doctor and his blood pressure was extremely elevated. Was previously on amlodipine 5mg and 2.5 mg. Then stopped due to swelling and not feeling well. He restarted the 5mg and 2.5mg 2 days ago. documented in this encounter Plan of Treatment Upcoming Encounters Date Type Department Care Team (Late st Contact Info) Description 11/15/2023 9:40 AM EDT Office Visit General Internal Medicine [facility] [place] [address] [place] [address] Gabriela Rangel MD [address] [place] [address] 08/03/2024 3:45 PM EDT Office Visit Dermatology [facility] [place] [address] [facility] [place] [address] Darin Tolbert MD [address] [place] [address] Scheduled Procedures Name Priority Associated Diagnoses Date/Ti me COLONOSCOPY FLEXIBLE PROXIMAL DIAGNOSTIC Recall Crohn's disease (HCC) Health Maintenance Due Date Last Done Comments Adult Wellness Visit 06/06/2019 06/05/2018 COVID-19 Vaccine ( season) 2022 05/22/2021, 04/30/2020, 04/04/2020 Influenza Vaccine (FLU shot) [...] this encounter Medical Devices Implanted Type Area Avionics Safety Inspector Device Identifier Shelf Expiration Date Model / Serial / Lot Lens Li61ao 13.00mm 21.00 - [id number] - [id number] Implanted:Qty: 1 on 12/21/2022 by Jose Mittal MD at OR [facility] Left: Eye BAUSCH [employer] LOMB 07/08/2027 [id number] / [id number] / [id number] Lens Li61ao 13.00mm 20.50 - [id number] - [id number] Implanted:Qty: 1 on 12/28/2022 by Jose Mittal MD at OR [facility] Right: Eye BAUSCH [employer] LOMB 09/07/2027 [id number] / [id number] / [id number] documented as of this encounter Results * (ABNORMAL) BASIC METABOLIC PANEL (10/03/2023 10:27 AM EDT) BUN 27(H) 6 - 20 mg/dL 10/03/2023 11:51 AM EDT [address] Creatinine 1.0 0.6 - 1.2 mg/dL 10/03/2023 11:51 AM EDT [place] [address]- Estimated Glomerular Filtration Rate 78 >=60 mL/min 10/03/2023 11:51 AM T [facility] 56 Comment:eGFR is calculated b ased on the CKD-EPI 2020 equation. Sodium 141 135 - 146 mmol/L 10/03/2023 11:51 AM EDT [facility] 56- Potassium 4.2 3.5 - 5.1 mmol/L 10/03/2023 11:51 AM EDT [facility] 56- Chloride 106 98 - 107 mmol/L 10/03/2023 11:51 AM EDT [facility] 56- CO2 24 22 - 32 mmol/L 10/03/2023 11:51 AM EDT [facility] 56- Anion Gap 11 7 - 15 mmol/L 10/03/2023 11:51 AM EDT [facility] 56- Glucose 97 70 - 120 mg/dL 10/03/2023 11:51 AM EDT [facility] 56- Calcium 9.4 8.4 - 10.2 mg/dL 10/03/2023 11:51 AM T [facility] 56- Blood Venous blood specimen / Unknown Venipuncture / Unknown 10/03/2023 10:27 AM EDT 10/03/2023 10:29 AM EDT Gabriela Rangel MD LAB BLOOD ORDERABLES [facility] [address] [place] [address] * XR CHEST 2 VIEWS (09/30/2023 11:52 AM EDT) Anatomical Region Laterality Modality Chest Computed Radiogr aphy 09/30/2023 2:34 PM EDT Impressions 09/30/2023 2:31 PM EDT IMPRESSION 1. No pulmonary infiltrate. 2. Aortic atherosclerosis and ectasia or aneurysmal dilation. Consider further evaluation with nonurgent chest CT. Narrative 09/30/2023 2:31 PM EDT EXAM XR CHEST 2 VIEWS - 09/30/2023 11:52 am HISTORY "edema and VALDES" TECHNIQUE Frontal and lateral views of the chest were obtained. COMPARISON None. FINDINGS No pneumothorax. No pleural effusion. Eventration of right hemidiaphragm. No pulmonary infiltrate. Cardiac silhouette is not enlarged. Aortic atherosclerosis and ectasia or aneurysmal dilation. Procedure Note Ez Fletcher MD - 09/30/2023 EXAM XR CHEST 2 VIEWS - 09/30/2023 11:52 am HISTORY "edema and VALDES" TECHNIQUE Frontal and lateral views of the chest were obtained. COMPARISON None. FINDINGS No pneumothorax. No pleural effusion. Eventration of righthemidiaphragm. No pulmonary infiltrate. Cardiac silhouette is notenlarged. Aortic atherosclerosis and ectasia or aneurysmal dilation. IMPRESSION IMPRESSION 1. No pulmonary infiltrate. 2. Aortic atherosclerosis and ectasia or aneurysmal dilation. Considerfurther evaluation with nonurgent chest CT. Gabriela Rangel MD RADIOLOGY (RAD GENER AL) documented in this encounter Visit Diagnoses Diagnosis HTN, goal below 140/90- Primary Unspecified essential hypertension VALDES (dyspnea on exertion) Other dyspnea and respiratory abnormality Generalized edema Edema Crohn's disease of large intestine without complication (HCC) Regional enteritis of large intestine Generalized edema Edema VALDES (dyspnea on exertion) Other dyspnea and respiratory abnormality documented in [...] Power of Attor josh? No Care Teams Auto Fleet Maintenance Manager Relationship Specialty Start Date End Date Abdullahi Hickman III, MD [address] [place] [address] PCP - General Family Medicine 05/17/18 10/04/23 documented as of this encounter
--- OUTSIDE RECORDS SUMMARY | 2024-02-06 06:37 | External Medical Summary | Summary of Care ---
Author Name Unknown Organization [facility] Address [address] [place] [address] Phone [phone] Care Team Providers Care Procurement Director Name Role Phone Gabriela Rangel MD Primary Care Provider [phone] Reason for Visit * Reason Comments eRx-Medication Refill Encounter Details Date Type Department Care Team (Late st Contact Info) Description 10/06/2023 Refill Family Practice [facility] [address] [place] [address] Bebo Lamb III, MD [address] [place] [address] Allergies Active Allergy Reactions Criticality Noted Date [...] MG Oral Tablet (Lipitor)Indicati ons:Atheroscleros is of [place] coronary artery of [place] heart without angina pectoris Take 1 Tablet by mouth in the morning. 30 Tablet 5 10/04/2023 Active Fluticasone Propionate 50 MCG/ACT Nasal Suspension (Flonase) SPRAY 2 SPRAYS INTO EACH NOSTRIL EVERY DAY 48 mL 1 10/07/2023 Active Fluticasone Propionate 50 MCG/ACT Nasal Suspension [...] mRNA, LNP-s, No Pre serve, 2-Dose Series (EaglEyeMed) 05/22/2021,04/30/2020,04/04/2020 HEP A - Hepatitis A (Adult [...] encounter Miscellaneous Notes * Telephone Encounter - Sherin Costa RPh - 10/07/2023 9:56 AM EDTSigned Prescriptions: Disp Refills Fluticasone Propionate 50 MCG/ACT Nasal Braun*48 mL 1 Sig: SPRAY 2 SPRAYS INTO EACH NOSTRIL EVERY DAYAuthorizing Provider: BEBO LAMB III User: SHERIN COSTA documented in this encounter Plan of Treatment Upcoming Encounters Date Type Department Care Team (Late st Contact Info) Description 11/15/2023 9:40 AM EDT Office Visit General Internal [facility] [place] [address] [facility] [place] [address] Gabriela Rangel MD [address] [facility] [place] [address] 08/03/2024 3:45 PM EDT Office Visit Dermat[facility] [place] [address] [facility] [place] [address] Darin Tolbert MD 200 [facility] [place] [address] Scheduled Procedures Name Priority Associated Diagnoses Date/Ti [...] this encounter Medical Devices Implanted Type Area In Process Inspector Device Identifier Shelf Expiration Date Model / Serial / Lot Lens Li61ao 13.00mm 21.00 - [id number] - [id number] Implanted:Qty: 1 on 12/21/2022 by Jose Mittal MD at OR [facility] Left: Eye BAUSCH [employer] LOMB 07/08/2027 [id number] / [id number] / [id number] Lens Li61ao 13.00mm 20.50 - [id number] - [id number] Implanted:Qty: 1 on 12/28/2022 by Jose Mittal MD at OR [facility] Right: Eye BAUSCH [employer] LOMB 09/07/2027 [id number] / [id number] / [id number] documented as of this encounter Advance Directives [...] Power of Attor josh? No Care Teams Procurement Director Relationship Specialty Start Date End Date Gabriela Rangel MD [address] [facility] [address] PCP - General Internal Medicine 10/05/23 documented as of this encounter
--- OUTSIDE RECORDS SUMMARY | 2024-02-06 06:37 | External Medical Summary ---
Author Name Unknown Address Unknown Organization K01:[facility] [place] [address] [facility] [address] Laboratory Report Ordering Provider Test Date Status BRIAN RAYMOND 10/03/2023 10:27:08 Final Observation Date Value Abnormality Reference (Units ) Status SYNC LEUKOCYTES IN BLOOD BY AUTOMATED COUNT 10/03/2023 10:27:08 8.01 4.00-10.80 (K/uL) Final Segs 10/03/2023 10:27:08 63.2 40.0-75.0 (%) Final Lymphs % 10/03/2023 10:27:08 24.6 18.0-42.0 (%) Final Monos 10/03/2023 10:27:08 7.5 1.0-11.0 (%) Final Eosinophils 10/03/2023 10:27:08 3.1 0.0-6.0 (%) Final Basos 10/03/2023 10:27:08 0.5 0.0-2.0 (%) Final Immature Granulocyte, Percent 10/03/2023 10:27:08 1.1 0.0-2.0 (%) Final Absolute Segs 10/03/2023 10:27:08 5.06 1.80-7.70 (K/uL) Final Lymphs, absolute 10/03/2023 10:27:08 1.97 1.00-4.80 (K/ul) Final Monos, Abs 10/03/2023 10:27:08 0.60 0.00-1.10 (K/uL) Final Eos, Abs 10/03/2023 10:27:08 0.25 0.00-0.70 (K/uL) Final Basos, Abs 10/03/2023 10:27:08 0.04 0.00-0.20 (K/uL) Final Immature Granulocytes, Number 10/03/2023 10:27:08 0.09 0.00-0.20 (K/uL) Final Performing Location [facility] [place] [address] [facility] [address]
--- OUTSIDE RECORDS SUMMARY | 2024-02-06 06:37 | External Medical Summary | Summary of Care ---
Author Name Unknown Organization [facility] Address [address] [place] [address] Phone [phone] Care Team Providers Care Oil Derrick Operator Name Role Phone Vick HALE MD, Abdullahi Mcleod Primary Care Provider [phone] Encounter Details Date Type Department Care Team (Late st Contact Info) Description 10/03/2023 Orders Only PATIENT PORTAL DO NOT DELETE THIS DEPT USED BY [place] [address] Allergies Active Allergy Reactions Criticality Noted Date Comments Salicylates Other (Please comment) 05/12/2010 Internal bleeding Lactose Intolerance 01/29/2008 Nsaids Other (Please comment) 01/29/2008 Internal bleeding documented as of this encounter (statuses as of 10/03/2023) Medications Medication Sig Dispensed Refills Start Date End Date Status MULTIVITAL-M PO TABS 05/03/2013 Active Vitamin B Complex-C Oral Capsule Take 1 Capsule by mouth in the morning. 30 Capsule 04/28/2022 Active Fluticasone Propionate 50 MCG/ACT Nasal Suspension (Flonase) SPRAY 2 SPRAYS INTO EACH NOSTRIL EVERY DAY 48 mL 1 04/04/2023 Active Additional Information Patient taking differently: 2 [place] Nasal Daily(AM), Indications: as needed, Reported on 05/31/2023 amLODIPine Besylate 2.5 MG Oral Tablet (Norvasc) Take 1 Tablet by mouth in the morning. Active Valsartan 320 MG Oral Tablet (Diovan)Indication s:HTN, goal below 140/90 Take 1 Tablet by mouth in the morning. 90 Tablet 1 09/29/2023 Active documented as of this encounter (statuses as of 10/03/2023) Active Problems Problem Noted Date Diagnosed Date [...] as of this encounter (statuses as of 10/03/2023) Resolved Problems Problem Noted Date Diagnosed Date Resolved Date Prediabetes 03/22/2017 02/24/2018 Overview: Per Prediabetes protocol #1 Hearing loss 05/03/2012 02/13/2018 Hemorrhoids, external without complications 01/29/2008 12/22/2016 documented as of this encounter (statuses as of 10/03/2023) Immunizations Name Administration Dates Next Due COVID-19 mRNA, LNP-s, No Pre serve, 2-Dose Series (Smart Wire Grid) 05/22/2021,04/30/2020,04/04/2020 HEP A - Hepatitis A (Adult > 18 yrs) 02/22/2017 Pneumococcal Conjugate Vacc, 13 Valent (Prevnar) 05/06/2014 Pneumococcal Polysaccharide PPV23 (Pneumovax) 08/08/2017,05/03/2012 Season Influenza, Quad, PF, Adjuvanted, 65+ Yrs, IM (FLUAD) 10/23/2019 Seasonal Influenza Virus Vac cine, Unspecified Formulation 11/08/2019,10/29/2018 Seasonal Influenza, PF, 6 M & above, IM , (FluLaval or Fluzone) 10/21/2020,02/13/2018,12/22/2016 Seasonal Influenza, Quadriva lent, No Preserve, IM 11/13/2015,11/07/2014 Seasonal Influenza, Split, I IV3, With Preserve, Inj 11/05/2013,11/03/2012,05/03/2012,11/21,11/08/2007 Seasonal Influenza, Trivalen t, High Dose, No Preserve, IM 12/12/2018 TDAP (age 10 and older)(Boostrix) 07/26/2018 TDAP, [...] Care Team (Late st Contact Info) Description 11/09/2023 8:40 AM EDT Office Visit Family [facility] [place] [address] Abdullahi Hickman III, MD 200 [facility] [place] [address] 08/03/2024 3:45 PM EDT Office Visit [facility]ermatology [facility] [place] [facility] [place] [address] Darin Tolbert MD 200 [facility] [place] [address] Scheduled Procedures Name Priority Associated Diagnoses Date/Ti me COLONOSCOPY FLEXIBLE PROXIMAL DIAGNOSTIC Recall Crohn's disease (HCC) Health Maintenance Due Date Last Done Comments Adult Wellness Visit 06/06/2019 06/05/2018 COVID-19 Vaccine ( season) 2023 05/22/2021, 04/30/2020, 04/04/2020 Postponed from 10/08/2022 (Patient Declined After Education) Influenza Vaccine (FLU shot) (#1) 2023 10/21/2020, 11/08/2019, 10/23/2019, Additional history exists Depression Screening 12/16/2023 12/15/2022 GFR 05/08/2024 05/09/2023, 04/07, 04/01/2021, Additional history exists Albumin/Creatinine Ratio 04/20/2025 04/20/2022 Colonoscopy 06/05/2026 06/06/2023, 05/09, 04/11/2019, Additional history exists DTaP,Tdap,and Td Vaccines (3 - Td or Tdap) 07/26/2028 [...] this encounter Medical Devices Implanted Type Area Computer Training Specialist Device Identifier Shelf Expiration Date Model / Serial / Lot Lens Li61ao 13.00mm 21.00 - [id number] - [id number] Implanted:Qty: 1 on 12/21/2022 by Jose Mittal MD at OR [facility] Left: Eye BAUSCH [employer] LOMB 07/08/2027 [id number] / [id number] / [id number] Lens Li61ao 13.00mm 20.50 - [id number] - [id number] Implanted:Qty: 1 on 12/28/2022 by Jose Mittal MD at OR [facility] Right: Eye BAUSCH & LOMB 09/07/2027 [id number] / [id number] / [id number] documented as of this encounter Advance Directives [...] Power of Attor josh? No Care Teams Oil Derrick Operator Relationship Specialty Start Date End Date Abdullahi Hickman III, MD [address] [place] [address] PCP - General Family Medicine 05/17/18 documented as of this encounter
--- OUTSIDE RECORDS SUMMARY | 2024-02-06 06:37 | External Medical Summary | Summary of Care ---
Author Name Unknown Organization [facility] Address [address] [place] [address] Phone [phone] Care Team Providers Care Labor And Employment Paralegal Name Role Phone Vick HALE MD, Abdullahi Mcleod Primary Care Provider [phone] Reason for Visit * Reason Comments Outpatient Testing Encounter Details Date Type Department Care Team (Late st Contact Info) Description 10/03/2023 10:30 AM EDT Laboratory Laboratory [facility] [address] [place] [place] [id number] [place], Lab Scenery [address] [facility] [address] VALDES (dyspnea on exertion); Generalized edema Allergies Active Allergy Reactions Criticality Noted Date [...] Active Additional Information Patient taking differently: 2 [place] Nasal Daily(AM), Indications: as needed, Reported on [...] mRNA, LNP-s, No Pre serve, 2-Dose Series (DrinkSendo) 05/22/2021,04/30/2020,04/04/2020 HEP A - Hepatitis A (Adult [...] 8:40 AM EDT Office Visit Family Practice [facility] [address] [place] [address] Abdullahi Hickman III, MD [address] [place] [address] [address] [address] 11/15/2023 9:40 AM EDT Office Visit General Internal Medicine [facility] [address] [place] [address] [address] Gabriela Rangel MD [address] [place] [address] [address] [address] 08/03/2024 3:45 PM EDT Office Visit Dermatology [facility] [place] [address] [place] [address] [address] Darin Tolbert MD [address] [place] [address] [address] [address] Pending Results Name Type Priority Associated Diagnoses Date /Time CBC WITH WBC DIFFERENTIAL AND ANEMIA REFLEX WORKUP Lab Routine VALDES (dyspnea on exertion) 10/03/2023 10:27 AM EDT BASIC METABOLIC PANEL Lab Routine Generalized edema VALDES (dyspnea on exertion) 10/03/2023 10:27 AM EDT ANEMIA CBC Lab Routine VALDES (dyspnea on exertion) 10/03/2023 10:27 AM EDT DIFFERENTIAL, AUTOMATED Lab Routine VALDES (dyspnea on exertion) 10/03/2023 10:27 AM EDT ANEMIA REFLEX CHEMISTRY HOLD Lab Routine VALDES (dyspnea on exertion) 10/03/2023 10:27 AM EDT Scheduled Procedures Name Priority Associated Diagnoses Date/Ti [...] this encounter Medical Devices Implanted Type Area Petrologist Device Identifier Shelf Expiration Date Model / Serial / Lot Lens Li61ao 13.00mm 21.00 - [id number] - [id number] Implanted:Qty: 1 on 12/21/2022 by Jose Mittal MD at OR [facility] Left: Eye BAUSCH & LOMB 07/08/2027 [id number] / [id number] / [id number] Lens Li61ao 13.00mm 20.50 - [id number] - [id number] Implanted:Qty: 1 on 12/28/2022 by Jose Mittal MD at OR [facility] Right: Eye BAUSCH & LOMB 09/07/2027 [id number] / [id number] / [id number] documented as of this encounter Visit Diagnoses Diagnosis VALDES (dyspnea on exertion) Other dyspnea and respiratory abnormality Generalized edema Edema documented in this encounter Advance Directives * [...] Power of Attor josh? No Care Teams Labor And Employment Paralegal Relationship Specialty Start Date End Date Vick III, [facility]i [facility]cleod [facility] [address] PCP - General Family Medicine 05/17/18 documented as of this encounter
--- OUTSIDE RECORDS SUMMARY | 2024-02-06 06:37 | External Medical Summary ---
Author Name Unknown Address Unknown Organization [id number]:[facility] [place] [address] [facility] [address] Laboratory Report Ordering Provider Test Date Status BRIAN RAYMOND 10/03/2023 10:27:08 Final Observation Date Value Abnormality Reference (Units ) Status WBC, Total 10/03/2023 10:27:08 8.01 4.00-10.8 0 (K/uL) Final RBC 10/03/2023 10:27:08 4.95 4.50-5.25 (M/uL) Final Hemoglobin 10/03/2023 10:27:08 15.8 14.0-16.8 (g/dL) Final Anemia reflex testing trigge rs on a HGB < 12.0 for Females and HGB < 13.0 for Males in accordance with the WHO Anemia Guidelines
Anemia reflex testing triggers on a HGB < 12.0 for Females and HGB < 13.0 for Males in accordance with the WHO Anemia Guidelines HCT 10/03/2023 10:27:08 47.4 40.0-48.4 (%) Final MCV 10/03/2023 10:27:08 95.8 82.0-99.5 (fL) Final MCH 10/03/2023 10:27:08 31.9 27.0-34.0 (pg) Final MCHC 10/03/2023 10:27:08 33.3 32.0-36.0 (g/dL) Final RDW 10/03/2023 10:27:08 12.5 11.5-15.5 (%) Final Platelets 10/03/2023 10:27:08 271 140-400 (K /uL) Final MPV 10/03/2023 10:27:08 11.4 6.6-11.1 ( fL) Final Nucleated erythrocytes/100 leukocytes [Ratio] in Blood by Automated count 10/03/2023 10:27:08 0 <=0 (/100 WBCs) Fi [facility] Performing Location [facility] [place] [address] [facility] [address]
--- OUTSIDE RECORDS SUMMARY | 2024-02-06 06:37 | External Medical Summary | Summary of Care ---
Author Name Unknown Organization [facility] Address [address] [place] [address] Phone [phone] Care Team Providers Care Garden Machinery Mechanic Name Role Phone Gabriela Rangel MD Primary Care Provider [phone] Reason for Referral * Precert (Within 10 days (routine)) - Authorized Specialty Diagnoses / Procedures Referred By Contac t Referred To Contact Radiology Diagnoses Atherosclerosis of barrow coronary artery of barrow heart without angina pectoris Abnormal chest x-ray Procedures CT CHEST WO CONTRAST Gabriela Rangel MD [address] [facility] [place] [address] Referral ID Status Reason Start Date Expiration Date V isits Requested Visits Authorized [id number] Authorized 10/04/2023 999 999 Reason for Visit * Reason Onset Date Comments Appointment 10/03/2023 Encounter Details Date Type Department Care Team (Late st Contact Info) Description 10/03/2023 Telephone General Internal Medicine [facility] [place] [address] [place] [address] Gabriela Rangel MD [address] [facility] [place] [address] Appointment Allergies Active Allergy Reactions Criticality Noted Date Comments Salicylates Other (Please comment) 05/12/2010 Internal bleeding Lactose Intolerance 01/29/2008 Nsaids Other (Please comment) 01/29/2008 Internal bleeding documented as of this encounter (statuses as of 10/05/2023) Medications Medication Sig Dispensed Refills Start Date End Date Status MULTIVITAL-M PO TABS 05/03/2013 Active Vitamin B Complex-C Oral Capsule Take 1 Capsule by mouth in the morning. 30 Capsule 04/28/2022 Active Fluticasone Propionate 50 MCG/ACT Nasal Suspension (Flonase) SPRAY 2 SPRAYS INTO EACH NOSTRIL EVERY DAY 48 mL 1 04/04/2023 Active Additional Information Patient taking differently: 2 Shevlin Nasal Daily(AM), Indications: as needed, Reported on 05/31/2023 amLODIPine Besylate 2.5 MG Oral Tablet (Norvasc) Take 1 Tablet by mouth in the morning. Active Valsartan 320 MG Oral Tablet (Diovan)Indication s:HTN, goal below 140/90 Take 1 Tablet by mouth in the morning. 90 Tablet 1 09/29/2023 Active Atorvastatin Calcium 20 MG Oral Tablet (Lipitor)Indicatio ns:Atherosclerosis of barrow coronary artery of barrow heart without angina pectoris Take 1 Tablet by mouth in the morning. 30 Tablet 5 10/04/2023 Active documented as of this encounter (statuses as of 10/05/2023) Active Problems Problem Noted Date Diagnosed Date [...] as of this encounter (statuses as of 10/05/2023) Resolved Problems Problem Noted Date Diagnosed Date Resolved Date Prediabetes 03/22/2017 02/24/2018 Overview: Per Prediabetes protocol #1 Hearing loss 05/03/2012 02/13/2018 Hemorrhoids, external without complications 01/29/2008 12/22/2016 documented as of this encounter (statuses as of 10/05/2023) Immunizations Name Administration Dates Next Due COVID-19 mRNA, LNP-s, No Pre serve, 2-Dose Series (TouchMail) 05/22/2021,04/30/2020,04/04/2020 HEP A - Hepatitis A (Adult [...] Team (Late st Contact Info) Description 10/06/2023 4:30 PM EDT Imaging Radiology [facility] [place] [address] [place] [address] 11/15/2023 9:40 AM EDT Office Visit General Internal Medicine [facility] [address] [facility] [place] [address] Gabriela Rangel MD [address] [facility] [place] [address] 08/03/2024 3:45 PM EDT Office Visit Dermatology [facility] [address] [facility] [place] [address] Darin Tolbert MD [address] [facility] [place] [address] Scheduled Orders Name Type Priority Associated Diagnoses Orde r Schedule COMPREHENSIVE METABOLIC PANEL Lab Routine Atherosclerosis of barrow coronary artery of barrow heart without angina pectoris Expected: 01/04/2024, Expires: 10/03/2024 LIPID PANEL WITH DIRECT LDL IF TG IS HIGH Lab Routine Atherosclerosis of barrow coronary artery of barrow heart without angina pectoris Expected: 01/04/2024, Expires: 10/03/2024 CT CHEST WO CONTRAST Medical Imaging Routine Atherosclerosis of barrow coronary artery of barrow heart without angina pectoris Abnormal chest x-ray Expected: 10/04/2023, Expires: 11/03/2024 Scheduled Procedures Name Priority Associated Diagnoses Date/Ti [...] this encounter Medical Devices Implanted Type Area Etcher Apprentice Photoengraving Device Identifier Shelf Expiration Date Model / Serial / Lot Lens Li61ao 13.00mm 21.00 - [id number] - [id number] Implanted:Qty: 1 on 12/21/2022 by Jose Mittal MD at OR [facility] Left: Eye [employer] 07/08/2027 [id number] / [id number] / [id number] Lens Li61ao 13.00mm 20.50 - [id number] - [id number] Implanted:Qty: 1 on 12/28/2022 by Jose Mittal MD at OR [facility] Right: Eye [employer] 09/07/2027 [id number] / [id number] / [id number] documented as of this encounter Visit Diagnoses Diagnosis Atherosclerosis of barrow coronary artery of barrow heart without angina pectoris- Primary Abnormal chest [...] Power of Attor josh? No Care Teams Garden Machinery Mechanic Relationship Specialty Start Date End Date Gabriela Rangel MD [address] [facility] [place] [address] PCP - General Internal Medicine 10/05/23 documented as of this encounter
--- OUTSIDE RECORDS SUMMARY | 2024-02-06 06:37 | External Medical Summary ---
Author Name Unknown Address Unknown Organization K09:[facility] [place] [address] Laboratory Report Ordering Provider Test Date Status BRIAN RAYMOND 10/03/2023 10:27:08 Final Observation Date Value Abnormality Reference (Units ) Status BUN 10/03/2023 10:27:08 27 Above high normal 6-20 (mg/dL) Final Creatinine 10/03/2023 10:27:08 1.0 0.6-1.2 (mg/dL) Final Glomerular filtration rate/1.73 sq M.predicted [Volume Rate/Area] in Serum, Plasma or Blood by Creatinine-based formula (CKD-EPI) 10/03/2023 10:27:08 78 >=60 (mL/min) Final eGFR is calculated based on the CKD-EPI 2020 equation. Sodium 10/03/2023 10:27:08 141 135-146 (m mol/L) Final Potassium 10/03/2023 10:27:08 4.2 3.5-5.1 (m mol/L) Final Cl 10/03/2023 10:27:08 106 98-107 (mm ol/L) Final CO2 10/03/2023 10:27:08 24 22-32 (mmo l/L) Final Anion gap 10/03/2023 10:27:08 11 7-15 (mmol /L) Final Glucose 10/03/2023 10:27:08 97 70-120 (mg /dL) Final Calcium 10/03/2023 10:27:08 9.4 8.4-10.2 ( mg/dL) Final Performing Location [facility] [place] [address]
[2024-02-06] MEDS ORDERED: PROPOFOL IV EMULSION 10 MG/ML 20 ML VIAL IV ONE (07:06)
[2024-02-06] MEDS ORDERED: PHENYLEPHRINE 100MCG/ML 5ML SYR ONE (07:06)
[2024-02-06] MEDS ORDERED: LIDOCAINE 2% MPF LOCAL 5 ML VIAL ONE (07:07)
[2024-02-06] MEDS ORDERED: ePHEDrine sulfate 50 MG/5 ML SYR ONE (07:07)
[2024-02-06] MEDS ORDERED: ACETAMINOPHEN 325 MG TAB PO PRN (08:19)
--- NOTE | 2024-02-06 08:32 | History & Physical Report ---
Date of Service February 06, 2024 Assessment & Plan (1) Syncope and collapse: (2) Third degree AV block: Plan: * Recurrent syncope with reproduction of his symptoms correlating with pause episode of 13.5 seconds noted on a patient pvc monitor. Episodes of i ntermittent third-degree heart block observed in the setting of underlying conduction system disease including first-degree AV block and bifascicular block (right bundle branch block left anterior fascicular block). * Transesophageal echocardiogram initially scheduled for this morning is going to be postponed pending admission to the telemetry unit for observation and planned ultimate placement of a dual-chamber permanent pacemaker. * Preprocedure lab work including CBC, CMP, coagulation panel and chest x-ray ordered. * Telemetry or equivalent bed requested. * N.p.o. after midnight (3) Aortic valve regurgitation: Plan: * Suspect severe aortic valve regurgitation. * Moderate left ventricular systolic dysfunction noted on recent cardiac MRI, LVEF=34% * Question if this is due to severe aortic regurgitation, underlying coronary heart disease is yet to be excluded (4) Ascending aorta enlargement: Plan: * Moderate aortic root enlargement, 4.6 cm, moderate ascending aorta enlargement, 4.5 cm * After pacemaker placed, anticipate proceeding with transesophageal echocardiogram, future coronary angiography (this admission or as outpatient in the near future) and referral to CT surgery for consideration of aortic valve replacement and aortic root/ascending aorta repair +/- CABG if indicated (5) Hypertension: Plan: * Continue outpatient amlodipine and valsartan Holding off on Pharmacologic DVT prophylaxis in preparation for pacemaker. History of Present Illness Chief Complaint: Syncope, shortness of breath with exertion Primary Care Provider: Gabriela Rangel MD Mr Moore is a 73 year old male who presents today for previously scheduled outpatient transesophageal echocardiogram for the evaluation of aortic valve regurgitation. The patient was initially seen in outpatient cardiology consultation by the undersigned on 01/10/2024 at that time he had described episodes of recurrent syncope as well as shortness of breath with exertion. The episodes of syncope have been present since around 2019 or 2020 as he recalls having the first episode just after he had a COVID booster vaccination. The episodes of syncope are preceded by dizziness and have resulted in multiple falls including instances at home and in public places and while golfing. In evaluation of the symptoms he had undergone a twelve-lead resting EKG on 12/29/2023 that revealed evidence of sinus rhythm with first-degree AV block with KY interval of approximately 240 ms, as well as a bifascicular block (right bundle branch block, left anterior fascicular block QRS duration 160 ms). A transthoracic echocardiogram was performed on 12/29/2023 revealing abnormal septal motion consistent with intraventricular conduction delay with borderline diffuse left ventricular hypokinesis noted otherwise LVEF in the range of 50 to 54%. The aortic valve was trileaflet in morphology and mildly calcified without evidence of aortic stenosis moderate to severe aortic valve regurgitation was noted with an eccentric jet coursing across the anterior mitral valve leaflet. Cardiac MRI performed 01/25/2024 revealed moderate left ventricular systolic dysfunction calculated LVEF 34%. Initial calculations suggested mild aortic valve regurgitation but this has since been reassessed in a multimodality fashion and repeat calculations were consistent with severe aortic valve regurgitation by MRI criteria. The patient was scheduled for an outpatient transesophageal echocardiogram today for further assessment of the aortic valve regurgitation but in the meantime the results of his 2-week Zio patch became available over the weekend. The predominant rhythm was sinus rhythm with average rate of 73 bpm however the patient was noted to have 7 pauses greater than 3 seconds the longest of which was 13.5 seconds in duration and occurred on 01/17/2024 at 9:55 PM and per discussion with the patient today correlated with a syncopal episode at home. Further review of the rhythm strips are consistent with intermittent third- degree AV block with bradycardia down to the 20s premature ventricular contractions were present of moderate frequency, 4.5% PVC burden and subjective symptoms also correlated with the premature ventricular contractions. Although there are 2 episodes of a wide-complex tachycardia that on preliminary review felt to possibly be ventricular tachycardia, QRS morphology and duration looks very similar to the sinus beats and I think this may actually be an SVT in the setting of bifascicular block. Allergies Allergy/AdvReac Type Severity Reaction Status Date / Time NSAIDS (Non-Steroidal Allergy Unknown unknown, Verified 01/31/24 10:12 Anti-Inflamma listed in [facility] EMR Home Medications Medication Instructions Recorded Confirmed Type amlodipine 2.5 mg tablet 2.5 mg PO QAM 01/31/24 01/31/24 History aspirin 81 mg capsule 81 mg PO DAILY 01/31/24 01/31/24 History atorvastatin 20 mg tablet 20 mg PO QAM 01/31/24 01/31/24 History furosemide 20 mg tablet 20 mg PO QAM 01/31/24 01/31/24 History magnesium 200 mg tablet 400 mg PO QPM 01/31/24 01/31/24 History multivit,Ca,min-iron 8 mg-folic 1 tab PO QPM 01/31/24 01/31/24 History acid 200 mcg-lycopene 600 mcg tablet (Centrum Men) potassium chloride 10 mEq 10 meq PO QAM 01/31/24 01/31/24 History capsule,extended release valsartan 320 mg tablet 320 mg PO HS 01/31/24 01/31/24 History vitamin B complex 2 tab PO DAILY 01/31/24 01/31/24 History Past Med/Surg History Problem List (Updated 02/06/24 @ 08:40 by Angel Holliday DO) Ascending aorta enlargement Aortic valve regurgitation had cardiac MRI last week, Dr. Holliday, also had echo recently - [address] Third degree AV block Syncope and collapse Encounter for pre-operative examination Medical History Aortic valve regurgitation had cardiac MRI last week, Dr. Holliday, also had echo recently - [address] History of melanoma (1997) left arm, removed HLD (hyperlipidemia) Hx of Crohn's disease > 30 years ago Hx of lower gastrointestinal bleeding (1985) due to chron's, had 2 units prbc's Hx of vertigo started getting episodes in 2020, where he had "chest pounding" symptoms and dizziness- worked up by pcp and then got new pcp- then got to dr. holliday, currently being worked up Hypertension Peripheral edema more on left side, takes lasix daily Surgical History History of bowel resection (1985) 1.5 foot removed at ileum-cecum removed, due to tumor - benign - History of tonsillectomy and adenoidectomy (1955) Hx of bilateral cataract extraction (2022) Hx of colonoscopy Hx of hernia repair (2013) [facility], several years ago, right inguinal Hx of melanoma excision (1997) left arm, also had ln removed in arm pit Social History Smoking Status: Never smoker Second Hand Exposure: No; Do You Dip or Chew Tobacco: No; Tobacco Cessation Education Requested by Patient: No Hx Alcohol Use: No Hx Substance Use: No Preferred Language: Burkinan Communication Ability: Effective Reimbursement Director Required: No Beliefs That Will Affect Care: None Current Living Situation: Spouse Other Information That Helps Us Care for You: No Feels Safe at Home: Yes Safety Concerns: Feels Safe At This Time Assistive Devices: Glasses Review of Systems Review of Systems: All systems reviewed & are unremarkable except as noted in HPI & below Physical Exam Physical Exam: Temp Pulse Resp BP Pulse Ox O2 Del Method 36.4 C L 64 14 152/95 H 95 Room Air 02/06/24 07:00 02/06/24 07:00 02/06/24 07:00 02/06/24 07:00 02/06/24 07:00 02/06/24 07:00 General: no acute distress and stated age Eyes: conjunctiva are pink and non-injected, sclera clear Neck: normal jugular venous pulse, no hepatojugular reflux Chest: normal shape and normal respiratory effort Lungs: clear to auscultation and percussion Cardiac Exam: - regular heart sounds,2/6 diastolic murmur noted Abdomen: abdomen soft, non-tender, no abnormal masses and no hepatosplenomegaly Musculoskeletal: no gait disturbance, no weakness Extremities: no edema and no cyanosis Neuro:awake, conversant, follows commands, no focal motor deficits Psych: appropriate affect and insight. Code Status & VTE Plan VTE Prophylaxis Plan VTE Prophylaxis will be ordered: No Reason for no VTE drug order: Drug intolerance
[2024-02-06 12:06] LABS: Basophils # (auto) 0.02 K/uL (0.00-0.20); Basophils % (auto) 0.3 %; Eosinophils # (auto) 0.22 K/uL (0.00-0.50); Eosinophils % (auto) 3.5 %; Hematocrit (blood only) 41.3 % (42.0-52.0); Hemoglobin 14.6 g/dl (14.0-18.0); Immature Granulocytes # (auto) 0.01 K/uL (0.01-0.20); Immature Granulocytes % (auto) 0.2 %; Lymphocytes # (auto) 1.06 K/uL (1.20-3.40); Lymphocytes % (auto) 16.9 %; Mean Corpuscular Hemoglobin 32.2 pg (25.0-34.0); Mean Corpuscular Hgb Conc 35.4 g/dL (32.0-36.0); Mean Platelet Volume 10.4 fL (9.4-12.4); Monocytes # (auto) 0.51 K/uL (0.11-0.59); Monocytes % (auto) 8.1 %; Neutrophils # (auto) 4.47 K/uL (1.40-6.50); Platelet Count 213 K/uL (130-400); RDW Coefficient of Variation 12.4 % (11.5-14.5); RDW Standard Deviation 41.1 fL (36.4-46.3); Red Blood Count 4.54 M/uL (4.70-6.10); White Blood Count 6.29 K/ul (4.8-10.8)
[2024-02-06] MEDS: BENZOCAINE/TETRACAIN/BUTAM 50 APPLN/5 GM CAN EXT ONE (12:16)
[2024-02-06] MEDS: amLODIPine BESYLATE 5 MG TAB PO SCH (12:23)
[2024-02-06] MEDS: ATORVASTATIN 20 MG TAB PO SCH (12:24)
[2024-02-06] MEDS: FUROSEMIDE 20 MG TAB PO SCH (12:25)
[2024-02-06] MEDS: VITAMIN B COMPLEX TAB PO SCH (12:26)
[2024-02-06] MEDS: ASPIRIN 81 MG ECTAB PO SCH (12:26)
[2024-02-06 12:27] LABS: Albumin Globulin Ratio 1.3 (0.9-2); Albumin Level 3.8 gm/dl (3.4-5.0); BUN Creatinine Ratio 32.2 (10-20); Bilirubin,Total 0.6 mg/dl (0.2-1.0); Creatinine Clr Calc Pharmacy 89.7 ml/min; Total Protein 6.8 gm/dl (6.0-8.3)
[2024-02-06 12:39] LABS: INR 1.1 (0.9-1.1); Partial Thromboplastin Time 27 Seconds (21-31); Prothrombin Time 11.6 Seconds (9.0-12.0)
--- NOTE | 2024-02-06 13:36 | XRay Report ---
XR chest 2V PA/lateral CLINICAL HISTORY: syncope, third degree AV block COMPARISON STUDY: No previous studies for comparison. FINDINGS: No pneumothorax or pleural effusion is present. The heart is mildly enlarged. There is mild elevation/eventration of the right hemidiaphragm. There is no consolidation to suggest pneumonia. IMPRESSION: No acute cardiopulmonary findings. Mild cardiomegaly. ACT 112: Negative or not required by law. Electronically signed by: Ezra Cortes M.D. 02/06/2024 1:35 PM
--- NOTE | 2024-02-06 15:04 | Electrocardiogram Report ---
Test Reason : Blood Pressure : */* mmHG Vent. Rate : 65 BPM Atrial Rate : 65 BPM P-R Int : 400 ms QRS Dur : 170 ms QT Int : 464 ms P-R-T Axes : 24 -70 106 degrees QTcB Int : 482 ms Sinus rhythm with 1st degree A-V block Right bundle branch block Left anterior fascicular block Bifascicular block Left ventricular hypertrophy with repolarization abnormality Abnormal ECG No previous ECGs available Confirmed by Lance Kitchen ([id number]) on 02/06/2024 3:04:10 PM Referred By: Angel Gooden Confirmed By: Lance Kitchen
[2024-02-06] MEDS: MULTIVITAMIN TAB PO SCH (20:43)
[2024-02-06] MEDS: VALSARTAN 80 MG TAB PO SCH (20:43)
--- NOTE | 2024-02-07 10:26 | History & Physical Bridge Note ---
Date of Service February 07, 2024 History & Physical Bridge Note I have examined the patient, reviewed the History & Physical and in the interval since the performance of the History & Physical I have noted the following changes of clinical significance: pt with TBS and sinus pauses recommended a pacemaker prior to hospital discharge; discussed the procedure and potential risks with the pt he expressed an understanding and consents signed.
--- NOTE | 2024-02-07 10:27 | Pre Anesthesia Assessment ---
Date of Service February 07, 2024 Pre Sedation Assessment Vital Signs Temp Pulse Pulse Resp BP BP BP 02/07/24 10:24 76 18 154/82 H 02/07/24 10:09 72 17 02/07/24 09:09 82 23 02/07/24 08:15 80 18 02/07/24 08:03 71 27 H 02/07/24 08:02 160/93 H 02/07/24 08:00 89 02/07/24 07:47 142/87 H 02/07/24 07:27 68 16 02/07/24 07:15 58 L 14 02/07/24 07:00 62 4 L 02/07/24 06:51 71 10 L 02/07/24 06:33 66 16 02/07/24 06:21 72 13 02/07/24 06:09 100 H 20 02/07/24 05:45 67 14 02/07/24 05:39 70 19 02/07/24 05:24 62 16 02/07/24 05:00 56 L 19 02/07/24 04:48 62 15 02/07/24 04:30 67 12 02/07/24 04:18 81 8 L 02/07/24 04:03 63 10 L 02/07/24 03:48 60 9 L 02/07/24 03:34 36.4 C L 75 16 141/73 H 02/07/24 03:18 72 15 02/07/24 03:03 64 20 02/07/24 02:48 68 12 02/07/24 02:39 71 12 02/07/24 02:06 63 16 02/07/24 01:57 69 15 02/07/24 01:03 71 12 02/07/24 00:51 75 12 02/07/24 00:30 66 14 02/07/24 00:18 70 15 02/07/24 00:06 141/67 H 02/07/24 00:03 68 22 02/07/24 00:00 64 02/07/24 00:00 36.5 C 69 14 141/67 H 02/06/24 23:51 66 14 02/06/24 23:27 64 20 02/06/24 23:03 62 6 L 02/06/24 22:48 65 19 02/06/24 22:39 71 25 H 02/06/24 22:06 83 24 02/06/24 21:48 72 15 02/06/24 21:30 76 17 02/06/24 21:27 79 13 02/06/24 20:51 92 H 22 02/06/24 20:36 94 H 23 02/06/24 20:24 102 H 18 02/06/24 20:00 79 17 02/06/24 19:36 95 H 16 02/06/24 19:21 165/84 H 02/06/24 19:15 36.5 C 101 H 20 165/84 H 02/06/24 14:54 78 18 147/86 H 02/06/24 11:44 36.6 C 59 L 16 173/90 H Pulse Ox O2 Del Method 02/07/24 10:24 94 Room Air 02/07/24 10:09 02/07/24 09:09 02/07/24 08:15 02/07/24 08:03 02/07/24 08:02 02/07/24 08:00 02/07/24 07:47 02/07/24 07:27 02/07/24 07:15 02/07/24 07:00 02/07/24 06:51 02/07/24 06:33 02/07/24 06:21 02/07/24 06:09 02/07/24 05:45 02/07/24 05:39 02/07/24 05:24 02/07/24 05:00 02/07/24 04:48 02/07/24 04:30 02/07/24 04:18 02/07/24 04:03 02/07/24 03:48 02/07/24 03:34 95 Room Air 02/07/24 03:18 02/07/24 03:03 02/07/24 02:48 02/07/24 02:39 02/07/24 02:06 02/07/24 01:57 02/07/24 01:03 02/07/24 00:51 02/07/24 00:30 02/07/24 00:18 02/07/24 00:06 02/07/24 00:03 02/07/24 00:00 02/07/24 00:00 93 Room Air 02/06/24 23:51 02/06/24 23:27 02/06/24 23:03 02/06/24 22:48 02/06/24 22:39 02/06/24 22:06 02/06/24 21:48 02/06/24 21:30 02/06/24 21:27 02/06/24 20:51 02/06/24 20:36 02/06/24 20:24 02/06/24 20:00 02/06/24 19:36 02/06/24 19:21 02/06/24 19:15 95 Room Air 02/06/24 14:54 95 Room Air 02/06/24 11:44 96 Room Air Cardiovascular + regular rate + murmur Respiratory normal respiratory effort, lungs clear to auscultation Pre-Sedation Airway Assessment Smoking Status: Never smoker Hx Sleep Apnea: No Hx Difficult Intubation: No Short, Thick Neck: No Thyromental Distance: > or= 3.5 Finger Breadths Oral Cavity: + Dentures Mallampati Class: III ASA: ASA3 NPO Status Date of Last Intake of Fluids: 02/07/24 Date of Last Intake of Solid Food: 02/06/24 Procedure Planning Contraindications for Sedation: none Current Medications Reviewed: Yes Notes The planned sedation has been discussed with the patient. Informed Consent was obtained. I have identified the patient, determined the appropriateness of sedation and have assessed the patient immediately prior to the procedure. All medicine(s) and interventions are by my order.
[2024-02-07] MEDS: VANCOMYCIN HCL 1000MG/20ML VIAL ONE (10:54)
[2024-02-07] MEDS: WATER, STERILE FOR INJ 10 ML VIAL ONE (10:54)
[2024-02-07] MEDS: BUPIVACAINE 0.25% PF 30 ML VIAL ONE (10:54)
[2024-02-07] MEDS: LIDOCAINE 1% LOCAL 20 ML VIAL ONE (10:54)
[2024-02-07] MEDS: ceFAZolin 330 MG/ML 1 GM VIAL ONE (10:55)
[2024-02-07] MEDS: MIDAZOLAM HCL 5 MG/ML 1 ML VIAL ONE (12:08)
[2024-02-07] MEDS: fentaNYL citrate PF 100 MCG/2 ML VIAL ONE (12:08)
--- NOTE | 2024-02-07 12:10 | Post Anesthesia Assessment ---
Date of Service February 07, 2024 Post Sedation Assessment Vital Signs Temp Pulse Pulse Resp BP BP BP 02/07/24 10:24 76 18 154/82 H 02/07/24 10:09 72 17 02/07/24 09:09 82 23 02/07/24 08:15 80 18 02/07/24 08:03 71 27 H 02/07/24 08:02 160/93 H 02/07/24 08:00 89 02/07/24 07:47 142/87 H 02/07/24 07:27 68 16 02/07/24 07:15 58 L 14 02/07/24 07:00 62 4 L 02/07/24 06:51 71 10 L 02/07/24 06:33 66 16 02/07/24 06:21 72 13 02/07/24 06:09 100 H 20 02/07/24 05:45 67 14 02/07/24 05:39 70 19 02/07/24 05:24 62 16 02/07/24 05:00 56 L 19 02/07/24 04:48 62 15 02/07/24 04:30 67 12 02/07/24 04:18 81 8 L 02/07/24 04:03 63 10 L 02/07/24 03:48 60 9 L 02/07/24 03:34 36.4 C L 75 16 141/73 H 02/07/24 03:18 72 15 02/07/24 03:03 64 20 02/07/24 02:48 68 12 02/07/24 02:39 71 12 02/07/24 02:06 63 16 02/07/24 01:57 69 15 02/07/24 01:03 71 12 02/07/24 00:51 75 12 02/07/24 00:30 66 14 02/07/24 00:18 70 15 02/07/24 00:06 141/67 H 02/07/24 00:03 68 22 02/07/24 00:00 64 02/07/24 00:00 36.5 C 69 14 141/67 H 02/06/24 23:51 66 14 02/06/24 23:27 64 20 02/06/24 23:03 62 6 L 02/06/24 22:48 65 19 02/06/24 22:39 71 25 H 02/06/24 22:06 83 24 02/06/24 21:48 72 15 02/06/24 21:30 76 17 02/06/24 21:27 79 13 02/06/24 20:51 92 H 22 02/06/24 20:36 94 H 23 02/06/24 20:24 102 H 18 02/06/24 20:00 79 17 02/06/24 19:36 95 H 16 02/06/24 19:21 165/84 H 02/06/24 19:15 36.5 C 101 H 20 165/84 H 02/06/24 14:54 78 18 147/86 H Pulse Ox O2 Del Method 02/07/24 10:24 94 Room Air 02/07/24 10:09 02/07/24 09:09 02/07/24 08:15 02/07/24 08:03 02/07/24 08:02 02/07/24 08:00 02/07/24 07:47 02/07/24 07:27 02/07/24 07:15 02/07/24 07:00 02/07/24 06:51 02/07/24 06:33 02/07/24 06:21 02/07/24 06:09 02/07/24 05:45 02/07/24 05:39 02/07/24 05:24 02/07/24 05:00 02/07/24 04:48 02/07/24 04:30 02/07/24 04:18 02/07/24 04:03 02/07/24 03:48 02/07/24 03:34 95 Room Air 02/07/24 03:18 02/07/24 03:03 02/07/24 02:48 02/07/24 02:39 02/07/24 02:06 02/07/24 01:57 02/07/24 01:03 02/07/24 00:51 02/07/24 00:30 02/07/24 00:18 02/07/24 00:06 02/07/24 00:03 02/07/24 00:00 02/07/24 00:00 93 Room Air 02/06/24 23:51 02/06/24 23:27 02/06/24 23:03 02/06/24 22:48 02/06/24 22:39 02/06/24 22:06 02/06/24 21:48 02/06/24 21:30 02/06/24 21:27 02/06/24 20:51 02/06/24 20:36 02/06/24 20:24 02/06/24 20:00 02/06/24 19:36 02/06/24 19:21 02/06/24 19:15 95 Room Air 02/06/24 14:54 95 Room Air Recovery Score Activity: Moves 4 extremities Respiration: Deep Breath/Cough Circulation: +/-20% PreAnes Value Consciousness: Fully Awake Oxygen Saturation: > 92% On Room Air Discharge Sedation Level of Care: Fast Track Phase II Post Sedation Plan On clinical assessment, the patient appears to have tolerated the sedation without complications. Patient is recovering as anticipated. Patient will continue to be monitored by nursing and may be discharged when se dation discharge criteria are met per below protocol. Upon Completions of procedure up to 15 minutes continue every 5 minute vital signs and the P.A.R. score; then discharge to a Phase I or Fast Track to Phase II per the following guidelines: * Discharge Patient to appropriate Phase II area if PAR is 8 or greater or return to pre- procedure baseline. The post - procedure orders will be as directed. * If PAR score is less than 8 or not return to pre-procedure baseline then patient will follow Phase I monitoring till PAR is reached for Phase II. The Phase I may be done in procedure room or may call to secure a Phase I area. * If naloxone or flumazenil are used for reversal, hold in Phase I for continued monitoring from when last reversal dose was given for a minimum of 60 minutes or longer pending the nurse and/or physician discretion of patient condition before discharge to Phase II. Please call the Sedation Physician to re-evaluate and complete post-note for discharge to Phase II area. Do NOT discharge from procedure sedation or Phase 1 until post- sedation evaluation note is complete by procedure /sedation MD Sedation Discharge Instructions to be given to the patient at discharge to home.
--- NOTE | 2024-02-07 14:42 | XRay Report ---
XR chest 1V portable CLINICAL HISTORY: s/p ppm ensure no PTX TECHNIQUE: Single frontal radiograph of the chest was obtained. Comparison: Comparison is made to chest radiograph 02/06/2024 FINDINGS: Interval placement of a pacemaker with the leads in satisfactory position. The cardiomediastinal silh ouette is normal. The lungs are clear. No evidence of pleural effusion or pneumothorax. IMPRESSION: Interval placement of a pacemaker with the leads in satisfactory position. No evidence of pneumothora x. ACT 112: Negative or not required by law. Electronically signed by: Damien Barraza M.D. 02/07/2024 2:40 PM
[2024-02-07] MEDS ORDERED: ONDANSETRON INJ 2 MG/ML 2 ML VIAL IV PRN (16:00)
--- NOTE | 2024-02-07 16:10 | Cardiology Progress Note ---
Date of Service February 07, 2024 Assessment & Plan (1) Syncope and collapse: (2) Third degree AV block: Plan: * Recurrent syncope with reproduction of his symptoms correlating with pause episode of 13.5 seconds noted on a patient cardiac cath technologist. Episodes of i ntermittent third-degree heart block observed in the setting of underlying conduction system disease including first-degree AV block and bifascicular block (right bundle branch block left anterior fascicular block). * Patient s/p dual chamber [employer] pacemaker today (RA lead, left bundle lead) * Post procedure CXR without evidence of pneumothorax. * Repeat pacer check performed by [employer] with normal device function * EKG reveals SR with AV sequential pacing. * Proceed with Tylenol and Zofran * Will reassess with regards to going home later today, or reassessment tomorrow. (3) Aortic valve regurgitation: Plan: * Suspect severe aortic valve regurgitation. * Moderate left ventricular systolic dysfunction noted on recent cardiac MRI, LVEF=34% * Plan for patient to return for outpatient MOHAMUD on Tuesday02/10/24 pt arrival 6:45 am. (4) Ascending aorta enlargement: Plan: * Moderate aortic root enlargement, 4.6 cm, moderate ascending aorta enlargement, 4.5 cm * After pacemaker placed, anticipate proceeding with transesophageal echocardiogram, future coronary angiography (this admission or as outpatient in the near future) and referral to CT surgery for consideration of aortic valve replacement and aortic root/ascending aorta repair +/- CABG if indicated (5) Hypertension: Plan: * Continue outpatient amlodipine and valsartan Holding off on Pharmacologic DVT prophylaxis in order to reduce risk of pocket hematoma Admission and Anticipated Discharge Date Admission Date: February 06, 2024 Subjective Patient seen in follow up post pacemaker. Notes acute onset of nausea before my arrival. Pain from procedure site is controlled. Telemetry reveals SR with ventricular pacing. Physical Exam Physical Exam: Temp Pulse Resp BP Pulse Ox O2 Del Method 36.4 C L 74 10 L 132/80 92 Room Air 02/07/24 03:34 02/07/24 14:03 02/07/24 14:03 02/07/24 12:45 02/07/24 12:33 02/07/24 12:33 General: no acute distress and stated age Eyes: conjunctiva are pink and non-injected, sclera clear Neck: normal jugular venous pulse, no hepatojugular reflux Chest: normal shape and normal respiratory effort Lungs: clear to auscultation and percussion Cardiac Exam: - regular heart sounds,2/6 diastolic murmur noted Abdomen: abdomen soft, non-tender, no abnormal masses and no hepatosplenomegaly Musculoskeletal: no gait disturbance, no weakness Extremities: no edema and no cyanosis Neuro:awake, conversant, follows commands, no focal motor deficits Psych: appropriate affect and insight. Results & Data Vital Signs (Past 12 Hours) Vital Signs Pulse Pulse Resp BP BP Pulse Ox O2 Del Method 02/07/24 14:03 74 10 L 02/07/24 13:00 75 21 02/07/24 12:48 81 35 H 02/07/24 12:45 132/80 02/07/24 12:33 75 16 116/60 92 Room Air 02/07/24 12:18 68 16 125/77 92 Room Air 02/07/24 10:24 76 18 154/82 H 94 Room Air 02/07/24 10:12 74 15 02/07/24 10:09 72 17 02/07/24 09:09 82 23 02/07/24 08:15 80 18 02/07/24 08:03 71 27 H 02/07/24 08:02 160/93 H 02/07/24 08:00 89 02/07/24 07:47 142/87 H 02/07/24 07:27 68 16 02/07/24 07:15 58 L 14 02/07/24 07:00 62 4 L 02/07/24 06:51 71 10 L 02/07/24 06:33 66 16 02/07/24 06:21 72 13 02/07/24 06:09 100 H 20 02/07/24 05:45 67 14 02/07/24 05:39 70 19 02/07/24 05:24 62 16 02/07/24 05:00 56 L 19 02/07/24 04:48 62 15 02/07/24 04:30 67 12 02/07/24 04:18 81 8 L
--- NOTE | 2024-02-07 20:26 | Electrocardiogram Report ---
Test Reason : Blood Pressure : */* mmHG Vent. Rate : 76 BPM Atrial Rate : 76 BPM P-R Int : 172 ms QRS Dur : 174 ms QT Int : 514 ms P-R-T Axes : -3 197 152 degrees QTcB Int : 578 ms AV dual-paced rhythm with frequent Premature ventricular complexes Abnormal ECG When compared with ECG of 06-Feb-2024 11:05, AV pacing is now present Confirmed by Sebastian Etienne ([id number]) on 02/07/2024 8:26:13 PM Referred By: Angel Gooden Confirmed By: Sebastian Etienne
[2024-02-07] MEDS: ONDANSETRON INJ 2 MG/ML 2 ML VIAL IV STA (22:35)
[2024-02-08 00:56] VITALS: O2SAT 93
[2024-02-08 04:52] LABS: Hemoglobin 15.2 g/dl (14.0-18.0); Mean Corpuscular Hemoglobin 31.8 pg (25.0-34.0); Mean Corpuscular Hgb Conc 34.5 g/dL (32.0-36.0); Mean Corpuscular Volume 92.1 fL (80.0-100.0); Mean Platelet Volume 10.6 fL (9.4-12.4); Platelet Count 254 K/uL (130-400); RDW Coefficient of Variation 12.6 % (11.5-14.5); RDW Standard Deviation 42.2 fL (36.4-46.3); Red Blood Count 4.78 M/uL (4.70-6.10); White Blood Count 13.78 K/ul (4.8-10.8)
[2024-02-08 05:09] LABS: Albumin Globulin Ratio 1.2 (0.9-2); BUN Creatinine Ratio 30.6 (10-20); Bilirubin,Total 0.9 mg/dl (0.2-1.0); Calcium 9.4 mg/dl (8.6-10.3); Creatinine Clr Calc Pharmacy 71.5 ml/min; Globulin 3.4 gm/dl (2.5-4.0); Potassium 3.8 mmol/L (3.5-5.1); Total Protein 7.4 gm/dl (6.0-8.3)
[2024-02-08] MEDS: ACETAMINOPHEN 325 MG TAB PO PRN (08:59)
--- NOTE | 2024-02-08 10:48 | Cardiology Progress Note ---
Date of Service February 08, 2024 Assessment & Plan (1) Syncope and collapse: (2) Third degree AV block: Plan: * Recurrent syncope with reproduction of his symptoms correlating with pause episode of 13.5 seconds noted on a patient monitoring engineer. Episodes of int ermittent third-degree heart block observed in the setting of underlying conduction system disease including first-degree AV block and bifascicular block (right bundle branch block left anterior fascicular block). * Patient s/p dual chamber [employer] pacemaker today (RA lead, left bundle lead) * Post procedure CXR without evidence of pneumothorax. * Repeat pacer check performed by [employer] with normal device function * EKG reveals SR with AV sequential pacing. * Stable for discharge. Plan for wound check/pacemaker check in 7 to 10 days as outpatient. (3) Aortic valve regurgitation: Plan: * Suspect severe aortic valve regurgitation. * Moderate left ventricular systolic dysfunction noted on recent cardiac MRI, LVEF=34% * Plan for patient to return for outpatient MOHAMUD on Tuesday02/10/24 pt arrival 6:45 am. (4) Ascending aorta enlargement: Plan: * Moderate aortic root enlargement, 4.6 cm, moderate ascending aorta enlargement, 4.5 cm * After pacemaker placed, anticipate proceeding with transesophageal echocardiogram, future coronary angiography (this admission or as outpatient in the near future) and referral to CT surgery for consideration of aortic valve replacement and aortic root/ascending aorta repair +/- CABG if indicated (5) Hypertension: Plan: * Continue outpatient amlodipine and valsartan Holding off on Pharmacologic DVT prophylaxis in order to reduce risk of pocket hematoma Admission and Anticipated Discharge Date Admission Date: February 06, 2024 Subjective Patient seen in cardiology follow-up. His son is at the bedside. He rested well last night. The nauseousness that he had late yesterday afternoon resolved after a dose of Zofran and has not returned. His pain has been well-controlled with acetaminophen. Telemetry reveals sinus rhythm with AV sequential pacing. At times his tolowa dee-ni' QRS complexes are noted with rate in the 90s. Physical Exam Physical Exam: Temp Pulse Resp BP Pulse Ox O2 Del Method 36.4 C L 78 12 140/81 93 Room Air 02/08/24 04:00 02/08/24 07:12 02/08/24 07:12 02/08/24 04:10 02/08/24 04:00 02/08/24 04:00 General: no acute distress and stated age Eyes: conjunctiva are pink and non-injected, sclera clear Neck: normal jugular venous pulse, no hepatojugular reflux Chest: normal shape and normal respiratory effort Lungs: clear to auscultation and percussion Cardiac Exam: - regular heart sounds,2/6 diastolic murmur noted Abdomen: abdomen soft, non-tender, no abnormal masses and no hepatosplenomegaly Musculoskeletal: no gait disturbance, no weakness Extremities: no edema and no cyanosis Neuro:awake, conversant, follows commands, no focal motor deficits Psych: appropriate affect and insight. Results & Data Vital Signs (Past 12 Hours) Vital Signs Temp Pulse Pulse Resp BP BP Pulse Ox 02/08/24 07:12 78 12 02/08/24 06:00 73 21 02/08/24 05:03 71 12 02/08/24 04:10 140/81 02/08/24 04:09 75 20 02/08/24 04:00 36.4 C L 77 15 140/81 93 02/08/24 03:27 70 12 02/08/24 02:08 78 0 L 02/08/24 01:05 84 13 02/08/24 00:51 137/70 02/08/24 00:32 76 12 02/08/24 00:11 83 18 02/08/24 00:00 36.9 C 76 12 137/70 93 02/07/24 23:00 77 23 O2 Del Method 02/08/24 07:12 02/08/24 06:00 02/08/24 05:03 02/08/24 04:10 02/08/24 04:09 02/08/24 04:00 Room Air 02/08/24 03:27 02/08/24 02:08 02/08/24 01:05 02/08/24 00:51 02/08/24 00:32 02/08/24 00:11 02/08/24 00:00 Room Air 02/07/24 23:00
--- NOTE | 2024-02-08 11:01 | Discharge Summary ---
Date of Service February 08, 2024 Admission HPI Per Admitting Provider Mr Moore is a 73 year old male who presents today for previously scheduled outpatient transesophageal echocardiogram for the evaluation of aortic valve regurgitation. The patient was initially seen in outpatient cardiology consultation by the undersigned on 01/10/2024 at that time he had described episodes of recurrent syncope as well as shortness of breath with exertion. The episodes of syncope have been present since around 2019 or 2020 as he recalls having the first episode just after he had a COVID booster vaccination. The episodes of syncope are preceded by dizziness and have resulted in multiple falls including instances at home and in public places and while golfing. In evaluation of the symptoms he had undergone a twelve-lead resting EKG on 12/29/2023 that revealed evidence of sinus rhythm with first-degree AV block with CA interval of approximately 240 ms, as well as a bifascicular block (right bundle branch block, left anterior fascicular block QRS duration 160 ms). A transthoracic echocardiogram was performed on 12/29/2023 revealing abnormal septal motion consistent with intraventricular conduction delay with borderline diffuse left ventricular hypokinesis noted otherwise LVEF in the range of 50 to 54%. The aortic valve was trileaflet in morphology and mildly calcified without evidence of aortic stenosis moderate to severe aortic valve regurgitation was noted with an eccentric jet coursing across the anterior mitral valve leaflet. Cardiac MRI performed 01/25/2024 revealed moderate left ventricular systolic dysfunction calculated LVEF 34%. Initial calculations suggested mild aortic valve regurgitation but this has since been reassessed in a multimodality fashion and repeat calculations were consistent with severe aortic valve regurgitation by MRI criteria. The patient was scheduled for an outpatient transesophageal echocardiogram today for further assessment of the aortic valve regurgitation but in the meantime the results of his 2-week Zio patch became available over the weekend. The predominant rhythm was sinus rhythm with average rate of 73 bpm however the patient was noted to have 7 pauses greater than 3 seconds the longest of which was 13.5 seconds in duration and occurred on 01/17/2024 at 9:55 PM and per discussion with the patient today correlated with a syncopal episode at home. Further review of the rhythm strips are consistent with intermittent third- degree AV block with bradycardia down to the 20s premature ventricular contractions were present of moderate frequency, 4.5% PVC burden and subjective symptoms also correlated with the premature ventricular contractions. Although there are 2 episodes of a wide-complex tachycardia that on preliminary review felt to possibly be ventricular tachycardia, QRS morphology and duration looks very similar to the sinus beats and I think this may actually be an SVT in the setting of bifascicular block. Principal Diagnosis Syncope Discharge Exam Temp Pulse Resp BP Pulse Ox O2 Del Method 36.4 C L 78 12 140/81 93 Room Air 02/08/24 04:00 02/08/24 07:12 02/08/24 07:12 02/08/24 04:10 02/08/24 04:00 02/08/24 04:00 General: no acute distress and stated age Eyes: conjunctiva are pink and non-injected, sclera clear Neck: normal jugular venous pulse, no hepatojugular reflux Chest: normal shape and normal respiratory effort Lungs: clear to auscultation and percussion Cardiac Exam: - regular heart sounds,2/6 diastolic murmur noted Abdomen: abdomen soft, non-tender, no abnormal masses and no hepatosplenomegaly Musculoskeletal: no gait disturbance, no weakness Extremities: no edema and no cyanosis Neuro:awake, conversant, follows commands, no focal motor deficits Psych: appropriate affect and insight. Discharge Data Allergies Allergy/AdvReac Type Severity Reaction Status Date / Time NSAIDS (Non-Steroidal Allergy Unknown unknown, Verified 02/07/24 10:25 Anti-Inflamma listed in [facility] EMR Procedures Performed Operation Date: 02/07/24 12:00 Actual Procedures p Pacer with A/V Leads (Dual) - Shannon Fletcher DO s Venogram, Unilateral - Shannon Fletcher DO Ordered Studies 02/07/24 07:30 EP Lab Images for PACS ONCE Hospital Course (1) Syncope and collapse: (2) Third degree AV block: * Recurrent syncope with reproduction of his symptoms correlating with pause episode of 13.5 seconds noted on a patient cardiac cath lab radiology technologist. Episodes of intermittent third-degree heart block observed in the setting of underlying conduction system disease including first-degree AV block and bifascicular block (right bundle branch block left anterior fascicular block). * Patient s/p dual chamber [employer] pacemaker 02/07/24 (RA lead, left bundle lead) * Post procedure CXR without evidence of pneumothorax. * Repeat pacer check performed by [employer] [facility] with normal device function * EKG reveals SR with AV sequential pacing. * Stable for discharge. Plan for wound check/pacemaker check in 7 to 10 days as outpatient. (3) Aortic valve regurgitation: * Suspect severe aortic valve regurgitation. * Moderate left ventricular systolic dysfunction noted on recent cardiac MRI, LVEF=34% * Plan for patient to return for outpatient MOHAMUD on Tuesday02/10/24 pt arrival 6:45 am. (4) Ascending aorta enlargement: * Moderate aortic root enlargement, 4.6 cm, moderate ascending aorta enlargement, 4.5 cm * After pacemaker placed, anticipate proceeding with transesophageal echocardiogram, future coronary angiography (this admission or as outpatient in the near future) and referral to CT surgery for consideration of aortic valve replacement and aortic root/ascending aorta repair +/- CABG if indicated (5) Hypertension: * Continue outpatient amlodipine and valsartan Holding off on Pharmacologic DVT prophylaxis in order to reduce risk of pocket hematoma Total Time Total Time Spent Total Time Spent (In Minutes): 45 Discharge Plan Discharge Items Patient Disposition: Home - Home Health Services Reason For Visit: Non-rheumatic Aortic Valve Insufficiency, Syncope Discharge Diagnosis: Syncope, intermittent complete heart block Activity: As commented below Activity Comment: do not raise the left elbow above the left shoulder for 1 month Lifting: No more than 10 pounds Lifting Comment: do not lift more than 10 pounds with the left arm for 2 weeks Bathing: Keep incision dry Bathing Comment: keep dressing on & dry until wound check-no shower Non-emergency contact: [place] Call non-emergency contact if: you have any medication questions, your symptoms worsen, your pain is not controlled and your wound pain has increased Follow-up/Referrals: PCP,NO [Primary Care Provider] - Diet: Heart Healthy Addtl Attending Provider Instructions: Device and wound check at [facility] in [facility] in about 10 days someone will call you with time and day For pain, take Tylenol (acetaminophen) 325 mg tablets, 2 tablets every 6 hours as needed for pain. A separate prescription for oxycodone/acetaminophen 5/325 mg 1 tablet by mouth every 4 hours was already sent to your [facility] pharmacy. Pending Studies at Discharge: No Stand-Alone Forms: My [facility] [employer], Smoking Cessation Medications and DC Order Prescriptions: New acetaminophen [Tylenol] 325 mg tablet 650 mg PO Q6H PRN (Reason: fever or pain) Qty: 60 0RF Continued potassium chloride 10 mEq Capsule, Extended Release 10 meq PO QAM atorvastatin 20 mg Tablet 20 mg PO QAM amlodipine 2.5 mg Tablet 2.5 mg PO QAM valsartan 320 mg Tablet 320 mg PO HS vitamin B complex Tablet 2 tab PO DAILY furosemide 20 mg Tablet 20 mg PO QAM magnesium 200 mg Tablet 400 mg PO QPM Centrum Men 8 mg iron- 200 mcg-600 mcg Tablet 1 tab PO QPM aspirin 81 mg Capsule 81 mg PO DAILY Discharge Orders: Discharge Order (Routine); Ordered 02/08/24 Ordered By: Angel Gooden Admission Data Admit Date/Time: 02/06/24 07:28 Attending Provider: Angel Gooden Admit Provider: Angel Gooden Primary Care Provider: PCP,SHRUTI
[2024-02-08 12:47] VITALS: BP 140/81; PULSE 77; RESP 20; TEMP 98.6
== END 2024-02-08 13:48 | disposition home or self-care (01) | DRG 244 ==
LOC: CC 06:22 → 1E 07:28